=== PATIENT | female | born 1960 | race Two or more races ===

== ENCOUNTER → 2021-07-11 09:32 | Outpatient (BNVA) | payer MEDICARE, MEDICAID, SELFPAY | PROVIDERS: Visit Provider Obstetrics & Gynecology | DX: Z01.419 Encounter for gynecological examination (general) (routine) without abnormal findings (principal) | CPT/HCPCS: 99212 ==

== ENCOUNTER 2022-09-26 08:51 | Outpatient (REF) | payer OTHER, SELFPAY ==
[2022-09-27 10:01] LABS: BV Int Neg Control Negative (Negative); BV Int Pos Control Positive (Positive)
== END 2022-09-26 08:52 | disposition home or self-care (01) ==
LOC: HO.LNP 08:51
PROVIDERS: Visit Provider Obstetrics & Gynecology
DX: N90.89 Other specified noninflammatory disorders of vulva and perineum (principal)
CPT/HCPCS: 87480; 87510; 87660; 99212

== ENCOUNTER 2022-10-17 08:07 | Outpatient (REF) | payer MEDICARE, SELFPAY ==
[2022-10-17 09:28] LABS: Syphilis Screen Nonreactive (Nonreactive)
[2022-10-18 05:09] LABS: HBsAGNum1 0.28 S/CO (0.00-0.99); HIV AB/AG Nonreactive (Nonreactive); HIV Num 1 0.06 S/CO (0.00-0.99); Hepatitis B Surface Antigen Negative (Negative); ~Hepatitis C Antibody Nonreactive (Nonreactive)
== END 2022-10-17 08:08 | disposition home or self-care (01) ==
LOC: HO.LAB 08:07
PROVIDERS: Visit Provider Obstetrics & Gynecology
DX: N76.0 Acute vaginitis (principal); B96.89 Other specified bacterial agents as the cause of diseases classified elsewhere; L30.9 Dermatitis, unspecified
CPT/HCPCS: 36415; 86780; 86803; 87340; 87389; 99212

== ENCOUNTER → 2022-11-02 08:52 | Outpatient (BNVA) | payer MEDICARE, MEDICAID, SELFPAY | PROVIDERS: Visit Provider Obstetrics & Gynecology | DX: Z13.89 Encounter for screening for other disorder (principal) ==

== ENCOUNTER 2022-11-22 12:11 | Outpatient (REF) | payer OTHER, SELFPAY | END 2022-11-22 12:12 | disposition home or self-care (01) | LOC: HO.LNP 12:11 | PROVIDERS: Visit Provider Obstetrics & Gynecology | DX: N90.89 Other specified noninflammatory disorders of vulva and perineum (principal) | CPT/HCPCS: 56605; 56606; 88305; 88312; 88341; 88342 ==

== ENCOUNTER 2022-12-01 13:46 | Outpatient (REF) | payer OTHER, SELFPAY ==
[2022-12-02 12:55] LABS: BV Int Neg Control Negative (Negative); BV Int Pos Control Positive (Positive)
== END 2022-12-01 13:47 | disposition home or self-care (01) ==
LOC: HO.LNP 13:46
PROVIDERS: Visit Provider Advanced Practice Midwife
DX: N89.8 Other specified noninflammatory disorders of vagina (principal)
CPT/HCPCS: 87480; 87510; 87660; 99212

== ENCOUNTER → 2022-12-13 09:47 | Outpatient (BNVA) | payer OTHER, SELFPAY | PROVIDERS: Visit Provider Obstetrics & Gynecology | DX: N90.89 Other specified noninflammatory disorders of vulva and perineum (principal); N76.0 Acute vaginitis; B96.89 Other specified bacterial agents as the cause of diseases classified elsewhere | CPT/HCPCS: 99212 ==

== ENCOUNTER 2023-01-17 12:56 | Outpatient (REF) | payer OTHER, SELFPAY ==
[2023-01-18 10:54] LABS: BV Int Neg Control Negative (Negative); BV Int Pos Control Positive (Positive)
== END 2023-01-17 12:57 | disposition home or self-care (01) ==
LOC: HO.LNP 12:56
PROVIDERS: Visit Provider Obstetrics & Gynecology
DX: B37.31 Acute candidiasis of vulva and vagina (principal)
CPT/HCPCS: 87480; 87510; 87660; 99212

== ENCOUNTER 2023-11-06 10:23 | Outpatient (AMB) | payer OTHER, SELFPAY ==
[2023-11-06 10:29] VITALS: BP 136/88; BMI 49.1
--- NOTE | 2023-11-06 10:29 | MHC.OFFVIS ---
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 Machine Operator Present (Annalise THOMPSON) Accompanied by: Self / Same As Patient Allergies JARRET Inhibitors [Jarret Inhibitors] Allergy (Severe, Verified 11/06/23 10:33) SWELLING guaifenesin [From Robitussin A-C] Allergy (Severe, Verified 11/06/23 10:33) SWELLING Iodinated Contrast Media [IV Dye, Iodine Containing] Allergy (Severe, Verified 11/06/23 10:33) SWELLING nifedipine [NIFEDIPINE] Allergy (Unknown, Verified 11/06/23 10:33) SWELLING pioglitazone Allergy (Unknown, Verified 11/06/23 10:33) Unknown diphenhydramine [From Benadryl] Allergy (Verified 11/06/23 10:33) Unknown Robitussin Chest Congestion Allergy (Unknown, Uncoded 11/06/23 10:33) Unknown Robitussin Cold/Congestion Allergy (Unknown, Uncoded 11/06/23 10:33) Unknown Post menopausal: Yes HPI HPI Comments History of Present Illness Details Presenting for annual exam with no complaints. Last Pap smear/HPV were both negative in 2015. No history of abnormal Pap smear last 25 years. Patient had total abdominal hysterectomy with bilateral salpingo oophorectomy for stage I A grade 1 uterine cancer in July 2017, and had 4 years of surveillance at [facility] at [facility] afterwards. Since then patient is doing well with no complaints. Last mammogram was done in [place] 01/07 was normal according the patient, no results available Last colonoscopy was many years ago, the patient is due for another screening colonoscopy [facility] Medical History Diabetes Endometrial cancer Fibromyalgia Hypertension Surgical History Hx of section S/P total abdominal hysterectomy and bilateral salpingo-oophorectomy Family History (Updated 11/06/23 @ 10:39 by Annalise Rutledge CMA) Mother Diabetes HTN (hypertension) Sister Diabetes Father Stroke HTN (hypertension) Social History Household Members: None Housing: Apartment Alcohol intake: current Alcohol intake frequency: holidays/special occasions only Patient Tobacco Use Status: Never used Tobacco Current occupational status: retired Sexual orientation: Straight/Heterosexual Gender identity: Female Female Reproductive History Menstrual Age of Menarche: 12 Menopause type: surgical Total pregnancies: 1 Full term: 1 Number of Living Children: 2 Multiple births: 1 Review of Systems Const All systems reviewed & are unremarkable except as noted in HPI and below Card Reports as per HPI and Reports no additional complaints Resp Reports as per HPI and Reports no additional complaints GI Reports as per HPI and Reports no additional complaints Reports as per HPI Physical Exam Vital Signs: BMI result Body Mass Index 49.1 Const General: cooperative, healthy appearing and comfortable General: Yes bladder normal to palpation External Female Exam: No lesion Speculum Exam - Vagina: normal appearance of the vagina, normal vaginal discharge and not erythematous Speculum Exam - Cervix: Cervix absent Bimanual exam- vagina & uterus: bladder normal to palpation and uterus absent Bimanual Exam- Adnexa, other: Other (No masses detected) Assessment & Plan Assessment & Plan (1) Well woman exam: Code(s): Z01.419 - Encounter for gynecological examination (general) (routine) without abnormal findings Plan: Co testing not indicated since the patient status post hysterectomy with no history of abnormal Pap smears last 25 years. Counseled the patient about the recommended dietary allowance of 1200 mg of Calcium & 800 IU of vitamin D. Instructions given the patient to schedule next screen Mammogram in 01/08. Referred her for screening colonoscopy done. The patient was instructed to perform monthly self-breast exams and to schedule an annual exam in a year; All questions answered and the patient verbalized understanding. Orders: Referrals Gastroenterology Referral Z12.11 - Encounter for screening for malignant neoplasm of colon Coding Level of Care Code Est Pt Prev Care 40-64y(32737) Diagnoses Well woman exam Z01.419
== END 2023-11-06 11:03 | disposition home or self-care (01) ==
PROVIDERS: Visit Provider Obstetrics & Gynecology
DX: Z01.419 Encounter for gynecological examination (general) (routine) without abnormal findings (principal)
CPT/HCPCS: 99396

== ENCOUNTER → 2023-11-06 10:23 | Outpatient (BNVA) | payer OTHER, SELFPAY | PROVIDERS: Visit Provider Obstetrics & Gynecology ==

== ENCOUNTER 2024-01-16 08:49 | Outpatient (AMB) | payer OTHER, SELFPAY ==
--- NOTE | 2024-01-16 08:52 | MHC.OFFVIS ---
Vital Signs 01/16/24 09:07 Height 5 ft 4 in Weight 290 lb BMI 49.8 BP 137/66 Blood Pressure Location Lt brachial Position Sitting Intake Visit Reasons: Colonoscopy Screening Intake Note: Patient is seen in office for colonoscopy screening. Pt c/o: prior colonoscopy over [address] Grimaldo, admits to nausea, denies diarrhea, constipation, vomit, blood in stool or other concerns Cloth Baler Required: No Allergies JARRET Inhibitors [Jarret Inhibitors] Allergy (Severe, Verified 01/16/24 10:10) SWELLING guaifenesin [From Robitussin A-C] Allergy (Severe, Verified 01/16/24 10:10) SWELLING Iodinated Contrast Media [IV Dye, Iodine Containing] Allergy (Severe, Verified 01/16/24 10:10) SWELLING nifedipine [NIFEDIPINE] Allergy (Unknown, Verified 01/16/24 10:10) SWELLING pioglitazone Allergy (Unknown, Verified 01/16/24 10:10) Unknown diphenhydramine [From Benadryl] Allergy (Verified 01/16/24 10:10) Unknown Robitussin Chest Congestion Allergy (Unknown, Uncoded 01/16/24 08:57) Unknown Robitussin Cold/Congestion Allergy (Unknown, Uncoded 01/16/24 08:57) Unknown HPI HPI Colonoscopy Screening: Details: 63 year old? female here today for pre colonoscopy screening.? Patient was seen Dr. Grimaldo in the past and was referred to his office. Patient called his office and unable to make an appointment. Appointment made here as patient wants to go for bariatric surgery. Has seen bariatric services in [facility] and would like to try to see our providers. Referral to [facility] bariatric services will be made. Last colonoscopy was done in 2019 and tubular adenoma found. Patient currently experiences constipation postprandial abdominal fullness and bloating. Postprandial epigastric pain. Patient feels epigastric burning all the time. Reports that during the night she has acid reflux as well. Patient reports that she does not eat past 19:00. Patient is diabetic and is on Trulicity. Currently is not taking Trulicity as medication is on back order. No Trulicity before denies 2 weeks. Patient reports that she is currently on pantoprazole 20 mg every morning, however patient states that sometimes she has to take 2nd dose in the evening because of severe acid reflux. Patient reports occasional dysphagia without odynophagia. [facility] Medical History (Updated 11/06/23 @ 10:52 by Andres Tavera MD) Endometrial cancer Fibromyalgia Hypertension Diabetes Surgical History (Updated 01/16/24 @ 08:59 by JAY Egan) Hx of colonoscopy Hx of section S/P total abdominal hysterectomy and bilateral salpingo-oophorectomy Family History Mother Diabetes HTN (hypertension) Sister Diabetes Father Stroke HTN (hypertension) Social History Household Members: None Housing: Apartment Alcohol intake: current Alcohol intake frequency: holidays/special occasions only Patient Tobacco Use Status: Never used Tobacco Current occupational status: retired Sexual orientation: Straight/Heterosexual Gender identity: Female Female Reproductive History Menstrual Age of Menarche: 12 Review of Systems Const Denies weight gain and Denies weight loss ENT Reports no additional complaints, Reports dysphagia (Occasional) and Denies odynophagia Card Reports no additional complaints Resp Reports no additional complaints GI Reports abdominal pain (Epigastric), Denies belching, Denies melena, Reports bloating, Reports constipation, Reports dysphagia (Occasional), Denies excessive flatus, Reports dyspepsia, Reports heartburn, Denies diarrhea, Denies loose stools, Denies nausea, Denies odynophagia and Denies vomiting Reports no additional complaints Musc Reports no additional complaints Neuro Reports no additional complaints Psych Reports no additional complaints Endo Reports no additional complaints Physical Exam Vital Signs: Last Vital Signs BP 137/66 01/16/24 09:07 BMI result Body Mass Index 49.8 Const General: healthy appearing and no acute distress Nutritional Appearance: obese Orientation/consciousness: patient oriented x3 Resp Effort & Inspection: normal respiratory effort, able to speak in complete sentences, no tracheal deviation and symmetric chest movement Auscultation: clear to auscultation bilaterally Cardio Rate: regular rate GI Inspection: Yes normal to inspection, No distended and Yes obesity Palpation (GI): Soft to palpation, not firm, nontender and No hepatosplenomegaly present Auscultation: normal bowel sounds General: Yes no CVA tenderness Back/Spine/Pelvis Back: no CVA tenderness Skin General skin exam: elasticity normal, turgor normal and dry skin Neuro General: patient oriented x3 Psych Appearance: grossly normal Mental Status: mental status grossly normal Assessment & Plan Assessment & Plan (1) Encounter for screening colonoscopy: Code(s): Z12.11 - Encounter for screening for malignant neoplasm of colon Category: Medical (2) Dyspepsia: Code(s): R10.13 - Epigastric pain (3) Dysphagia: Code(s): R13.10 - Dysphagia, unspecified Qualifiers: Dysphagia type: pharyngoesophageal phase Qualified Code(s): R13.14 - Dysphagia, pharyngoesophageal phase (4) GERD (gastroesophageal reflux disease): Code(s): K21.9 - Gastro-esophageal reflux disease without esophagitis Qualifiers: Esophagitis presence: esophagitis presence not specified Qualified Code(s): K21.9 - Gastro-esophageal reflux disease without esophagitis (5) Constipation: Code(s): K59.00 - Constipation, unspecified Qualifiers: Constipation type: slow transit constipation Qualified Code(s): K59.01 - Slow transit constipation Plan Continue taking pantoprazole daily. Will add famotidine at bedtime. Patient will start taking senna daily. Increase fluid intake and activity to promote better bowel motility. Patient will be sent for upper GI study to check for reflux, hernia patient reports to have dyspepsia with dysphagia frequent feeling of fullness postprandially. Gastric emptying study normal in 2020. Referral to bariatric services. I will see patient in 5-6 weeks to re-evaluate. Patient is agreeable to this plan and verbalizes understanding of instructions. She was given the opportunity to ask questions and all questions answered. Thank you for allowing me to participate in her care Orders: Orders FL upper GI small bowel Today K21.9 - Gastro-esophageal reflux disease without esophagitis Referrals Bariatric Surgery Referral E66.01 - Morbid (severe) obesity due to excess calories Medications: New sennosides (Natural Senna Laxative) 17.2 mg (2 x 8.6 mg) PO BEDTIME 60 tabs 3RF constipation K59.00 - Constipation, unspecified famotidine (Pepcid) 20 mg PO BEDTIME 30 tabs 3RF K21.9 - Gastro-esophageal reflux disease without esophagitis Coding Level of Care Code New Pt Level 4 (19515) Diagnoses Encounter for screening colonoscopy Z12.11 Dyspepsia R10.13 Pharyngoesophageal dysphagia R13.14 Dysphagia type: pharyngoesophageal phase Gastroesophageal reflux disease, unspecified whether esophagitis present K21.9 Esophagitis presence: esophagitis presence not specified Slow transit constipation K59.01 Constipation type: slow transit constipation Time Spent (min) 45 Comment 30 minutes spent with patient and additional 15 minutes spent reviewing her records
[2024-01-16 09:07] VITALS: BP 137/66; BMI 49.8
== END 2024-01-16 09:56 | disposition home or self-care (01) ==
PROVIDERS: Visit Provider Nurse Practitioner Family
DX: K21.9 Gastro-esophageal reflux disease without esophagitis (principal); K59.01 Slow transit constipation; R13.14 Dysphagia, pharyngoesophageal phase; Z12.11 Encounter for screening for malignant neoplasm of colon
CPT/HCPCS: 99204

== ENCOUNTER → 2024-01-16 08:49 | Outpatient (BNVA) | payer OTHER, SELFPAY | PROVIDERS: Visit Provider Nurse Practitioner Family | DX: Z12.11 Encounter for screening for malignant neoplasm of colon (principal); K21.9 Gastro-esophageal reflux disease without esophagitis; K59.01 Slow transit constipation; R10.13 Epigastric pain; R13.14 Dysphagia, pharyngoesophageal phase | CPT/HCPCS: 99202 ==

== ENCOUNTER 2024-03-13 08:06 | Outpatient (REF) | payer OTHER, SELFPAY ==
--- NOTE | ~2024-03-13 | FL_ITS ---
EXAMINATION: XR FLUOROSCOPY UPPER GI WITH AIR AND SMALL BOWEL SERIES CLINICAL INFORMATION: Reflux. Lower abdominal pain COMPARISON: None TECHNIQUE: Fluoroscopic air contrast upper GI examination was performed utilizing standard techniques with thin and thick barium and effervescent granules. Numerous spot images were obtained. This was followed by small bowel series utilizing overhead abdominal radiographs at certain intervals during the propagation of contrast through the small bowel to the ileocecal valve. Fluoroscopic spot radiographs were taken of any abnormal findings. FINDINGS: UPPER GI SERIES: Dual and single contrast images of the esophagus demonstrate normal caliber and contour. No masses or strictures are seen. Esophageal peristalsis was mildly disorganized. Small type I hiatal hernia is present. Gastroesophageal reflux is seen up to the level the aortic arch. Dual contrast and single contrast images of the stomach demonstrated normal contour and mucosal pattern without evidence of mass, ulceration, or other abnormality. Contrast freely passed into the gastric antrum and duodenal bulb without delay. Single and air-contrast images of the duodenal bulb demonstrate no abnormality. The duodenal sweep has a normal appearance, course, and mucosal fold appearance. 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 Moderate amount is retained stool within the colon. Degenerative facet changes are present at L5-S1. Mild degenerative changes in both hip joints. No organomegaly. No abnormal soft tissue calcification. The imaged small bowel has a normal fold pattern and caliber. There are no dilated segments or loops of jejunum or ileum. Contrast does not progress beyond the distal ileum in the right lower quadrant in the pelvis after 3 hours. This segment of bowel is not dilated, and overlies the right iliac wing. It is normal in caliber without dilatation. Spot radiographs performed demonstrate no definitive abnormality although a slightly more distal ileal stricture cannot be ruled out due to failure to progress into the ileocecal valve. This could also be from extensive constipation (RF 1-22, image 84 of 138). FLUOROSCOPY TIME: 8 minutes 36 seconds Number of Spot Images: 21 Number of Cine: 13 Flat plates: 10 DOSE AREA PRODUCT: [id number] uGy-m2 (microgray-meter squared) FL/FL upper GI small bowel IMPRESSION: 1. No laryngeal penetration or aspiration. 2. Mildly disorganized esophageal peristalsis. 3. Small type I hiatal hernia. 4. Moderate gaseous esophageal reflux. 5. Normal-appearing small bowel to the level of the terminal ileum. 6. Failure of contrast to progress beyond the distal ileum in the right lower quadrant, overlying the right iliac bone, after 3 hours. Uncertain etiology of the extended transit time and lack of transit beyond this region. Spot views demonstrated no abnormalities although more posterior loops were obscured. There are no dilated loops of small bowel present. Cannot exclude a nonvisualized stricture or adhesion. This could also be due to the underlying constipation. Recommend correlation with CT enterography to better assess, if felt warranted. This procedure was performed by Jung Way PA-C, and supervised by Dr. Thomas
== END 2024-03-13 08:07 | disposition home or self-care (01) ==
LOC: HO.XRAY 08:06
PROVIDERS: Visit Provider Nurse Practitioner Family
DX: K21.9 Gastro-esophageal reflux disease without esophagitis (principal)
CPT/HCPCS: 74240; 74248

== ENCOUNTER → 2024-03-13 08:07 | Outpatient (BNV) | payer OTHER, SELFPAY | PROVIDERS: Visit Provider Physician Assistant Surgical | DX: K21.9 Gastro-esophageal reflux disease without esophagitis (principal) | CPT/HCPCS: 74246; 74248 ==

== ENCOUNTER 2024-03-14 09:15 | Outpatient (AMB) | payer OTHER, SELFPAY ==
--- OUTSIDE RECORDS SUMMARY | 2024-03-14 09:20 | XMS_ITS | Continuity of Care Document ---
Author Organization [facility] Address [address] [place] [address]- Care Team Providers Care Editor News Name Role Phone Julienne SANDERSON, Gila [place] Primary Care Physician En[place] [facility] [place]): 12/28/23 - 02/22/[address] [address]- Attending Physician: Sung Barr PharmD Admitting Physician: Sung Barr PharmD Allergies, Adverse Reactions, Alerts Substance Reaction Severity Status amitriptyline 1 Active losartan 2 Active pregabalin swelling Moderate Active Jardiance yeast infection vaginal itching Active metFORMIN Stomach upset Active asparagine enzymes unknown Active JAKY inhibitors swell up Active Robitussin tongue swells Persistent Moderate Active Contrast Dye 3 swelling Active 1Reports caused breathing problems 2Tingling of lips 3pt allergic to IV contrast dye Immunizations Given and Recorded Vaccine Date Status Refusal Reason influenza virus vaccine, inactivated 06/21/23 Give n influenza virus vaccine, inactivated 07/06/22 Give n influenza virus vaccine, inactivated 07/11/21 Darrel rded influenza virus vaccine, inactivated 06/18/20 Give n influenza virus vaccine, inactivated 08/22/19 Give n influenza virus vaccine, inactivated 06/05/18 Darrel rded influenza virus vaccine, inactivated 06/17/17 Darrel rded [id number] 12y+ bivalent booster vax 07/06/22 Given SARS-CoV-2 (COVID-19) mRNA-1273 vaccine 11/02/21 G iven SARS-CoV-2 (COVID-19) mRNA-1273 vaccine 12/23/20 R ecorded SARS-CoV-2 (COVID-19) mRNA-1273 vaccine 12/23/20 R ecorded SARS-CoV-2 (COVID-19) mRNA-1273 vaccine 11/26/20 R ecorded zoster vaccine, inactivated 06/05/18 Recorded zoster vaccine, inactivated 03/13/18 Recorded pneumococcal 23-valent vaccine 02/04/18 Recorded pneumococcal 23-valent vaccine 10/20/17 Given tetanus/diphtheria/pertussis, acel(Tdap) 02/04/18 Recorded Hepatitis B Vaccine (old term) 05/04/11 Recorded Hepatitis B Vaccine (old term) 10/28/10 Recorded Hepatitis B Vaccine (old term) 09/21/10 Recorded Medications acetaminophen 500 mg oral tablet 2 tablet = 1,000 mg, By Mouth, 3 times a day, PRN Pain , Mild, for 30 days, # 180 tablet, 1 Refills, Acute 03/10/24 11:03:00 EDT, 01/10/24 11:03:00 EDT, Tablet, [facility], Partial fill upon patient request if the prescription is for a sched... Start Date: 01/10/24 Stop Date: 03/10/24 Status: Ordered Aerochamber See Instructions, # 1 units, Maintenance, Use with inhalers, 01/08/18 13:17:00 EDT, Compound Start Date: 01/08/18 Status: Ordered Albuterol (Eqv-ProAir HFA) 90 mcg/inh inhalation aerosol 1 puffs, Inhalation, Every 6 hours, # 54 Gm, 5 Refills, Maintenance, 09/22/22 12:27:00 EST, [facility], Partial fill upon patient request if the prescription is for a schedule II opioid drug., 1 puffs Inhalation Every 6 hours, 163, cm, 08/28... Start Date: 09/22/22 Status: Ordered albuterol CFC free 90 mcg/inh inhalation aerosol 1, puffs, Inhalation, 4 times a day, PRN, # 25 Gm, Refills 0, Tot. Refills 0, Maintenance, 08/01/2311:27:00 EST, Aerosol, Route to Pharmacy Electronically, [id number], [facility], 163, cm, 08/01/23 11:12:00 EST, Height, 163.5, kg, 03... Start Date: 08/01/23 Status: Ordered Alcohol Wipes See Instructions, # 100 each, Refills 11, Tot. Refills 11, Maintenance, use 3 times Daily as directed for Type 2 Diabetes Mellitus E11.65, 10/12/23 10:54:00 EST, Supply, 164, cm, 10/12/23 9:52:00 EST, Height, 134, kg, 08/31/23 16:55:00 EST, Dry Weight Start Date: 10/12/23 Status: Ordered Maya Allergy 60 mg oral tablet 1 tablet = 60 mg, By Mouth, 2 times a day, PRN Other, Please take as needed for allergies, # 90 tablet, 0 Refills, Maintenance, 01/10/24 10:59:00 EDT, Tablet, [facility], Partial fill upon patient request if the prescription is for a schedul... Start Date: 01/10/24 Stop Date: 04/09/24 Status: Ordered ascorbic acid 250 mg oral tablet, chewable 1 tablet = 250 mg, Chew, Daily, # 90 tablet, 2 Refills, Maintenance, 11/22/23 14:18:00 EST, Chew Tablet, [facility], Partial fill upon patient request if the prescription is for a schedule II opioid drug., 164, cm, 10/12/23 9:52:00 EST, [place]... Start Date: 11/22/23 Stop Date: 08/18/24 Status: Ordered Bladder control pads maximum Bladder control pads maximum, See Instructions, # 90 each, Refills 11, Tot. Refills 11, Maintenance, For urinary incontinence, use 3 times a day as needed for incontinence., 05/10/23 8:01:00 EDT, Supply Start Date: 05/10/23 Status: Ordered capsaicin 0.025% topical cream 1 application, Topically, 2 times a day, for 90 days, For bilateral foot neuropathy Please make sure you wash your hangs after applying., # 60 Gm, 0 Refills, Acute 04/09/24 11:00:00 EDT, 01/10/24 11:00:00 EDT, Cream, [facility], Partial eli... Start Date: 01/10/24 Stop Date: 04/09/24 Status: Ordered carvedilol 25 mg oral tablet 1, tablet, By Mouth, 2 times a day, # 180 tablet, Refills 0, Tot. Refills 0, Maintenance, 12/28/23 9:56:00 EDT, Route to Pharmacy Electronically, [facility], 164, cm, 12/28/23 9:39:00 EDT, Height, 131.1, kg, 12/03/23 9:28:00 EDT, Dry Weight Start Date: 12/28/23 Status: Ordered Cushion for Lift Chair Recliner Cushion for Lift Chair Recliner, See Instructions, # 1 Unknown, Refills 0, Tot. Refills 0, Maintenance, immobility, icd 10 M62. 3, 05/10/23 8:03:00 EDT, Supply Start Date: 05/10/23 Status: Ordered diclofenac 1% topical gel See Instructions, APPLY TOPICALLY 4 TIMES A DAY DIRECTED, # 100 Gm, 0 Refills, Maintenance, 02/08/24 15:02:00 EDT, [facility], 25, APPLY TOPICALLY 4 TIMES A DAY DIRECTED, 164, cm, 01/10/24 10:18:00 EDT, Height, 131.1, kg, 12/03/23 9:28... Start Date: 02/08/24 Status: Ordered Electric Recliner Electric Recliner, See Instructions, # 1 Unknown, Refills 0, Tot. Refills 0, Maintenance, OrthopneaICD 10 code R06. 01, 12/29/22 12:53:00 EDT, Supply Start Date: 12/29/22 Status: Ordered Eucerin Plus topical lotion 1 applicator, Topically, 2 times a day, Apply to affected area following application of steroid cream., # 480 mL, 0 Refills, Maintenance, 10/13/22 14:15:00 EST, [facility], Partial fill upon patient request if the prescription is for a sched... Start Date: 10/13/22 Status: Ordered ferrous sulfate 325 mg oral enteric coated tablet 325 mg, 1, tablet, By Mouth, Every other day, Iron supplement. Take once a day with food., # 90 tablet, Refills 1, Tot. Refills 1, Maintenance, 11/30/22 13:37:00 EDT, Route to Pharmacy Electronically, [facility], 163, cm, 11/24/22 7:42:00 E... Start Date: 11/30/22 Status: Ordered ferrous sulfate 325 mg oral enteric coated tablet See Instructions, Take one tablet By Mouth every other day. Take with vitamin C to help absorption,# 45 tablet, Refills 0, Tot. Refills 0, Maintenance, 11/21/23 14:11:00 EST, Instructions Replace Required Details, Route to Pharmacy Electronically, Sp... Start Date: 11/21/23 Status: Ordered fluticasone 50 mcg/inh nasal spray 1 sprays, Nares, Both, 2 times a day, # 16 Gm, 0 Refills, Maintenance, 01/10/24 10:57:00 EDT, [place], [facility], Partial fill upon patient request if the prescription is for a schedule II opioid drug., 1 sprays Nares, Both 2 times a day, 164... Start Date: 01/10/24 Status: Ordered Freestyle Lynsey 3 Brooks Freestyle Lynsey 3 Brooks, See Instructions, # 1 each, Refills 0, Tot. Refills 0, Maintenance, Use to check blood sugar daily as directed. Replace sensor every 14 days. Diagnosis E11.65, duration of use 365 days., 11/09/23 12:03:00 EST, Supply, 164, cm... Start Date: 11/09/23 Status: Ordered Freestyle Lynsey 3 sensor Freestyle Lynsey 3 sensor, See Instructions, # 2 each, Refills 11, Tot. Refills 11, Maintenance, Useto check blood sugar daily as directed. Replace sensor every 14 days. Diagnosis E11.65, duration ofuse 365 days., 11/09/23 12:03:00 EST, Supply, 164,... Start Date: 11/09/23 Status: Ordered Freestyle Lite Lancets See Instructions, # 1 box, Refills 11, Tot. Refills 11, Maintenance, use to check blood sugars 2x aday dx type 2 diabetes E11.68, 02/04/18 10:45:25 EDT, Compound Start Date: 02/04/18 Status: Ordered Freestyle Lite Monitor See Instructions, # 1 each, Refills 0, Tot. Refills 0, Maintenance, use to check blood sugars 3x a day dx type 2 diabetes E11.68s, 10/12/23 10:53:00 EST, Compound, 164, cm, 10/12/23 9:52:00 EST, Height, 134, kg, 08/31/23 16:55:00 EST, Dry Weight Start Date: 10/12/23 Stop Date: 11/11/23 Status: Ordered Freestyle Lite Test Strips See Instructions, # 100 each, Refills 11, Tot. Refills 11, Maintenance, use to check blood sugars 3x a day as back-up to Lynsey sensors dx type 2 diabetes E11.9, 10/12/23 10:53:00 EST, Compound, 164, cm, 10/12/23 9:52:00 EST, Height, 134, kg, 08/31/23... Start Date: 10/12/23 Status: Ordered grabber/choreography director tool grabber/choreography director tool, See Instructions, # 1 each, Refills 0, Tot. Refills 0, Maintenance, Dx: - Severe OA of knee M17. 9 - Fibromyalgia M79. 7 - Obesity E66 DME: Grabber/choreography director tool Duration: 99 Dispense: 1 each, 04/26/23 9:20:00 EDT, [facility]... Start Date: 04/26/23 Status: Ordered hydrochlorothiazide 25 mg oral tablet 1, tablet, By Mouth, Daily, X30 DAYS., # 30 tablet, Refills 3, Maintenance, 11/15/23 12:20:00 EST, Route to Pharmacy Electronically, [facility], 164, cm, 11/01/23 10:12:00 EST, Height, 134,kg, 08/31/23 16:55:00 EST, Dry Weight Start Date: 11/15/23 Status: Ordered avril needles for humolog kwik pens avril needles for humolog kwik pens, See Instructions, # 100 each, Refills 1, Tot. Refills 1, Maintenance, TID sliding scale, 08/15/22 9:54:00 EST, Supply, 163, cm, 08/11/22 13:04:00 EST, Height, 118.1, kg, 05/29/22 9:57:00 EDT, Dry Weight Start Date: 08/15/22 Status: Ordered nitroglycerin 0.4 mg sublingual tablet 1 tablet = 0.4 mg, Sublingual, Every 5 minutes, PRN as needed for chest pain, not to exceed 3 doses/15 min--if pain persists, seek medical attention, # 25 tablet, 0 Refills, Maintenance, 09/22/22 12:27:00 EST, Tablet, [facility], Partial eli... Start Date: 09/22/22 Status: Ordered NovoLOG FlexPen 100 units/mL injectable solution = 12 units, Subcutaneous Injection, 3 times a day before meals, # 15 mL, 2 Refills, Maintenance, 09/06/23 9:20:00 EST, [facility], 164, cm, 08/31/23 16:55:00 EST, Height, 134, kg, 08/31/23 16:55:00 EST, Dry Weight Start Date: 09/06/23 Status: Ordered ondansetron 4 mg oral tablet 1 tablet, By Mouth, Every 8 hours, PRN NEEDED FOR NAUSEA/VOMITING, # 40 tablet, 0 Refills, Maintenance, 12/31/23 13:20:00 EDT, [facility], 164, cm, 12/28/23 9:39:00 EDT, Height, 131.1, kg, 12/03/23 9:28:00 EDT, Dry Weight Start Date: 12/31/23 Status: Ordered Ozempic 8 mg/3 mL (2 mg dose) subcutaneous solution = 2 mg, Subcutaneous Injection, Every week, in the abdomen, thigh, or upper arm, # 3 mL, 3 Refills,Maintenance, 01/16/24 12:44:00 EDT, Solution, [facility], To replace Trulicity, 164, cm, 01/10/24 10:18:00 EDT, Height, 131.1, kg, 12/03/23 9... Start Date: 01/16/24 Status: Ordered pantoprazole 20 mg oral delayed release tablet 1 tablet, By Mouth, Daily, for 90 days, # 90 tablet, 2 Refills, Physician Stop 10/06/24 11:02:00 EST, 01/10/24 11:02:00 EDT, 164, cm, 01/10/24 10:18:00 EDT, Height, 131.1, kg, 12/03/23 9:28:00 EDT, Dry Weight Start Date: 01/10/24 Stop Date: 10/06/24 Status: Ordered Pen Max, 31 G x 5 mm BD Ultra Fine III See Instructions, # 100 each, Refills 5, Tot. Refills 5, Maintenance, use 4 times per day as directed for Diabetes Mellitus, 06/28/22 14:59:00 EDT, Supply, 163, cm, 06/07/22 10:06:00 EDT, Height, 118.1, kg, 05/29/22 9:57:00 EDT, Dry Weight Start Date: 06/28/22 Stop Date: 12/25/22 Status: Ordered Pen Max, 32 G x 4 mm BD Ultra Fine III See instructions, # 200 each, Refills 11, Tot. Refills 11, Maintenance, Use to inject insulin 5 times per day., 10/12/23 10:55:00 EST, Supply, 164, cm, 10/12/23 9:52:00 EST, Height, 134, kg, 08/31/2316:55:00 EST, Dry Weight Start Date: 10/12/23 Stop Date: 09/26/26 Status: Ordered rosuvastatin 10 mg oral tablet 1 tablet = 10 mg, By Mouth, Daily, # 30 tablet, 5 Refills, Maintenance, 09/06/23 9:20:00 EST, Tablet, [facility], Partial fill upon patient request if the prescription is for a schedule II opioid drug., 164, cm, 08/31/23 16:55:00 EST, Height... Start Date: 09/06/23 Stop Date: 03/04/24 Status: Ordered Shower chair Shower chair, See Instructions, # 1 Unknown, Refills 0, Tot. Refills 0, Maintenance, Mobility impairment. Z74. 09, 10/21/21 9:31:00 EST, Supply Start Date: 10/21/21 Status: Ordered Tresiba FlexTouch 200 units/mL subcutaneous solution = 48 units, Subcutaneous Injection, Daily, rotate injection sites, # 9 mL, 3 Refills, Maintenance, 12/28/23 9:51:00 EDT, Solution, [facility], To replace Lantus, 164, cm, 12/28/23 9:39:00 EDT, Height, 131.1, kg, 12/03/23 9:28:00 EDT, Dry Weight Start Date: 12/28/23 Status: Ordered triamcinolone 0.025% topical cream See Instructions, Apply to affected areas twice per day until symptoms resolve, for no longer than 14 days., # 60 Gm, 0 Refills, Maintenance, 10/13/22 14:15:00 EST, [facility], Partial fillupon patient request if the prescription is for a s... Start Date: 10/13/22 Status: Ordered VITAMIN D3 1000UNIT VITAMIN D3 1000UNIT, 1, capsule, By Mouth, Daily, # 30 capsule, 4 Refills, Maintenance, 08/28/23 14:01:00 EST, 163, cm, 08/20/23 9:33:00 EST, Height, 163.5, kg, 11/24/22 7:42:00 EST, Dry Weight Start Date: 08/28/23 Status: Ordered VITAMIN D3 1000UNIT VITAMIN D3 1000UNIT, See Instructions, # 30 capsule, 3 Refills, Maintenance, TAKE 1 CAPSULE BY MOUTH DAILY, 02/13/24 8:45:00 EDT, 164, cm, 01/10/24 10:18:00 EDT, Height, 131.1, kg, 12/03/23 9:28:00 EDT, Dry Weight Start Date: 02/13/24 Status: Ordered Problem List Condition Confirmation Course Effective Dates Status H ealth Status Informant CKD stage 3 secondary to diabetes Confirmed Active COVID-19 virus infection Confirmed 09/04/21 Active Depression Confirmed Active Diabetes with associated nephropathy Confirmed Active Diastolic dysfunction Confirmed Active Dry skin dermatitis Confirmed 11/11/20 Active Dyspnea on exertion Confirmed Active Fibromyalgia Confirmed Active GERD (gastroesophageal reflux disease) Confirmed Active HTN (hypertension) Confirmed Active Hypothyroid 1 Confirmed Active Endometrial ca Confirmed Active Morbid obesity Confirmed Active Diabetic neuropathy Confirmed Active Obesity Confirmed Active Obstructive sleep apnea: Confirmed Active Onychogryposis Confirmed 11/11/20 Active Osteoarthritis of knee Confirmed Active [facility] Care Management [facility], Winifred Ben [phone] Confirmed Active Restless leg syndrome Confirmed Active Severe obesity Confirmed Active Tubular adenoma of colon 2 Confirmed 03/24/19 Active Urinary incontinence Confirmed Active Uterine fibroid Confirmed Active 1Right thyroid lobectomy in 2009 for benign nodule. [facility] needed [facility] therapy subsequently[facility] Social History Social History Type Response Smoking Status Never smoker entered on: 08/03/17 Sex Patient Care team information Care Team Personnel Name: Gila Robins MD Position: [facility] Resident Member Role: PCP Address: Address: [address] [place] [address]- Name: Dilcia Lawrence RN Position: S RN Member Role: Primary Care Nurse Name: Molly Esteban RN Position: S RN Member Role: Primary Care Nurse Name: Anh Bardales RN Position: S RN Member Role: Primary Care Nurse Name: Jody Solano RN Position: [facility] RN Member Role: Primary Care Nurse Care Team Related Persons Name: ENEDINA SINGH Address: home [address] [place] [address] Name: DAT SINGH Address: [address] [place] [address] Name: TYLER DUNLAP Address: home [address] [place] [address]
--- OUTSIDE RECORDS SUMMARY | 2024-03-14 09:20 | XMS_ITS | Continuity of Care Document ---
Author Organization [facility] Address [address] [place] [address] [address] [place] [address]- Care Team Providers Care Fresh Meat Grader Name Role Phone Julienne SANDERSON, Gila Boston Primary Care Physician Encounter [facility] Date(s): 01/11/24 - 02/10/24 [facility] [address] [place] [address]- Allergies, Adverse Reactions, Alerts Substance Reaction Severity Status amitriptyline 1 Active losartan 2 Active asparagine enzymes unknown Active Robitussin tongue swells Persistent Moderate Active Contrast Dye 3 swelling Active pregabalin swelling Moderate Active JAKY inhibitors swell up Active metFORMIN Stomach upset Active Jardiance yeast infection vaginal itching Active 1Reports caused breathing problems 2Tingling of [...] influenza virus vaccine, inactivated 06/17/17 Darrel rded [id number] 12y+ bivalent booster vax 07/06/22 Given SARS-CoV-2 [...] 03/10/24 11:03:00 EDT, 01/10/24 11:03:00 EDT, Tablet, [facility], Partial fill upon patient request if the prescription is for a sched... Start Date: 01/10/24 Stop Date: 03/10/24 Status: Ordered Aerochamber See Instructions, # 1 units, Maintenance, Use with inhalers, 01/08/18 13:17:00 EDT, Compound Start Date: 01/08/18 Status: Ordered Albuterol (Eqv-ProAir HFA) 90 mcg/inh inhalation aerosol 1 puffs, Inhalation, Every 6 hours, # 54 Gm, 5 Refills, Maintenance, 09/22/22 12:27:00 EST, [facility], Partial fill upon patient request if the prescription is for a schedule II opioid drug., 1 puffs Inhalation Every 6 hours, 163, cm, 08/28... Start Date: 09/22/22 Status: Ordered albuterol CFC free 90 mcg/inh inhalation aerosol 1, puffs, Inhalation, 4 times a day, PRN, # 25 Gm, Refills 0, Tot. Refills 0, Maintenance, 08/01/2311:27:00 EST, Aerosol, Route to Pharmacy Electronically, NCPDP_[id number], [facility], 163, cm, 08/01/23 11:12:00 EST, Height, 163.5, kg, ... Start Date: 08/01/23 Status: Ordered Alcohol Wipes [...] 0 Refills, Maintenance, 01/10/24 10:59:00 EDT, Tablet, [facility], Partial fill upon patient request if the prescription is for a schedul... Start Date: 01/10/24 Stop Date: 04/09/24 Status: Ordered ascorbic acid 250 mg oral tablet, chewable 1 tablet = 250 mg, Chew, Daily, # 90 tablet, 2 Refills, Maintenance, 11/22/23 14:18:00 EST, Chew Tablet, [facility], Partial fill upon patient request if [...] 04/09/24 11:00:00 EDT, 01/10/24 11:00:00 EDT, Cream, [facility], Partial eli... Start Date: 01/10/24 Stop Date: 04/09/24 Status: Ordered carvedilol 25 mg oral tablet 1, tablet, By Mouth, 2 times a day, # 180 tablet, Refills 0, Tot. Refills 0, Maintenance, 12/28/23 9:56:00 EDT, Route to Pharmacy Electronically, [facility], 164, cm, 12/28/23 9:39:00 EDT, Height, [...] Gm, 0 Refills, Maintenance, 02/08/24 15:02:00 EDT, [facility], 25, APPLY TOPICALLY 4 TIMES A [...] mL, 0 Refills, Maintenance, 10/13/22 14:15:00 EST, [facility], Partial fill upon patient request if the prescription is for a sched... Start Date: 10/13/22 Status: Ordered ferrous sulfate 325 mg oral enteric coated tablet 325 mg, 1, tablet, By Mouth, Every other day, Iron supplement. Take once a day with food., # 90 tablet, Refills 1, Tot. Refills 1, Maintenance, 11/30/22 13:37:00 EDT, Route to Pharmacy Electronically, [facility], 163, cm, 11/24/22 7:42:00 E... Start [...] Gm, 0 Refills, Maintenance, 01/10/24 10:57:00 EDT, [place], [facility], Partial fill upon patient request if the prescription is for a schedule II opioid drug., 1 sprays Nares, Both 2 times a day, 164... Start Date: 01/10/24 Status: Ordered Freestyle Lynsey 3 [place] Freestyle Lynsey 3 [place], See Instructions, # 1 each, Refills 0, [...] cm, 10/12/23 9:52:00 EST, Height, 134, kg, 12/15/23 16:55:00 EST, Dry Weight Start Date: 10/12/23 Stop Date: 11/11/23 Status: Ordered Freestyle Lite Test Strips See Instructions, # 100 each, Refills 11, Tot. Refills 11, Maintenance, use to check blood sugars 3x a day as back-up to Lynsey sensors dx type 2 diabetes E11.9, 10/12/23 10:53:00 EST, Compound, 164, cm, 10/12/23 9:52:00 EST, Height, 134, kg, 08/31/23... Start Date: 10/12/23 Status: Ordered grabber/industrial hygiene manager tool grabber/industrial hygiene manager tool, See Instructions, # 1 each, Refills 0, Tot. Refills 0, Maintenance, Dx: - Severe OA of knee M17. 9 - Fibromyalgia M79. 7 - Obesity E66 DME: Grabber/industrial hygiene manager tool Duration: 99 Dispense: 1 each, 04/26/23 9:20:00 EDT, [place]... Start Date: 04/26/23 Status: Ordered hydrochlorothiazide 25 mg oral tablet 1, tablet, By Mouth, Daily, X30 DAYS., # 30 tablet, Refills 3, Maintenance, 11/15/23 12:20:00 EST, Route to Pharmacy Electronically, [facility], 164, cm, 11/01/23 10:12:00 EST, Height, [...] 0 Refills, Maintenance, 09/22/22 12:27:00 EST, Tablet, [facility], Partial eli... Start Date: 09/22/22 Status: Ordered NovoLOG FlexPen 100 units/mL injectable solution = 12 units, Subcutaneous Injection, 3 times a day before meals, # 15 mL, 2 Refills, Maintenance, 09/06/23 9:20:00 EST, [facility], 164, cm, 08/31/23 16:55:00 EST, Height, 134, kg, 08/31/23 16:55:00 EST, Dry Weight Start Date: 09/06/23 Status: Ordered ondansetron 4 mg oral tablet 1 tablet, By Mouth, Every 8 hours, PRN NEEDED FOR NAUSEA/VOMITING, # 40 tablet, 0 Refills, Maintenance, 12/31/23 13:20:00 EDT, [facility], 164, cm, 12/28/23 9:39:00 EDT, Height, 131.1, kg, 12/03/23 9:28:00 EDT, Dry Weight Start Date: 12/31/23 Status: Ordered Ozempic 8 mg/3 mL (2 mg dose) subcutaneous solution = 2 mg, Subcutaneous Injection, Every week, in the abdomen, thigh, or upper arm, # 3 mL, 3 Refills,Maintenance, 01/16/24 12:44:00 EDT, Solution, [facility], To replace Trulicity, 164, cm, 01/10/24 [...] 01/10/24 Stop Date: 10/06/24 Status: Ordered Pen [place], 31 G x 5 mm BD Ultra Fine III See Instructions, # 100 each, Refills 5, Tot. Refills 5, Maintenance, use 4 times per day as directed for Diabetes Mellitus, 06/28/22 14:59:00 EDT, Supply, 163, cm, 06/07/22 10:06:00 EDT, Height, 118.1, kg, 05/29/22 9:57:00 EDT, Dry Weight Start Date: 06/28/22 Stop Date: 12/25/22 Status: Ordered Pen [place], 32 G x 4 mm BD Ultra [...] 5 Refills, Maintenance, 09/06/23 9:20:00 EST, Tablet, [facility], Partial fill upon patient request if [...] 3 Refills, Maintenance, 12/28/23 9:51:00 EDT, Solution, [facility], To replace Lantus, 164, cm, 12/28/23 9:39:00 EDT, Height, 131.1, kg, 12/03/23 9:28:00 EDT, Dry Weight Start Date: 12/28/23 Status: Ordered triamcinolone 0.025% topical cream See Instructions, Apply to affected areas twice per day until symptoms resolve, for no longer than 14 days., # 60 Gm, 0 Refills, Maintenance, 10/13/22 14:15:00 EST, [facility], Partial fillupon patient request if the prescription is for a s... Start Date: 10/13/22 Status: Ordered VITAMIN D3 1000UNIT VITAMIN D3 1000UNIT, 1, capsule, By Mouth, Daily, # 30 capsule, 4 Refills, Maintenance, 08/28/23 14:01:00 EST, 163, cm, 08/20/23 9:33:00 EST, Height, 163.5, kg, 11/24/22 7:42:00 EST, Dry Weight Start Date: 08/28/23 Status: Ordered Problem List Condition Confirmation Course [...] 11/11/20 Active Osteoarthritis of knee Confirmed Active [facility] Care Management [facility] Care, Winifred Contreras [phone] Confirmed Active Restless leg syndrome Confirmed Active Severe obesity Confirmed Active Tubular adenoma of colon 2 Confirmed 03/24/19 Active Urinary incontinence Confirmed Active Uterine fibroid Confirmed Active 1Right thyroid lobectomy in 2009 for benign nodule. [facility] Social History Social History Type Response Smoking Status Never smoker entered on: 08/03/17 Sex Patient Care team information Care Team Personnel Name: Gila Robins MD Position: [facility] Resident Member Role: PCP Address: Address: [address] [place] [id number] Name: Dilcia Lawrence RN Position: S RN Member Role: Primary Care Nurse Name: Molly Esteban RN Position: S RN Member Role: Primary Care Nurse Name: Anh Bardales RN Position: S RN Member Role: Primary Care Nurse Name: Jody Solano RN Position: S RN Member Role: Primary Care Nurse Care Team Related Persons Name: ENEDINA SINGH Address: [address] [place] [address] Name: DAT SINGH Address: [address] [place] [address] Name: TYLER DUNLAP Address: [address] [address]
--- OUTSIDE RECORDS SUMMARY | 2024-03-14 09:21 | XMS_ITS | Continuity of Care Document ---
Author Organization [facility] Address [address] [place] [address]- Care Team Providers Care Construction Teacher Name Role Phone Julienne SANDERSON, Gila Boston Primary Care Physician [phone] Encounter [facility] Date(s): 01/11/24 - 02/10/[address] [address]- Allergies, Adverse Reactions, Alerts Substance Reaction Severity [...] influenza virus vaccine, inactivated 06/17/17 Darrel rded [id number] 12y+ bivalent booster vax 07/06/22 Given SARS-CoV-2 [...] 03/10/24 11:03:00 EDT, 01/10/24 11:03:00 EDT, Tablet, [facility], Partial fill upon patient request if the prescription is for a sched... Start Date: 01/10/24 Stop Date: 03/10/24 Status: Ordered Aerochamber See Instructions, # 1 units, Maintenance, Use with inhalers, 01/08/18 13:17:00 EDT, Compound Start Date: 01/08/18 Status: Ordered Albuterol (Eqv-ProAir HFA) 90 mcg/inh inhalation aerosol 1 puffs, Inhalation, Every 6 hours, # 54 Gm, 5 Refills, Maintenance, 09/22/22 12:27:00 EST, [facility], Partial fill upon patient request if the prescription is for a schedule II opioid drug., 1 puffs Inhalation Every 6 hours, 163, cm, 08/28... Start Date: 09/22/22 Status: Ordered albuterol CFC free 90 mcg/inh inhalation aerosol 1, puffs, Inhalation, 4 times a day, PRN, # 25 Gm, Refills 0, Tot. Refills 0, Maintenance, 08/01/2311:27:00 EST, Aerosol, Route to Pharmacy Electronically, NCPDP_[id number], [facility], 163, cm, 08/01/23 11:12:00 EST, Height, 163.5, kg, ... Start Date: 11/15/23 Status: Ordered Alcohol Wipes See Instructions, # [...] 0 Refills, Maintenance, 01/10/24 10:59:00 EDT, Tablet, [facility], Partial fill upon patient request if the prescription is for a schedul... Start Date: 01/10/24 Stop Date: 04/09/24 Status: Ordered ascorbic acid 250 mg oral tablet, chewable 1 tablet = 250 mg, Chew, Daily, # 90 tablet, 2 Refills, Maintenance, 11/22/23 14:18:00 EST, Chew Tablet, [facility], Partial fill upon patient request if [...] 04/09/24 11:00:00 EDT, 01/10/24 11:00:00 EDT, Cream, [facility], Partial eli... Start Date: 01/10/24 Stop Date: 04/09/24 Status: Ordered carvedilol 25 mg oral tablet 1, tablet, By Mouth, 2 times a day, # 180 tablet, Refills 0, Tot. Refills 0, Maintenance, 12/28/23 9:56:00 EDT, Route to Pharmacy Electronically, [facility], 164, cm, 12/28/23 9:39:00 EDT, Height, [...] Gm, 0 Refills, Maintenance, 02/08/24 15:02:00 EDT, [facility], 25, APPLY TOPICALLY 4 TIMES A [...] mL, 0 Refills, Maintenance, 10/13/22 14:15:00 EST, [facility], Partial fill upon patient request if the prescription is for a sched... Start Date: 10/13/22 Status: Ordered ferrous sulfate 325 mg oral enteric coated tablet 325 mg, 1, tablet, By Mouth, Every other day, Iron supplement. Take once a day with food., # 90 tablet, Refills 1, Tot. Refills 1, Maintenance, 11/30/22 13:37:00 EDT, Route to Pharmacy Electronically, [facility], 163, cm, 11/24/22 7:42:00 E... Start [...] Gm, 0 Refills, Maintenance, 01/10/24 10:57:00 EDT, [place], [facility], Partial fill upon patient request if the prescription is for a schedule II opioid drug., 1 sprays Nares, Both 2 times a day, 164... Start Date: 01/10/24 Status: Ordered Freestyle Lynsey 3 [place] Freestyle Lynsey 3 [place], See Instructions, # 1 each, Refills 0, [...] kg, 08/31/23... Start Date: 10/12/23 Status: Ordered grabber/paving contractor tool grabber/paving contractor tool, See Instructions, # 1 each, Refills 0, Tot. Refills 0, Maintenance, Dx: - Severe OA of knee M17. 9 - Fibromyalgia M79. 7 - Obesity E66 DME: Grabber/paving contractor tool Duration: 99 Dispense: 1 each, 04/26/23 9:20:00 EDT, [place]... Start Date: 04/26/23 Status: Ordered hydrochlorothiazide 25 mg oral tablet 1, tablet, By Mouth, Daily, X30 DAYS., # 30 tablet, Refills 3, Maintenance, 11/15/23 12:20:00 EST, Route to Pharmacy Electronically, [facility], 164, cm, 11/01/23 10:12:00 EST, Height, [...] 0 Refills, Maintenance, 09/22/22 12:27:00 EST, Tablet, [facility], Partial eli... Start Date: 09/22/22 Status: Ordered NovoLOG FlexPen 100 units/mL injectable solution = 12 units, Subcutaneous Injection, 3 times a day before meals, # 15 mL, 2 Refills, Maintenance, 09/06/23 9:20:00 EST, [facility], 164, cm, 08/31/23 16:55:00 EST, Height, 134, kg, 08/31/23 16:55:00 EST, Dry Weight Start Date: 09/06/23 Status: Ordered ondansetron 4 mg oral tablet 1 tablet, By Mouth, Every 8 hours, PRN NEEDED FOR NAUSEA/VOMITING, # 40 tablet, 0 Refills, Maintenance, 12/31/23 13:20:00 EDT, [facility], 164, cm, 12/28/23 9:39:00 EDT, Height, 131.1, kg, 12/03/23 9:28:00 EDT, Dry Weight Start Date: 12/31/23 Status: Ordered Ozempic 8 mg/3 mL (2 mg dose) subcutaneous solution = 2 mg, Subcutaneous Injection, Every week, in the abdomen, thigh, or upper arm, # 3 mL, 3 Refills,Maintenance, 01/16/24 12:44:00 EDT, Solution, [facility], To replace Trulicity, 164, cm, 01/10/24 [...] 01/10/24 Stop Date: 10/06/24 Status: Ordered Pen [place], 31 G x 5 mm BD Ultra Fine III See Instructions, # 100 each, Refills 5, Tot. Refills 5, Maintenance, use 4 times per day as directed for Diabetes Mellitus, 06/28/22 14:59:00 EDT, Supply, 163, cm, 06/07/22 10:06:00 EDT, Height, 118.1, kg, 05/29/22 9:57:00 EDT, Dry Weight Start Date: 06/28/22 Stop Date: 12/25/22 Status: Ordered Pen [place], 32 G x 4 mm BD Ultra [...] 5 Refills, Maintenance, 09/06/23 9:20:00 EST, Tablet, [facility], Partial fill upon patient request if [...] 3 Refills, Maintenance, 12/28/23 9:51:00 EDT, Solution, [facility], To replace Lantus, 164, cm, 12/28/23 9:39:00 EDT, Height, 131.1, kg, 12/03/23 9:28:00 EDT, Dry Weight Start Date: 12/28/23 Status: Ordered triamcinolone 0.025% topical cream See Instructions, Apply to affected areas twice per day until symptoms resolve, for no longer than 14 days., # 60 Gm, 0 Refills, Maintenance, 10/13/22 14:15:00 EST, [facility], Partial fillupon patient request if the [...] 11/11/20 Active Osteoarthritis of knee Confirmed Active [facility] Care Management [facility] Care, Winifred Contreras [phone] Confirmed Active Restless leg syndrome Confirmed Active Severe obesity Confirmed Active Tubular adenoma of colon 2 Confirmed 03/24/19 Active Urinary incontinence Confirmed Active Uterine fibroid Confirmed Active 1Right thyroid lobectomy in 2009 for benign nodule. [facility] not needed [facility] replacement therapy subsequently. [facility] Social History Social History Type Response Smoking Status Never smoker entered on: 08/03/17 Sex Patient Care team information Care Team Personnel Name: Gila Robins MD Position: S Resident Member Role: PCP Address: Address: [address] [place] [id number]- Name: Dilcia Lawrence RN Position: S RN Member Role: Primary Care Nurse Name: Molly Esteban RN Position: S RN Member Role: Primary Care Nurse Name: Anh Bardales RN Position: S RN Member Role: Primary Care Nurse Name: Jody Solano RN Position: S RN Member Role: Primary Care Nurse Care Team Related Persons Name: ENEDINA SINGH Address: [address] [place] [address] Name: DAT SINGH Address: [address] [place] [address] Name: TYLER DUNLAP Address: [address] [address]
--- OUTSIDE RECORDS SUMMARY | 2024-03-14 09:22 | XMS_ITS | Continuity of Care Document ---
Author Organization [facility] Address [address] [place] [address]- Care Team Providers Care Metal Grader Name Role Phone Julienne SANDERSON, Gila Boston Primary Care Physician Encounter [facility] Date(s): 01/15/24 - 02/14/[address] [address]- Allergies, Adverse Reactions, Alerts Substance Reaction Severity Status amitriptyline 1 Active losartan 2 Active pregabalin swelling Moderate Active Jardiance yeast infection vaginal itching Active asparagine enzymes unknown Active JAKY inhibitors swell up Active Robitussin tongue swells Persistent Moderate Active Contrast Dye 3 swelling Active metFORMIN Stomach upset Active 1Reports caused breathing problems 2Tingling of lips 3pt allergic to IV contrast dye Immunizations Given and Recorded Vaccine Date Status Refusal Reason influenza virus vaccine, inactivated 06/21/23 Give n influenza virus vaccine, inactivated 07/06/22 Give n influenza virus vaccine, inactivated 07/11/21 Darrle rded influenza virus vaccine, inactivated 06/18/20 Give n influenza virus vaccine, inactivated 08/22/19 Give n influenza virus vaccine, inactivated 06/05/18 Darrel rded influenza virus vaccine, inactivated 06/17/17 Darrel rded [id number] 12y+ bivalent booster vax 07/06/22 Given SARS-CoV-2 [...] 03/10/24 11:03:00 EDT, 01/10/24 11:03:00 EDT, Tablet, [facility], Partial fill upon patient request if the prescription is for a sched... Start Date: 01/10/24 Stop Date: 03/10/24 Status: Ordered Aerochamber See Instructions, # 1 units, Maintenance, Use with inhalers, 01/08/18 13:17:00 EDT, Compound Start Date: 01/08/18 Status: Ordered Albuterol (Eqv-ProAir HFA) 90 mcg/inh inhalation aerosol 1 puffs, Inhalation, Every 6 hours, # 54 Gm, 5 Refills, Maintenance, 09/22/22 12:27:00 EST, [facility], Partial fill upon patient request if the prescription is for a schedule II opioid drug., 1 puffs Inhalation Every 6 hours, 163, cm, 08/28... Start Date: 09/22/22 Status: Ordered albuterol CFC free 90 mcg/inh inhalation aerosol 1, puffs, Inhalation, 4 times a day, PRN, # 25 Gm, Refills 0, Tot. Refills 0, Maintenance, 08/01/2311:27:00 EST, Aerosol, Route to Pharmacy Electronically, NCPDP_[id number], [facility], 163, cm, 08/01/23 11:12:00 EST, Height, [...] 0 Refills, Maintenance, 01/10/24 10:59:00 EDT, Tablet, [facility], Partial fill upon patient request if the prescription is for a schedul... Start Date: 01/10/24 Stop Date: 04/09/24 Status: Ordered ascorbic acid 250 mg oral tablet, chewable 1 tablet = 250 mg, Chew, Daily, # 90 tablet, 2 Refills, Maintenance, 11/22/23 14:18:00 EST, Chew Tablet, [facility], Partial fill upon patient request if [...] 04/09/24 11:00:00 EDT, 01/10/24 11:00:00 EDT, Cream, [facility], Partial eli... Start Date: 01/10/24 Stop Date: 04/09/24 Status: Ordered carvedilol 25 mg oral tablet 1, tablet, By Mouth, 2 times a day, # 180 tablet, Refills 0, Tot. Refills 0, Maintenance, 12/28/23 9:56:00 EDT, Route to Pharmacy Electronically, [facility], 164, cm, 12/28/23 9:39:00 EDT, Height, [...] Gm, 0 Refills, Maintenance, 02/08/24 15:02:00 EDT, [facility], 25, APPLY TOPICALLY 4 TIMES A [...] mL, 0 Refills, Maintenance, 10/13/22 14:15:00 EST, [facility], Partial fill upon patient request if the prescription is for a sched... Start Date: 10/13/22 Status: Ordered ferrous sulfate 325 mg oral enteric coated tablet 325 mg, 1, tablet, By Mouth, Every other day, Iron supplement. Take once a day with food., # 90 tablet, Refills 1, Tot. Refills 1, Maintenance, 11/30/22 13:37:00 EDT, Route to Pharmacy Electronically, [facility], 163, cm, 11/24/22 7:42:00 E... Start [...] Gm, 0 Refills, Maintenance, 01/10/24 10:57:00 EDT, [place], [facility], Partial fill upon patient request if the prescription is for a schedule II opioid drug., 1 sprays Nares, Both 2 times a day, 164... Start Date: 01/10/24 Status: Ordered Freestyle [place] 3 [place] Freestyle [place] 3 [place], See Instructions, # 1 each, Refills 0, [...] kg, 08/31/23... Start Date: 10/12/23 Status: Ordered grabber/fence laborer tool grabber/fence laborer tool, See Instructions, # 1 each, Refills 0, Tot. Refills 0, Maintenance, Dx: - Severe OA of knee M17. 9 - Fibromyalgia M79. 7 - Obesity E66 DME: Grabber/fence laborer tool Duration: 99 Dispense: 1 each, 04/26/23 9:20:00 EDT, [place]... Start Date: 04/26/23 Status: Ordered hydrochlorothiazide 25 mg oral tablet 1, tablet, By Mouth, Daily, X30 DAYS., # 30 tablet, Refills 3, Maintenance, 11/15/23 12:20:00 EST, Route to Pharmacy Electronically, [facility], 164, cm, 11/01/23 10:12:00 EST, Height, [...] 0 Refills, Maintenance, 09/22/22 12:27:00 EST, Tablet, [facility], Partial eli... Start Date: 09/22/22 Status: Ordered NovoLOG FlexPen 100 units/mL injectable solution = 12 units, Subcutaneous Injection, 3 times a day before meals, # 15 mL, 2 Refills, Maintenance, 09/06/23 9:20:00 EST, [facility], 164, cm, 08/31/23 16:55:00 EST, Height, 134, kg, 08/31/23 16:55:00 EST, Dry Weight Start Date: 09/06/23 Status: Ordered ondansetron 4 mg oral tablet 1 tablet, By Mouth, Every 8 hours, PRN NEEDED FOR NAUSEA/VOMITING, # 40 tablet, 0 Refills, Maintenance, 12/31/23 13:20:00 EDT, [facility], 164, cm, 12/28/23 9:39:00 EDT, Height, 131.1, kg, 12/03/23 9:28:00 EDT, Dry Weight Start Date: 12/31/23 Status: Ordered Ozempic 8 mg/3 mL (2 mg dose) subcutaneous solution = 2 mg, Subcutaneous Injection, Every week, in the abdomen, thigh, or upper arm, # 3 mL, 3 Refills,Maintenance, 01/16/24 12:44:00 EDT, Solution, [facility], To replace Trulicity, 164, cm, 01/10/24 [...] 01/10/24 Stop Date: 10/06/24 Status: Ordered Pen [place], 31 G x 5 mm BD Ultra Fine III See Instructions, # 100 each, Refills 5, Tot. Refills 5, Maintenance, use 4 times per day as directed for Diabetes Mellitus, 06/28/22 14:59:00 EDT, Supply, 163, cm, 06/07/22 10:06:00 EDT, Height, 118.1, kg, 05/29/22 9:57:00 EDT, Dry Weight Start Date: 06/28/22 Stop Date: 12/25/22 Status: Ordered Pen [place], 32 G x 4 mm BD Ultra [...] 5 Refills, Maintenance, 09/06/23 9:20:00 EST, Tablet, [facility], Partial fill upon patient request if [...] 3 Refills, Maintenance, 12/28/23 9:51:00 EDT, Solution, [facility], To replace Lantus, 164, cm, 12/28/23 9:39:00 EDT, Height, 131.1, kg, 12/03/23 9:28:00 EDT, Dry Weight Start Date: 12/28/23 Status: Ordered triamcinolone 0.025% topical cream See Instructions, Apply to affected areas twice per day until symptoms resolve, for no longer than 14 days., # 60 Gm, 0 Refills, Maintenance, 10/13/22 14:15:00 EST, [facility], Partial fillupon patient request if the [...] 11/11/20 Active Osteoarthritis of knee Confirmed Active N Care Management [facility], Winifred Contreras [phone] Confirmed Active Restless leg syndrome Confirmed Active Severe obesity Confirmed Active Tubular adenoma of colon 2 Confirmed 03/24/19 Active Urinary incontinence Confirmed Active Uterine fibroid Confirmed Active 1Right thyroid lobectomy in 2009 for benign nodule. [facility] Social History Social History Type Response Smoking Status Never smoker entered on: 08/03/17 Sex Patient Care team information Care Team Personnel Name: Gila Robins MD Position: [facility] Resident Member Role: PCP Address: Address: [address] [place] [address]- [place] Name: Dilcia Lawrence RN Position: S RN Member Role: Primary Care Nurse Name: Molly Esteban RN Position: S RN Member Role: Primary Care Nurse Name: Anh Bardales RN Position: S RN Member Role: Primary Care Nurse Name: Jody Solano RN Position: S RN Member Role: Primary Care Nurse Care Team Related Persons Name: ENEDINA SINGH Address: [address] [place] [address] Name: DAT SINGH Address: [address] [place] [address] Name: TYLER DUNLAP Address: home [address] [place] [id number]
--- OUTSIDE RECORDS SUMMARY | 2024-03-14 09:23 | XMS_ITS | Continuity of Care Document ---
Author Organization [facility] Address [address] [place] [address]- Care Team Providers Care Court Deputy Name Role Phone Julienne SANDERSON, Gila Boston Primary Care Physician [phone] Encounter [facility] Date(s): 01/14/24 - 02/13/[address] [address]- Allergies, Adverse Reactions, Alerts Substance Reaction Severity [...] influenza virus vaccine, inactivated 06/17/17 Darrel rded [id number] 12y+ bivalent booster vax 07/06/22 Given SARS-CoV-2 [...] 03/10/24 11:03:00 EDT, 01/10/24 11:03:00 EDT, Tablet, [facility], Partial fill upon patient request if the prescription is for a sched... Start Date: 01/10/24 Stop Date: 03/10/24 Status: Ordered Aerochamber See Instructions, # 1 units, Maintenance, Use with inhalers, 01/08/18 13:17:00 EDT, Compound Start Date: 01/08/18 Status: Ordered Albuterol (Eqv-ProAir HFA) 90 mcg/inh inhalation aerosol 1 puffs, Inhalation, Every 6 hours, # 54 Gm, 5 Refills, Maintenance, 09/22/22 12:27:00 EST, [facility], Partial fill upon patient request if the prescription is for a schedule II opioid drug., 1 puffs Inhalation Every 6 hours, 163, cm, 08/28... Start Date: 09/22/22 Status: Ordered albuterol CFC free 90 mcg/inh inhalation aerosol 1, puffs, Inhalation, 4 times a day, PRN, # 25 Gm, Refills 0, Tot. Refills 0, Maintenance, 08/01/2311:27:00 EST, Aerosol, Route to Pharmacy Electronically, NCPDP_[id number], [facility], 163, cm, 08/01/23 11:12:00 EST, Height, [...] 0 Refills, Maintenance, 01/10/24 10:59:00 EDT, Tablet, [facility], Partial fill upon patient request if the prescription is for a schedul... Start Date: 01/10/24 Stop Date: 04/09/24 Status: Ordered ascorbic acid 250 mg oral tablet, chewable 1 tablet = 250 mg, Chew, Daily, # 90 tablet, 2 Refills, Maintenance, 11/22/23 14:18:00 EST, Chew Tablet, [facility], Partial fill upon patient request if [...] 04/09/24 11:00:00 EDT, 01/10/24 11:00:00 EDT, Cream, [facility], Partial eli... Start Date: 01/10/24 Stop Date: 04/09/24 Status: Ordered carvedilol 25 mg oral tablet 1, tablet, By Mouth, 2 times a day, # 180 tablet, Refills 0, Tot. Refills 0, Maintenance, 12/28/23 9:56:00 EDT, Route to Pharmacy Electronically, [facility], 164, cm, 12/28/23 9:39:00 EDT, Height, [...] Gm, 0 Refills, Maintenance, 02/08/24 15:02:00 EDT, [facility], 25, APPLY TOPICALLY 4 TIMES A [...] mL, 0 Refills, Maintenance, 10/13/22 14:15:00 EST, [facility], Partial fill upon patient request if the prescription is for a sched... Start Date: 10/13/22 Status: Ordered ferrous sulfate 325 mg oral enteric coated tablet 325 mg, 1, tablet, By Mouth, Every other day, Iron supplement. Take once a day with food., # 90 tablet, Refills 1, Tot. Refills 1, Maintenance, 11/30/22 13:37:00 EDT, Route to Pharmacy Electronically, [facility], 163, cm, 11/24/22 7:42:00 E... Start [...] Gm, 0 Refills, Maintenance, 01/10/24 10:57:00 EDT, [place], [facility], Partial fill upon patient request if the prescription is for a schedule II opioid drug., 1 sprays Nares, Both 2 times a day, 164... Start Date: 01/10/24 Status: Ordered Freestyle Lynsey 3 [place] Freestyle Lynsey 3 [place], See Instructions, # 1 each, Refills 0, [...] kg, 08/31/23... Start Date: 10/12/23 Status: Ordered grabber/director transportation tool grabber/director transportation tool, See Instructions, # 1 each, Refills 0, Tot. Refills 0, Maintenance, Dx: - Severe OA of knee M17. 9 - Fibromyalgia M79. 7 - Obesity E66 DME: Grabber/director transportation tool Duration: 99 Dispense: 1 each, 04/26/23 9:20:00 EDT, [place]... Start Date: 04/26/23 Status: Ordered hydrochlorothiazide 25 mg oral tablet 1, tablet, By Mouth, Daily, X30 DAYS., # 30 tablet, Refills 3, Maintenance, 11/15/23 12:20:00 EST, Route to Pharmacy Electronically, [facility], 164, cm, 11/01/23 10:12:00 EST, Height, [...] 0 Refills, Maintenance, 09/22/22 12:27:00 EST, Tablet, [facility], Partial eli... Start Date: 09/22/22 Status: Ordered NovoLOG FlexPen 100 units/mL injectable solution = 12 units, Subcutaneous Injection, 3 times a day before meals, # 15 mL, 2 Refills, Maintenance, 09/06/23 9:20:00 EST, [facility], 164, cm, 08/31/23 16:55:00 EST, Height, 134, kg, 08/31/23 16:55:00 EST, Dry Weight Start Date: 09/06/23 Status: Ordered ondansetron 4 mg oral tablet 1 tablet, By Mouth, Every 8 hours, PRN NEEDED FOR NAUSEA/VOMITING, # 40 tablet, 0 Refills, Maintenance, 12/31/23 13:20:00 EDT, [facility], 164, cm, 12/28/23 9:39:00 EDT, Height, 131.1, kg, 12/03/23 9:28:00 EDT, Dry Weight Start Date: 12/31/23 Status: Ordered Ozempic 8 mg/3 mL (2 mg dose) subcutaneous solution = 2 mg, Subcutaneous Injection, Every week, in the abdomen, thigh, or upper arm, # 3 mL, 3 Refills,Maintenance, 01/16/24 12:44:00 EDT, Solution, [facility], To replace Trulicity, 164, cm, 01/10/24 [...] 01/10/24 Stop Date: 10/06/24 Status: Ordered Pen [place], 31 G x 5 mm BD Ultra Fine III See Instructions, # 100 each, Refills 5, Tot. Refills 5, Maintenance, use 4 times per day as directed for Diabetes Mellitus, 06/28/22 14:59:00 EDT, Supply, 163, cm, 06/07/22 10:06:00 EDT, Height, 118.1, kg, 05/29/22 9:57:00 EDT, Dry Weight Start Date: 06/28/22 Stop Date: 12/25/22 Status: Ordered Pen [place], 32 G x 4 mm BD Ultra [...] 5 Refills, Maintenance, 09/06/23 9:20:00 EST, Tablet, [facility], Partial fill upon patient request if [...] 3 Refills, Maintenance, 12/28/23 9:51:00 EDT, Solution, [facility], To replace Lantus, 164, cm, 12/28/23 9:39:00 EDT, Height, 131.1, kg, 12/03/23 9:28:00 EDT, Dry Weight Start Date: 12/28/23 Status: Ordered triamcinolone 0.025% topical cream See Instructions, Apply to affected areas twice per day until symptoms resolve, for no longer than 14 days., # 60 Gm, 0 Refills, Maintenance, 10/13/22 14:15:00 EST, [facility], Partial fillupon patient request if the [...] of knee Confirmed Active N Care Management [facility], Winifred Contreras [phone] Confirmed Active Restless leg syndrome Confirmed Active [...] Team Personnel Name: Gila Robins MD Position: [facility] Resident Member Role: PCP Address: Address: [address] [place], [place] [address], [place] [address]- Name: Dilcia Lawrence RN Position: S RN Member Role: Primary Care Nurse Name: Molly Esteban RN Position: S RN Member Role: Primary Care Nurse Name: Anh Bardales RN Position: S RN Member Role: Primary Care Nurse Name: Jody Solano RN Position: S RN Member Role: Primary Care Nurse Care Team Related Persons Name: ENEDINA SINGH Address: [address] [place] [address] Name: DAT SINGH Address: [address] [place] [address] Name: TYLER DUNLAP Address: home [address] [place] [id number]
--- OUTSIDE RECORDS SUMMARY | 2024-03-14 09:25 | XMS_ITS | Patient Health Record ---
Author Organization [facility] Address [address] [place] [id number] Care Team Providers Care Rate And Cost Analyst Name Role Phone Gila Robins Primary Care Provider Unavailab Javier Landeros Unavailable [phone] RIANA AYALA Unavailable Unavailable ALLERGIES Allergen (clinical drug ingredient) Drug/Non Drug Allergy documented on EMR Reaction Allergy Type Onset Date Status nifedipine NIFEdipine Unknown Drug Allergy Activ e diphenhydramine Benadryl Unknown Drug Allergy A ctive angiotensin-converting enzyme inhibitor (FN) Jarret Inhibitors (uncoded) Unknown Allergy Active IVP dye (uncoded) Unknown Allergy Ac tive Robitussin Cold/Congestion Unknown Drug Allergy Active REASON FOR REFERRAL No Information MEDICATIONS Medication SIG (Take, Route, Frequency, Duration) Notes Start Date End Date Status Omeprazole 20 MG 2 capsules Orally On ce a day Not-Taking Pramipexole Dihydrochloride 0.125 MG 1 tablet Orally Once a day Active Rosuvastatin Calcium 20 MG 1 tablet Oral ly Once a day Active Vitamin D (Cholecalciferol) 1000 UNIT 1 capsule Orally Once a day for 30 day(s) Active Meclizine HCl 12.5 MG 1 tablet as needed Orally Once a day Active Cetirizine HCl 10 MG 1 tablet Orally Onc e a day for 30 day(s) Active amLODIPine Besylate 10 MG 1 tablet Orall y Once a day for 30 day(s) Active Carvedilol 6.25 MG 2 tablets Orally onc e a day Active metFORMIN HCl 1000 MG 1 tablet with a me al Orally twice a day Active Januvia 50 MG as directed Orally Once a day Active Lantus SoloStar 100 UNIT/ML 23 Subcutaneous qpm Active buPROPion HCl ER (SR) 150 MG 1 tablet in the morning Orally Once a day for 30 day(s) Active Tylenol PRN Active Ondansetron HCl 4 MG TAKE 1 TO 2 TABLETS BY MOUTH EVERY 6 HOURS NEEDED FOR NAUSEA for 5 Active IMMUNIZATIONS Vaccine Route Administration Date Status Comme nts Influenza Unknown 05/18/2018 Administered Influenza Unknown 08/17/2019 Administered Influenza Unknown 05/26/2020 Administered SOCIAL HISTORY Sex Assigned At : Social History Observation Description Sex Assigned At Unknown PROBLEMS Problem Type ICD Code Onset Dates Problem Status W/U Status Risk SNOMED Code Notes Problem Epigastric abdominal pain (R10.13) Active confirmed 28553129 Problem Encounter for screening for malignant neoplasm of colon (Z12.11) Active confirmed 293160572 Problem History of adenomatous polyp of colon (Z86.010) Active confirmed 587699503 Problem Abdominal bloating (R14.0) Active confirmed 603446066 Problem Nausea (R11.0) Active confirmed 2880047 07 Problem Gastroesophageal reflux disease without esophagitis (K21.9) Active confirmed 271952282 Problem Gastroenteritis (K52.9) Active confirmed 30173709 Problem Diarrhea, unspecified type (R19.7) Active confirmed 48559496 PLAN OF TREATMENT Pending Test Test Name Order Date LIVER PROFILE 10/30/2019 AMYLASE 10/30/2019 LIPASE 10/30/2019 CBC w DIFF 10/30/2019 Future Test Test Name Order Date UPPER GI ENDOSCOPY 11/05/2012 COLONOSCOPY 11/05/2012 COLONOSCOPY 12/06/2018 UPPER GI ENDOSCOPY 10/30/2019 UPPER GI ENDOSCOPY 04/21/2020 Insurance Providers Payer Name Payer Address Payer Phone Subscriber Number Group Number Insured Name Patient Relationship to Insured Coverage Start Date Coverage End Date [facility] [address] [place] [phone] [id number] NANCI SINGH Self - patient is the insured MEDICAL (GENERAL) HISTORY Medical History History ICD Code IDDM Hypertension Hyperlipidemia Arthritis Irregular menses-followed by COMPUTATIONAL PHYSICIST at [facility] Depression Denies ND,CVA,Lung disease,renal disease NIDDM Admitted to [facility] in early 2012 for an acute colitis-segmental area near the splenic flexure-? ischemic, ? infectious Urinary incontinence Colonoscopy in 08/2013-3 tub ular adenomas removed, diverticulosis, internal hemorrhoids EGD in 08/2013-WNL Sleep apnea--uses a CPAP Colonoscopy in 03/2019 with 2 small tubular adenomas and 1 tubulovillous adenoma removed EGD in 04/2020--small to mode rate sized hiatal hernia; no evidence of ulcer disease, significant gastritis, esophagitis, nor Fuller's esophagus; biopsies from the upper GI tract were negative for celiac disease and Giardia, negative for H. pylori, and negative for Fuller's esophagus Normal nuclear medicine gastric emptying study in 05/2020 Nausea with the above negati ve workup--no response to PPIs and only partial relief with Zofran. She was seen at [facility] for a 2nd opinion but reports no new recommendations. Surgical History Surgery Date(Month/Year) Parathyroidectomy Thumb surgery-pins [facility]-uterine cancer 10/2017
--- OUTSIDE RECORDS SUMMARY | 2024-03-14 09:25 | XMS_ITS | Continuity of Care Document ---
Author Organization [facility] Address [address] [place] [address]- Care Team Providers Care Judge Clerk Name Role Phone Julienne SANDERSON, Gila Boston Primary Care Physician Encounter [facility] Date(s): 01/22/24 - 02/21/[address] [address]- Allergies, Adverse Reactions, Alerts Substance Reaction Severity [...] influenza virus vaccine, inactivated 06/17/17 Darrel rded [id number] 12y+ bivalent booster vax 07/06/22 Given SARS-CoV-2 [...] 03/10/24 11:03:00 EDT, 01/10/24 11:03:00 EDT, Tablet, [facility], Partial fill upon patient request if the prescription is for a sched... Start Date: 01/10/24 Stop Date: 03/10/24 Status: Ordered Aerochamber See Instructions, # 1 units, Maintenance, Use with inhalers, 01/08/18 13:17:00 EDT, Compound Start Date: 01/08/18 Status: Ordered Albuterol (Eqv-ProAir HFA) 90 mcg/inh inhalation aerosol 1 puffs, Inhalation, Every 6 hours, # 54 Gm, 5 Refills, Maintenance, 09/22/22 12:27:00 EST, [facility], Partial fill upon patient request if the prescription is for a schedule II opioid drug., 1 puffs Inhalation Every 6 hours, 163, cm, 08/28... Start Date: 09/22/22 Status: Ordered albuterol CFC free 90 mcg/inh inhalation aerosol 1, puffs, Inhalation, 4 times a day, PRN, # 25 Gm, Refills 0, Tot. Refills 0, Maintenance, 08/01/2311:27:00 EST, Aerosol, Route to Pharmacy Electronically, [id number]_[id number], [facility], 163, cm, 08/01/23 11:12:00 EST, Height, [...] 0 Refills, Maintenance, 01/10/24 10:59:00 EDT, Tablet, [facility], Partial fill upon patient request if the prescription is for a schedul... Start Date: 01/10/24 Stop Date: 04/09/24 Status: Ordered ascorbic acid 250 mg oral tablet, chewable 1 tablet = 250 mg, Chew, Daily, # 90 tablet, 2 Refills, Maintenance, 11/22/23 14:18:00 EST, Chew Tablet, [facility], Partial fill upon patient request if [...] 04/09/24 11:00:00 EDT, 01/10/24 11:00:00 EDT, Cream, [facility], Partial eli... Start Date: 01/10/24 Stop Date: 04/09/24 Status: Ordered carvedilol 25 mg oral tablet 1, tablet, By Mouth, 2 times a day, # 180 tablet, Refills 0, Tot. Refills 0, Maintenance, 12/28/23 9:56:00 EDT, Route to Pharmacy Electronically, [facility], 164, cm, 12/28/23 9:39:00 EDT, Height, [...] Gm, 0 Refills, Maintenance, 02/08/24 15:02:00 EDT, [facility], 25, APPLY TOPICALLY 4 TIMES A [...] mL, 0 Refills, Maintenance, 10/13/22 14:15:00 EST, [facility], Partial fill upon patient request if the prescription is for a sched... Start Date: 10/13/22 Status: Ordered ferrous sulfate 325 mg oral enteric coated tablet 325 mg, 1, tablet, By Mouth, Every other day, Iron supplement. Take once a day with food., # 90 tablet, Refills 1, Tot. Refills 1, Maintenance, 11/30/22 13:37:00 EDT, Route to Pharmacy Electronically, [facility], 163, cm, 11/24/22 7:42:00 E... Start [...] Gm, 0 Refills, Maintenance, 01/10/24 10:57:00 EDT, [place], [facility], Partial fill upon patient request if the prescription is for a schedule II opioid drug., 1 sprays Nares, Both 2 times a day, 164... Start Date: 01/10/24 Status: Ordered Freestyle [place] 3 [place] Freestyle Lynsey 3 [place], See Instructions, # 1 each, Refills 0, [...] kg, 08/31/23... Start Date: 10/12/23 Status: Ordered grabber/cash posting clerk tool grabber/cash posting clerk tool, See Instructions, # 1 each, Refills 0, Tot. Refills 0, Maintenance, Dx: - Severe OA of knee M17. 9 - Fibromyalgia M79. 7 - Obesity E66 DME: Grabber/cash posting clerk tool Duration: 99 Dispense: 1 each, 04/26/23 9:20:00 EDT, [facility]... Start Date: 04/26/23 Status: Ordered hydrochlorothiazide 25 mg oral tablet 1, tablet, By Mouth, Daily, X30 DAYS., # 30 tablet, Refills 3, Maintenance, 11/15/23 12:20:00 EST, Route to Pharmacy Electronically, [facility], 164, cm, 11/01/23 10:12:00 EST, Height, [...] 0 Refills, Maintenance, 09/22/22 12:27:00 EST, Tablet, [facility], Partial eli... Start Date: 09/22/22 Status: Ordered NovoLOG FlexPen 100 units/mL injectable solution = 12 units, Subcutaneous Injection, 3 times a day before meals, # 15 mL, 2 Refills, Maintenance, 09/06/23 9:20:00 EST, [facility], 164, cm, 08/31/23 16:55:00 EST, Height, 134, kg, 08/31/23 16:55:00 EST, Dry Weight Start Date: 09/06/23 Status: Ordered ondansetron 4 mg oral tablet 1 tablet, By Mouth, Every 8 hours, PRN NEEDED FOR NAUSEA/VOMITING, # 40 tablet, 0 Refills, Maintenance, 12/31/23 13:20:00 EDT, [facility], 164, cm, 12/28/23 9:39:00 EDT, Height, 131.1, kg, 12/03/23 9:28:00 EDT, Dry Weight Start Date: 12/31/23 Status: Ordered Ozempic 8 mg/3 mL (2 mg dose) subcutaneous solution = 2 mg, Subcutaneous Injection, Every week, in the abdomen, thigh, or upper arm, # 3 mL, 3 Refills,Maintenance, 01/16/24 12:44:00 EDT, Solution, [facility], To replace Trulicity, 164, cm, 01/10/24 [...] 01/10/24 Stop Date: 10/06/24 Status: Ordered Pen [place], 31 G x 5 mm BD Ultra Fine III See Instructions, # 100 each, Refills 5, Tot. Refills 5, Maintenance, use 4 times per day as directed for Diabetes Mellitus, 06/28/22 14:59:00 EDT, Supply, 163, cm, 06/07/22 10:06:00 EDT, Height, 118.1, kg, 05/29/22 9:57:00 EDT, Dry Weight Start Date: 06/28/22 Stop Date: 12/25/22 Status: Ordered Pen [place], 32 G x 4 mm BD Ultra [...] 5 Refills, Maintenance, 09/06/23 9:20:00 EST, Tablet, [facility], Partial fill upon patient request if [...] 3 Refills, Maintenance, 12/28/23 9:51:00 EDT, Solution, [facility], To replace Lantus, 164, cm, 12/28/23 9:39:00 EDT, Height, 131.1, kg, 12/03/23 9:28:00 EDT, Dry Weight Start Date: 12/28/23 Status: Ordered triamcinolone 0.025% topical cream See Instructions, Apply to affected areas twice per day until symptoms resolve, for no longer than 14 days., # 60 Gm, 0 Refills, Maintenance, 10/13/22 14:15:00 EST, [facility], Partial fillupon patient request if the [...] of knee Confirmed Active N Care Management [facility], Winifred Contreras [phone] Confirmed Active Restless leg syndrome Confirmed Active Severe obesity Confirmed Active Tubular adenoma of colon 2 Confirmed 03/24/19 Active Urinary incontinence Confirmed Active Uterine fibroid Confirmed Active 1Right thyroid lobectomy in 2009 for benign nodule. [facility] Social History Social History Type Response Smoking Status Never smoker entered on: 08/03/17 Sex Patient Care team information Care Team Personnel Name: Gila Robins MD Position: [facility] Resident Member Role: PCP Address: Address: [address] [place] [address] [place], [place] [address] Name: Dilcia Lawrence RN Position: S RN Member Role: Primary Care Nurse Name: Molly Esteban RN Position: S RN Member Role: Primary Care Nurse Name: Anh Bardales RN Position: S RN Member Role: Primary Care Nurse Name: Jody Solano RN Position: S RN Member Role: Primary Care Nurse Care Team Related Persons Name: ENEDINA SINGH Address: [address] [address] Name: DAT SINGH Address: home [address] [place] [id number] Name: TYLER DUNLAP Address: [address] [address]
--- OUTSIDE RECORDS SUMMARY | 2024-03-14 09:25 | XMS_ITS | Continuity of Care Document ---
Author Organization [facility] Address [address] [place] [address]- Care Team Providers Care Tar Distributor Operator Name Role Phone Julienne SANDERSON, Gila Boston Primary Care Physician [phone] [place] [facility] [place] 02/07/24 - 03/08/[address] [address]- Allergies, Adverse Reactions, Alerts Substance Reaction Severity [...] influenza virus vaccine, inactivated 06/17/17 Darrel rded [id number] 12y+ bivalent booster vax 07/06/22 Given SARS-CoV-2 [...] 03/10/24 11:03:00 EDT, 01/10/24 11:03:00 EDT, Tablet, [facility], Partial fill upon patient request if the prescription is for a sched... Start Date: 01/10/24 Stop Date: 03/10/24 Status: Ordered Aerochamber See Instructions, # 1 units, Maintenance, Use with inhalers, 01/08/18 13:17:00 EDT, Compound Start Date: 01/08/18 Status: Ordered Albuterol (Eqv-ProAir HFA) 90 mcg/inh inhalation aerosol 1 puffs, Inhalation, Every 6 hours, # 54 Gm, 5 Refills, Maintenance, 09/22/22 12:27:00 EST, [facility], Partial fill upon patient request if the prescription is for a schedule II opioid drug., 1 puffs Inhalation Every 6 hours, 163, cm, 08/28... Start Date: 09/22/22 Status: Ordered albuterol CFC free 90 mcg/inh inhalation aerosol 1, puffs, Inhalation, 4 times a day, PRN, # 25 Gm, Refills 0, Tot. Refills 0, Maintenance, 08/01/2311:27:00 EST, Aerosol, Route to Pharmacy Electronically, NCPDP_[id number], [facility], 163, cm, 08/01/23 11:12:00 EST, Height, [...] 0 Refills, Maintenance, 01/10/24 10:59:00 EDT, Tablet, [facility], Partial fill upon patient request if the prescription is for a schedul... Start Date: 01/10/24 Stop Date: 04/09/24 Status: Ordered ascorbic acid 250 mg oral tablet, chewable 1 tablet = 250 mg, Chew, Daily, # 90 tablet, 2 Refills, Maintenance, 11/22/23 14:18:00 EST, Chew Tablet, [facility], Partial fill upon patient request if [...] 04/09/24 11:00:00 EDT, 01/10/24 11:00:00 EDT, Cream, [facility], Partial eli... Start Date: 01/10/24 Stop Date: 04/09/24 Status: Ordered carvedilol 25 mg oral tablet 1, tablet, By Mouth, 2 times a day, # 180 tablet, Refills 0, Tot. Refills 0, Maintenance, 12/28/23 9:56:00 EDT, Route to Pharmacy Electronically, [facility], 164, cm, 12/28/23 9:39:00 EDT, Height, [...] Gm, 0 Refills, Maintenance, 02/08/24 15:02:00 EDT, [facility], 25, APPLY TOPICALLY 4 TIMES A [...] mL, 0 Refills, Maintenance, 10/13/22 14:15:00 EST, [facility], Partial fill upon patient request if the prescription is for a sched... Start Date: 10/13/22 Status: Ordered ferrous sulfate 325 mg oral enteric coated tablet 325 mg, 1, tablet, By Mouth, Every other day, Iron supplement. Take once a day with food., # 90 tablet, Refills 1, Tot. Refills 1, Maintenance, 11/30/22 13:37:00 EDT, Route to Pharmacy Electronically, [facility], 163, cm, 11/24/22 7:42:00 E... Start [...] Gm, 0 Refills, Maintenance, 01/10/24 10:57:00 EDT, [place], [facility], Partial fill upon patient request if the prescription is for a schedule II opioid drug., 1 sprays Nares, Both 2 times a day, 164... Start Date: 01/10/24 Status: Ordered Freestyle Lynsey 3 [place] Freestyle [place]sey 3 [place], See Instructions, # 1 each, Refills 0, [...] kg, 08/31/23... Start Date: 10/12/23 Status: Ordered grabber/sofa cover inspector tool grabber/sofa cover inspector tool, See Instructions, # 1 each, Refills 0, Tot. Refills 0, Maintenance, Dx: - Severe OA of knee M17. 9 - Fibromyalgia M79. 7 - Obesity E66 DME: Grabber/sofa cover inspector tool Duration: 99 Dispense: 1 each, 04/26/23 9:20:00 EDT, [facility]... Start Date: 04/26/23 Status: Ordered hydrochlorothiazide 25 mg oral tablet 1, tablet, By Mouth, Daily, X30 DAYS., # 30 tablet, Refills 3, Maintenance, 11/15/23 12:20:00 EST, Route to Pharmacy Electronically, [facility], 164, cm, 11/01/23 10:12:00 EST, Height, [...] 0 Refills, Maintenance, 09/22/22 12:27:00 EST, Tablet, [facility], Partial eli... Start Date: 09/22/22 Status: Ordered NovoLOG FlexPen 100 units/mL injectable solution = 12 units, Subcutaneous Injection, 3 times a day before meals, # 15 mL, 2 Refills, Maintenance, 09/06/23 9:20:00 EST, [facility], 164, cm, 08/31/23 16:55:00 EST, Height, 134, kg, 08/31/23 16:55:00 EST, Dry Weight Start Date: 09/06/23 Status: Ordered ondansetron 4 mg oral tablet 1 tablet, By Mouth, Every 8 hours, PRN NEEDED FOR NAUSEA/VOMITING, # 40 tablet, 0 Refills, Maintenance, 12/31/23 13:20:00 EDT, [facility], 164, cm, 12/28/23 9:39:00 EDT, Height, 131.1, kg, 12/03/23 9:28:00 EDT, Dry Weight Start Date: 12/31/23 Status: Ordered Ozempic 8 mg/3 mL (2 mg dose) subcutaneous solution = 2 mg, Subcutaneous Injection, Every week, in the abdomen, thigh, or upper arm, # 3 mL, 3 Refills,Maintenance, 01/16/24 12:44:00 EDT, Solution, [facility], To replace Trulicity, 164, cm, 01/10/24 [...] Date: 01/10/24 Stop Date: 10/06/24 Status: Ordered pantoprazole 20 mg oral delayed release tablet 1 tablet, By Mouth, Daily, for 90 days, # 90 tablet, 2 Refills, Physician Stop 07/03/25 11:02:00 EDT, 10/06/24 11:02:00 EST, 164, cm, 02/25/24 9:59:00 EDT, Height, 131.1, kg, 12/03/23 9:28:00 EDT, Dry Weight Start Date: 10/06/24 Stop Date: 07/03/25 Status: Ordered Pen [place], 31 G x 5 mm BD Ultra Fine III See Instructions, # 100 each, Refills 5, Tot. Refills 5, Maintenance, use 4 times per day as directed for Diabetes Mellitus, 06/28/22 14:59:00 EDT, Supply, 163, cm, 06/07/22 10:06:00 EDT, Height, 118.1, kg, 05/29/22 9:57:00 EDT, Dry Weight Start Date: 06/28/22 Stop Date: 12/25/22 Status: Ordered Pen [place], 32 G x 4 mm BD Ultra Fine III See instructions, # 200 each, Refills 11, Tot. Refills 11, Maintenance, Use to inject insulin 5 times per day., 10/12/23 10:55:00 EST, Supply, 164, cm, 10/12/23 9:52:00 EST, Height, 134, kg, 08/31/2316:55:00 EST, Dry Weight Start Date: 10/12/23 Stop Date: 09/26/26 Status: Ordered rosuvastatin 10 mg oral tablet See Instructions, TAKE 1 TABLET BY MOUTH DAILY,X30 DAYS, # 30 tablet, 5 Refills, Maintenance, 02/26/24 11:40:00 EDT, [facility], 164, cm, 02/25/24 9:59:00 EDT, Height, 131.1, kg, 12/03/23 9:28:00 EDT, Dry Weight Start Date: 02/26/24 Status: Ordered Shower chair Shower chair, See Instructions, # 1 Unknown, Refills 0, Tot. Refills 0, Maintenance, Mobility impairment. Z74. 09, 10/21/21 9:31:00 EST, Supply Start Date: 10/21/21 Status: Ordered Tresiba FlexTouch 200 units/mL subcutaneous solution = 48 units, Subcutaneous Injection, Daily, rotate injection sites, # 9 mL, 3 Refills, Maintenance, 12/28/23 9:51:00 EDT, Solution, [facility], To replace Lantus, 164, cm, 12/28/23 9:39:00 EDT, Height, 131.1, kg, 12/03/23 9:28:00 EDT, Dry Weight Start Date: 12/28/23 Status: Ordered triamcinolone 0.025% topical cream See Instructions, Apply to affected areas twice per day until symptoms resolve, for no longer than 14 days., # 60 Gm, 0 Refills, Maintenance, 10/13/22 14:15:00 EST, [facility], Partial fillupon patient request if the [...] of knee Confirmed Active [facility] Care Management [facility] Winifred Cleary [phone] Confirmed Active Restless leg syndrome Confirmed Active Severe obesity Confirmed Active Tubular adenoma of colon 2 Confirmed 03/24/19 Active Urinary incontinence Confirmed Active Uterine fibroid Confirmed Active 1Right thyroid lobectomy in 2009 for benign nodule. [facility] Social History Social History Type Response Smoking Status Never smoker entered on: 08/03/17 Sex Patient Care team information Care Team Personnel Name: Gila Robins MD Position: [facility] Resident Member Role: PCP Address: Address: [address] [place] [id number] Name: Dilcia Lawrence RN Position: S RN Member Role: Primary Care Nurse Name: Molly Esteban RN Position: [facility] RN Member Role: Primary Care Nurse Name: Anh Bardales RN Position: [facility] RN Member Role: Primary Care Nurse Name: Jody Solano RN Position: [facility] RN Member Role: Primary Care Nurse Care Team Related Persons Name: ENEDINA SINGH Address: home [address] [place] [id number] Name: DAT SINGH Address: home [address] [place] [address] Name: TYLER DUNLAP Address: home [address] [place] [id number]
--- NOTE | 2024-03-14 12:56 | MHC.OFFVISWM ---
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 Allergies JARRET Inhibitors [Jarret Inhibitors] Allergy (Severe, Verified 03/14/24 12:57) SWELLING guaifenesin [From Robitussin A-C] Allergy (Severe, Verified 03/14/24 12:57) SWELLING Iodinated Contrast Media [IV Dye, Iodine Containing] Allergy (Severe, Verified 03/14/24 12:57) SWELLING nifedipine [NIFEDIPINE] Allergy (Unknown, Verified 03/14/24 12:57) SWELLING pioglitazone Allergy (Unknown, Verified 03/14/24 12:57) Unknown diphenhydramine [From Benadryl] Allergy (Verified 03/14/24 12:57) Unknown Robitussin Chest Congestion Allergy (Unknown, Uncoded 03/14/24 12:57) Unknown Robitussin Cold/Congestion Allergy (Unknown, Uncoded 03/14/24 12:57) Unknown Medication List - Last Reconciled 03/14/24 by Dallin Souza MD acetaminophen (Tylenol) 325 mg PO QID PRN carvedilol 25 mg PO BID cetirizine (All Day Allergy (cetirizine)) 10 mg PO DAILY PRN cholecalciferol (vitamin D3) (Vitamin D3) 25 mcg PO DAILY famotidine 20 mg PO DAILY hydrochlorothiazide 12.5 mg PO DAILY insulin aspart U-100 (Novolog FlexPen U-100 Insulin aspart) 12 units subcut TID insulin glargine U-300 conc (Toujeo Max U-300 SoloStar) 40 units subcut DAILY ondansetron HCl 4 mg PO Q8H PRN pantoprazole 20 mg PO DAILY rosuvastatin 20 mg PO BEDTIME semaglutide (Ozempic) 2 mg subcut QWEEK sennosides (Natural Senna Laxative) 17.2 mg (2 x 8.6 mg) PO BEDTIME HPI HPI 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: Details: Start time: 12.50pm, End time: 1.27pm ?I spent 32 minutes speaking with the patient on the phone plus an additional 5 minutes reviewing and updating records for a total of 37 minutes HPI Comments Details: Previous weight loss efforts: exercise, self diets Wakes up: 7am, Sleeps: 10pm Breakfast: skips Lunch: 11am-12pm (eggs with toast) Dinner: 6pm (rice, pasta, cereal) Fluids: coffee (1 cup/day with sugar and creamer) PFSH Medical History (Updated 03/14/24 @ 13:12 by Dallin Souza MD) Depression DJD (degenerative joint disease) Obstructive sleep apnea on CPAP Hyperlipidemia Insulin dependent type 2 diabetes mellitus Morbid obesity Endometrial cancer Fibromyalgia Hypertension Diabetes Surgical History (Updated 01/16/24 @ 08:59 by JAY Egan) Hx of colonoscopy Hx of section S/P total abdominal hysterectomy and bilateral salpingo-oophorectomy Family History Mother Diabetes HTN (hypertension) Sister Diabetes Father Stroke HTN (hypertension) Social History Household Members: None Housing: Apartment Alcohol intake: current Alcohol intake frequency: holidays/special occasions only Patient Tobacco Use Status: Never used Tobacco Current occupational status: retired Sexual orientation: Straight/Heterosexual Gender identity: Female Female Reproductive History Menstrual Age of Menarche: 12 Telehealth Telehealth Telehealth Platform: Telephone Location of provider rendering services: practice address Location of patient: address on file Patient Identification confirmed using: Name, : Yes Telehealth method: voice only Patient verbally consented to treatment: Yes Patient verbally consented to billing insurance company: Yes Patient informed of any privacy concerns related to visit: Yes Minutes spent on Phone/Video with Pt.: 37 Assessment & Plan Assessment & Plan (1) Morbid obesity: Code(s): E66.01 - Morbid (severe) obesity due to excess calories Category: Medical Plan: After I got her history and I pointed out to her that eating rice, pasta, cereal and oatmeals frequently are not compatible with weight loss and certainly appropriate for someone with insulin dependent diabetes and additionally I explained that if she wants to make progress in this program she needs to be willing to cut them down significantly, she told me that she does not want to continue the appointment and that she has other things going on in her life that she cannot make this commitment. I told her to call back when she feels more ready to take this step.
[2024-03-14 13:25] VITALS: BMI 49.5
== END 2024-03-14 13:28 | disposition home or self-care (01) ==
LOC: HO.HBS 09:15
PROVIDERS: Visit Provider Surgery
DX: E66.01 Morbid (severe) obesity due to excess calories (principal); Z68.42 Body mass index [BMI] 45.0-49.9, adult
CPT/HCPCS: 99443

== ENCOUNTER → 2024-03-14 09:15 | Outpatient (BNVA) | payer OTHER, SELFPAY | PROVIDERS: Visit Provider Surgery ==

== ENCOUNTER 2024-03-31 08:42 | Outpatient (AMB) | payer OTHER, SELFPAY ==
--- NOTE | 2024-03-31 09:07 | A.OFFVIS_ITS ---
Vital Signs 03/31/24 09:18 Height 5 ft 4 in Weight 285 lb 11.505 oz BMI 49.0 BP 132/72 Blood Pressure Location Lt brachial Position Sitting Pulse 72 Pulse Source Pulse Oximeter Pulse Oximetry (%) 96 Oxygen Delivery Method Room Air Intake Visit Reasons: f/u gi series Intake Note: Jasmyn presents in office today for a scheduled FUV CC; Jasmyn presents in office to discuss results of recent lab work that she had done. Jasmyn also had senna rx'd at their last visit. Pt reports that they are only taking the senna and famotidine PRN, approximately every other day. Pt reports that they notice it only helps a little bit and they do have some side effects while taking it, including but not limited to; bloating and diarrhea. Farmer General Required: No Allergies JARRET Inhibitors [Jarret Inhibitors] Allergy (Severe, Verified 03/31/24 09:23) SWELLING guaifenesin [From Robitussin A-C] Allergy (Severe, Verified 03/31/24 09:23) SWELLING Iodinated Contrast Media [IV Dye, Iodine Containing] Allergy (Severe, Verified 03/31/24 09:23) SWELLING nifedipine [NIFEDIPINE] Allergy (Unknown, Verified 03/31/24 09:23) SWELLING pioglitazone Allergy (Unknown, Verified 03/31/24 09:23) Unknown diphenhydramine [From Benadryl] Allergy (Verified 03/31/24 09:23) Unknown Robitussin Chest Congestion Allergy (Unknown, Uncoded 03/14/24 12:57) Unknown Robitussin Cold/Congestion Allergy (Unknown, Uncoded 03/14/24 12:57) Unknown HPI HPI f/u gi series: Details: LAST VISIT Encounter for screening colonoscopy Dyspepsia Dysphagia GERD (gastroesophageal reflux disease) Constipation Plan Continue taking pantoprazole daily. Will add famotidine at bedtime. Patient will start taking senna daily. Increase fluid intake and activity to promote better bowel motility. Patient will be sent for upper GI study to check for reflux, hernia patient reports to have dyspepsia with dysphagia frequent feeling of fullness postprandially. Gastric emptying study normal in 2020. Referral to bariatric services. I will see patient in 5-6 weeks to re-evaluate. Patient is agreeable to this plan and verbalizes understanding of instructions. She was given the opportunity to ask questions and all questions answered. ? Thank you for allowing me to participate in her care Orders Orders [place] upper GI small bowel Today K21.9 Referrals Bariatric Surgery Referral E66.01 Medications New sennosides (Natural Senna Laxative) 17.2 mg (2 x 8.6 mg) PO BEDTIME 60 tabs 3RF constipation K59.00 famotidine (Pepcid) 20 mg PO BEDTIME 30 tabs 3RF K21.9 TODAY'S VISIT Patient is here today for follow-up and to discuss upper GI series results. Significant reflux seen as well as inability of contrast to progressed distal ileum. Unsure if is due to a stricture or constipation. Patient states that she was taking Senokot and it was making her feel very gaseous but no bowel movement. Patient still feels constipated. Pepcid was not helping her with acid reflux when she was taking it at night time. She continues to have acid reflux and feeling very bloated postprandially. Feels like pantoprazole is not helping her. Patient reports dyspepsia with occasional dysphagia without odynophagia. Denies any nausea or vomiting. Patient denies any melena, hematochezia, unintentional weight loss or ribbon like stools. Colonoscopy over 10 years ago or so. She is due to go for 1 we will book colonoscopy and upper endoscopy for patient in near future. [facility] Medical History Depression DJD (degenerative joint disease) Obstructive sleep apnea on CPAP Hyperlipidemia Insulin dependent type 2 diabetes mellitus Morbid obesity Endometrial cancer Fibromyalgia Hypertension Diabetes Surgical History Hx of colonoscopy Hx of section S/P total abdominal hysterectomy and bilateral salpingo-oophorectomy Family History Mother Diabetes HTN (hypertension) Sister Diabetes Father Stroke HTN (hypertension) Social History Household Members: None Housing: Apartment Alcohol intake: current Alcohol intake frequency: holidays/special occasions only Patient Tobacco Use Status: Never used Tobacco Current occupational status: retired Sexual orientation: Straight/Heterosexual Gender identity: Female Female Reproductive History Menstrual Age of Menarche: 12 Review of Systems Const Denies weight gain and Denies weight loss ENT Reports no additional complaints, Reports dysphagia (Occasional) and Denies odynophagia Card Reports no additional complaints Resp Reports no additional complaints GI Reports abdominal pain (Epigastric), Denies belching, Denies melena, Reports bloating, Reports constipation, Reports dysphagia (Occasional), Denies excessive flatus, Reports dyspepsia, Reports heartburn, Denies diarrhea, Denies loose stools, Denies nausea, Denies odynophagia and Denies vomiting Reports no additional complaints Musc Reports no additional complaints Neuro Reports no additional complaints Psych Reports no additional complaints Endo Reports no additional complaints Physical Exam Vital Signs: Last Vital Signs Pulse 72 03/31/24 09:18 BP 132/72 03/31/24 09:18 Pulse Ox 96 03/31/24 09:18 Oxygen Delivery Method Room Air 03/31/24 09:18 BMI result Body Mass Index 49.0 Const General: healthy appearing and no acute distress Nutritional Appearance: obese Orientation/consciousness: patient oriented x3 Resp Effort & Inspection: normal respiratory effort, able to speak in complete sentences, no tracheal deviation and symmetric chest movement Auscultation: clear to auscultation bilaterally Cardio Rate: regular rate GI Inspection: Yes normal to inspection, No distended and Yes obesity Palpation (GI): Soft to palpation, not firm, nontender and No hepatosplenomegaly present Auscultation: normal bowel sounds General: Yes no CVA tenderness Back/Spine/Pelvis Back: no CVA tenderness Skin General skin exam: elasticity normal, turgor normal and dry skin Neuro General: patient oriented x3 Psych Appearance: grossly normal Mental Status: mental status grossly normal Results Reviewed Results Reviewed: UPPER GI SERIES IMPRESSION: 1. No laryngeal penetration or aspiration. 2. Mildly disorganized esophageal peristalsis. 3. Small type I hiatal hernia. 4. Moderate gaseous esophageal reflux. 5. Normal-appearing small bowel to the level of the terminal ileum. 6. Failure of contrast to progress beyond the distal ileum in the right lower quadrant, overlying the right iliac bone, after 3 hours. Uncertain etiology of the extended transit time and lack of transit beyond this region. Spot views demonstrated no abnormalities although more posterior loops were obscured. There are no dilated loops of small bowel present. Cannot exclude a nonvisualized stricture or adhesion. This could also be due to the underlying constipation. Recommend correlation with CT enterography to better assess, if felt warranted. Assessment & Plan Assessment & Plan (1) Encounter for screening colonoscopy: Code(s): Z12.11 - Encounter for screening for malignant neoplasm of colon Category: Medical (2) Dyspepsia: Code(s): R10.13 - Epigastric pain (3) Dysphagia: Code(s): R13.10 - Dysphagia, unspecified Qualifiers: Dysphagia type: other dysphagia Qualified Code(s): R13.19 - Other dysphagia (4) GERD (gastroesophageal reflux disease): Code(s): K21.9 - Gastro-esophageal reflux disease without esophagitis Qualifiers: Esophagitis presence: esophagitis presence not specified Qualified Code(s): K21.9 - Gastro-esophageal reflux disease without esophagitis (5) Constipation: Code(s): K59.00 - Constipation, unspecified Qualifiers: Constipation type: slow transit constipation Qualified Code(s): K59.01 - Slow transit constipation Plan CT enterography ordered and scheduled for April. Recommendation was made based on finding on upper GI series. Contrast not passing through distal ileum. Possible stricture, narrowing or due to constipation. Patient will stop senna and start taking Dulcolax. Increase fluid intake and activity to promote better bowel motility. I will see patient in 2 months to discuss prep before going for colonoscopy. Message sent to surgical schedulers to book upper endoscopy and colonoscopy for patient. Patient will stop taking pantoprazole and will start Nexium. Avoid dietary triggers and late night snacking. Staying upright for minimum 3 hours after meals discussed with patient. Patient is agreeable to this plan and verbalizes understanding of instructions. She was given the opportunity to ask questions and all questions answered. Thank you for allowing me to participate in her care Orders: Orders Blood Urea Nitrogen Today R10.11 - Right upper quadrant pain Creatinine Today R10.11 - Right upper quadrant pain Medications: New polyethylene glycol 3350 (Miralax) As directed by gastroenterology department at [facility] 238 grams PO ONCE 238 grams 0RF Z12.11 - Encounter for screening for malignant n eoplasm of colon esomeprazole magnesium (Nexium) 40 mg PO DAILY 30 caps 5RF K21.9 - Gastro- esophageal reflux disease without esophagitis bisacodyl (Dulcolax (bisacodyl)) 10 mg (2 x 5 mg) PO BEDTIME 180 tabs 4RF Discontinued sennosides (Natural Senna Laxative) Discontinued Reason: Doctor's Order 17.2 mg (2 x 8.6 mg) PO BEDTIME 60 tabs 3RF constipation K59.00 - Constipation, unspecified Coding Level of Care Code Est Pt Level 4 (39137) Diagnoses Encounter for screening colonoscopy Z12.11 Dyspepsia R10.13 Other dysphagia R13.19 Dysphagia type: other dysphagia Gastroesophageal reflux disease, unspecified whether esophagitis present K21.9 Esophagitis presence: esophagitis presence not specified Slow transit constipation K59.01 Constipation type: slow transit constipation Time Spent (min) 35 Comment 20 minutes spent with patient and additional 15 minutes spent reviewing her records
[2024-03-31 09:18] VITALS: BP 132/72; PULSE 72; O2SAT 96; BMI 49.0
== END 2024-03-31 10:06 | disposition home or self-care (01) ==
PROVIDERS: Visit Provider Nurse Practitioner Family
DX: R13.19 Other dysphagia (principal); K21.9 Gastro-esophageal reflux disease without esophagitis; K59.01 Slow transit constipation; Z12.11 Encounter for screening for malignant neoplasm of colon
CPT/HCPCS: 99214

== ENCOUNTER → 2024-03-31 08:42 | Outpatient (BNVA) | payer OTHER, SELFPAY | PROVIDERS: Visit Provider Nurse Practitioner Family | DX: Z12.11 Encounter for screening for malignant neoplasm of colon (principal); R10.13 Epigastric pain; R13.19 Other dysphagia; K21.9 Gastro-esophageal reflux disease without esophagitis; K59.01 Slow transit constipation | CPT/HCPCS: 99212 ==

== ENCOUNTER 2024-05-07 07:41 | Outpatient (REF) | payer OTHER, SELFPAY ==
--- NOTE | ~2024-05-07 | CT_ITS ---
EXAMINATION: CT ABDOMEN AND PELVIS WITHOUT IV CONTRAST CLINICAL INFORMATION: Sinus symptoms involving the digestive system COMPARISON: None TECHNIQUE: Multiple axial images were obtained from the superior aspect of the liver through the pubic symphysis without intravenous contrast. Images were evaluated on independent dedicated 3-D workstation and 3-D images were reconstructed with concurrent radiologist supervision and subsequently interpreted. Oral contrast for enterography was given. Intravenous contrast could not be given due to allergy. This CT examination was performed using dose optimization techniques as appropriate, variously including the following: *Automated exposure control *Adjustment of mA and/or kV according to patient size (this includes techniques or standardized protocols for targeted exams where dose is matched to indication/reason for exam; i.e. extremities or head) *Use of iterative reconstruction technique DLP: 2356 mGy-cm FINDINGS: LUNG BASES: The visualized lung bases are clear. CARDIOMEDIASTINUM: The visualized heart is normal in size without pericardial effusion. No coronary artery calcification. LIVER: Homogeneous in attenuation. Enlarged measuring 20 cm in the midclavicular line.. GALLBLADDER: Noninflamed. BILIARY SYSTEM: No intrahepatic or extrahepatic biliary dilation. PANCREAS: Homogeneous in attenuation. SPLEEN: Normal in size. GENITOURINARY: No contour deforming masses. No perinephric fluid collection. Nonobstructing right 2 mm renal calculus. No hydroureteronephrosis. ADRENAL GLANDS: Unremarkable. REPRODUCTIVE: Uterus absent. No solid adnexal masses. GASTROINTESTINAL: The visualized alimentary tract is normal in course. Sigmoid diverticular disease without diverticulitis. No evidence of obstruction. APPENDIX: The appendix is seen in its entirety and is unremarkable. PERITONEUM: No pneumoperitoneum. No intra-abdominal fluid collection. VASCULATURE: No abdominal aortic aneurysm. LYMPH NODES: No pathologically enlarged abdominal or pelvic lymph nodes. SOFT TISSUES/MUSCULOSKELETAL: Multilevel degenerative changes of the lumbar spine. Diffuse skeletal hyperostosis of the distal thoracic spine. No acute fracture or focal osseous lesions. CT/CT abdomen pelvis wo IV con IMPRESSION: 1. No acute pathology of the abdomen or pelvis on this noncontrast study. 2. Hepatomegaly measuring 20 cm in midclavicular line. 3. Nonobstructing 2 mm right renal calculus. Fleischner guidelines were followed. Electronically signed by: Roderick Elliott DO 05/19/2024 11:43 PM EDT RP
[2024-05-07] MEDS: Sorbitol/Mannit/Xanth Imaging 500 ML LIQUID 1500 ML PO (09:44)
== END 2024-05-07 07:42 | disposition home or self-care (01) ==
LOC: HO.CT 07:41
PROVIDERS: Visit Provider Nurse Practitioner Family
DX: R19.8 Other specified symptoms and signs involving the digestive system and abdomen (principal)
CPT/HCPCS: 74176

== ENCOUNTER 2024-06-16 13:06 | Outpatient (AMB) | payer OTHER, SELFPAY ==
--- NOTE | 2024-06-16 13:12 | A.OFFVIS_ITS ---
Vital Signs 06/16/24 13:14 Height 5 ft 4 in Weight 282 lb 3.067 oz BMI 48.4 BP 128/68 Blood Pressure Location Rt brachial Position Sitting Pulse 68 Pulse Source Pulse Oximeter Pulse Oximetry (%) 95 Oxygen Delivery Method Room Air Intake Visit Reasons: follow up Intake Note: Jasmyn presents in office today for a scheduled FUV. CC; Pt still has active lab orders for BUN and creatinine. Pt had CT scan done 05/07/2024. Pt was rx'd esomeprazole, dulcolax, and prep for colo at last visit. Pt reports that they have been taking the new Rxs as intended without any difficulty. Pt plans to go to the lab today to have their missed labs drawn. Pt does have concerns regarding ongoing, new general GI upset, pt denies any constipation or diarrhea. Yarn Spooler Required: No Allergies JARRET Inhibitors [Jarret Inhibitors] Allergy (Severe, Verified 06/16/24 13:16) SWELLING guaifenesin [From Robitussin A-C] Allergy (Severe, Verified 06/16/24 13:16) SWELLING Iodinated Contrast Media [IV Dye, Iodine Containing] Allergy (Severe, Verified 06/16/24 13:16) SWELLING nifedipine [NIFEDIPINE] Allergy (Unknown, Verified 06/16/24 13:16) SWELLING pioglitazone Allergy (Unknown, Verified 06/16/24 13:16) Unknown diphenhydramine [From Benadryl] Allergy (Verified 06/16/24 13:16) Unknown tramadol Adverse Reaction (Intermediate, Verified 06/16/24 13:22) Migraine Robitussin Chest Congestion Allergy (Unknown, Uncoded 03/14/24 12:57) Unknown Robitussin Cold/Congestion Allergy (Unknown, Uncoded 03/14/24 12:57) Unknown HPI HPI follow up: Details: LAST VISIT ncounter for screening colonoscopy Dyspepsia Dysphagia GERD (gastroesophageal reflux disease) Constipation Plan CT SCAN ordered and scheduled for April. Recommendation was made based on finding on upper GI series. Contrast not passing through distal ileum. Possible stricture, narrowing or due to constipation. Patient will stop senna and start taking Dulcolax. Increase fluid intake and activity to promote better bowel motility. I will see patient in 2 months to discuss prep before going for colonoscopy. Message sent to surgical schedulers to book upper endoscopy and colonoscopy for patient. Patient will stop taking pantoprazole and will start Nexium. Avoid dietary triggers and late night snacking. Staying upright for minimum 3 hours after meals discussed with patient. Patient is agreeable to this plan and verbalizes understanding of instructions. She was given the opportunity to ask questions and all questions answered. ? Thank you for allowing me to participate in her care Orders Orders Blood Urea Nitrogen Today R10.11 Creatinine Today R10.11 Medications New polyethylene glycol 3350 (Miralax) As directed by gastroenterology department at [facility] 238 grams PO ONCE 238 grams 0RF Z12.11 esomeprazole magnesium (Nexium) 40 mg PO DAILY 30 caps 5RF K21.9 bisacodyl (Dulcolax (bisacodyl)) 10 mg (2 x 5 mg) PO BEDTIME 180 tabs 4RF Discontinued sennosides (Natural Senna Laxative) Discontinued Reason: Doctor's Order 17.2 mg (2 x 8.6 mg) PO BEDTIME 60 tabs 3RF constipation K59.00 TODAY'S VISIT Patient is here today for follow-up and to discuss CT scan results. Patient continues to have epigastric pain postprandially. Takes Nexium in the morning and famotidine at bedtime. Patient is also taking Dulcolax states that she is moving her bowels better, however she will have occasional loose stools and then constipation. Patient was ask to see if she would agree to weight loss medication like Mounjaro or Wegovy, however due to her symptoms patient is unwilling to do so. She is scheduled to go for upper endoscopy and colonoscopy and we can decide then depending on results. Patient denies any nausea or vomiting. Reports dyspepsia without dysphagia or odynophagia. Patient denies melena, hematochezia. [facility] Medical History Depression DJD (degenerative joint disease) Obstructive sleep apnea on CPAP Hyperlipidemia Insulin dependent type 2 diabetes mellitus Morbid obesity Endometrial cancer Fibromyalgia Hypertension Diabetes Surgical History Hx of colonoscopy Hx of section S/P total abdominal hysterectomy and bilateral salpingo-oophorectomy Family History Mother Diabetes HTN (hypertension) Sister Diabetes Father Stroke HTN (hypertension) Social History Household Members: None Housing: Apartment Alcohol intake: current Alcohol intake frequency: holidays/special occasions only Patient Tobacco Use Status: Never used Tobacco Current occupational status: retired Sexual orientation: Straight/Heterosexual Gender identity: Female Female Reproductive History Menstrual Age of Menarche: 12 Review of Systems Const Denies weight gain and Denies weight loss ENT Reports no additional complaints, Denies dysphagia and Denies odynophagia Card Reports no additional complaints Resp Reports no additional complaints GI Reports abdominal pain (Epigastric), Denies belching, Denies melena, Reports bloating, Denies change in bowel habits, Denies dysphagia, Denies excessive flatus, Denies dyspepsia, Denies heartburn, Denies diarrhea, Denies loose stools, Denies nausea, Denies odynophagia and Denies vomiting Reports no additional complaints Musc Reports no additional complaints Neuro Reports no additional complaints Psych Reports no additional complaints Endo Reports no additional complaints Physical Exam Vital Signs: Last Vital Signs Pulse 68 06/16/24 13:14 BP 128/68 06/16/24 13:14 Pulse Ox 95 06/16/24 13:14 Oxygen Delivery Method Room Air 06/16/24 13:14 BMI result Body Mass Index 48.4 Const General: healthy appearing and no acute distress Nutritional Appearance: obese Orientation/consciousness: patient oriented x3 Resp Effort & Inspection: normal respiratory effort, able to speak in complete sentences, no tracheal deviation and symmetric chest movement Auscultation: clear to auscultation bilaterally Cardio Rate: regular rate GI Inspection: Yes normal to inspection, No distended and Yes obesity Palpation (GI): Soft to palpation, not firm, nontender and No hepatosplenomegaly present Auscultation: normal bowel sounds General: Yes no CVA tenderness Back/Spine/Pelvis Back: no CVA tenderness Skin General skin exam: elasticity normal, turgor normal and dry skin Neuro General: patient oriented x3 Psych Appearance: grossly normal Mental Status: mental status grossly normal Results Reviewed Results Reviewed: CT OF ABDOMEN AND PELVIS FINDINGS: LUNG BASES: The visualized lung bases are clear. CARDIOMEDIASTINUM: The visualized heart is normal in size without pericardial effusion. No coronary artery calcification. LIVER: Homogeneous in attenuation. Enlarged measuring 20 cm in the midclavicular line.. GALLBLADDER: Noninflamed. BILIARY SYSTEM: No intrahepatic or extrahepatic biliary dilation. PANCREAS: Homogeneous in attenuation. SPLEEN: Normal in size. GENITOURINARY: No contour deforming masses. No perinephric fluid collection. Nonobstructing right 2 mm renal calculus. No hydroureteronephrosis. ADRENAL GLANDS: Unremarkable. REPRODUCTIVE: Uterus absent. No solid adnexal masses. GASTROINTESTINAL: The visualized alimentary tract is normal in course. Sigmoid diverticular disease without diverticulitis. No evidence of obstruction. APPENDIX: The appendix is seen in its entirety and is unremarkable. PERITONEUM: No pneumoperitoneum. No intra-abdominal fluid collection. VASCULATURE: No abdominal aortic aneurysm. LYMPH NODES: No pathologically enlarged abdominal or pelvic lymph nodes. SOFT TISSUES/MUSCULOSKELETAL: Multilevel degenerative changes of the lumbar spine. Diffuse skeletal hyperostosis of the distal thoracic spine. No acute fracture or focal osseous lesions. CT/CT abdomen pelvis wo IV con IMPRESSION: 1. No acute pathology of the abdomen or pelvis on this noncontrast study. 2. Hepatomegaly measuring 20 cm in midclavicular line. 3. Nonobstructing 2 mm right renal calculus. Assessment & Plan Assessment & Plan (1) Obstructive sleep apnea on CPAP: Code(s): G47.33 - Obstructive sleep apnea (adult) (pediatric) Category: Medical (2) Encounter for screening colonoscopy: Code(s): Z12.11 - Encounter for screening for malignant neoplasm of colon Category: Medical (3) Dyspepsia: Code(s): R10.13 - Epigastric pain (4) Dysphagia: Code(s): R13.10 - Dysphagia, unspecified Qualifiers: Dysphagia type: pharyngoesophageal phase Qualified Code(s): R13.14 - Dysphagia, pharyngoesophageal phase (5) GERD (gastroesophageal reflux disease): Code(s): K21.9 - Gastro-esophageal reflux disease without esophagitis Qualifiers: Esophagitis presence: esophagitis presence not specified Qualified Code(s): K21.9 - Gastro-esophageal reflux disease without esophagitis (6) Constipation: Code(s): K59.00 - Constipation, unspecified Qualifiers: Constipation type: slow transit constipation Qualified Code(s): K59.01 - Slow transit constipation Plan Patient reports feeling tired will order CBC and CMP. History of anemia in the past. Colonoscopy and endoscopy already scheduled for August. What to expect before during and after procedure discussed with patient. Stressed the importance of good bowel prep with patient. Patient will follow-up on as needed basis. She is agreeable to this plan and verbalizes understanding of instructions. She was given the opportunity to ask questions and all questions answered. Thank you for allowing me to participate in her care Orders: Orders Complete Blood Count no Diff Today K21.9 - Gastro-esophageal reflux disease without esophagitis Comprehensive Met. Panel Today K21.9 - Gastro-esophageal reflux disease without esophagitis Coding Level of Care Code Est Pt Level 3 (05087) Diagnoses Obstructive sleep apnea on CPAP G47.33 Encounter for screening colonoscopy Z12.11 Dyspepsia R10.13 Pharyngoesophageal dysphagia R13.14 Dysphagia type: pharyngoesophageal phase Gastroesophageal reflux disease, unspecified whether esophagitis present K21.9 Esophagitis presence: esophagitis presence not specified Slow transit constipation K59.01 Constipation type: slow transit constipation Time Spent (min) 30 Comment 20 minutes spent with patient and additional 10 minutes spent reviewing her records
[2024-06-16 13:14] VITALS: BP 128/68; PULSE 68; O2SAT 95; BMI 48.4
== END 2024-06-16 14:19 | disposition home or self-care (01) ==
PROVIDERS: Visit Provider Nurse Practitioner Family
DX: G47.33 Obstructive sleep apnea (adult) (pediatric) (principal); Z12.11 Encounter for screening for malignant neoplasm of colon; R10.13 Epigastric pain; R13.14 Dysphagia, pharyngoesophageal phase; K21.9 Gastro-esophageal reflux disease without esophagitis; K59.01 Slow transit constipation
CPT/HCPCS: 99213

== ENCOUNTER 2024-06-16 13:06 | Outpatient (REF) | payer OTHER, SELFPAY ==
[2024-06-16 15:12] LABS: Hematocrit 41.3 % (37.0-47.0); Hemoglobin 13.6 g/dl (12.0-16.0); Mean Corpuscular HGB Conc 32.9 g/dl (31.0-35.0); Mean Corpuscular Volume 91.2 fL (80.0-98.0); Platelet Count 332 X10*3/uL (160-400); Red Blood Count 4.53 X10*6/uL (4.20-5.50); Red Cell Distribution Width 13.3 % (11.0-16.0)
[2024-06-16 15:26] LABS: Alanine Aminotransferase 34 U/L (0-31); Albumin Level 4.2 g/dL (3.5-5.0); Alkaline Phosphatase 146 U/L (39-117); Anion Gap 17 (12-20); Aspartate Amino Transferase 24 U/L (5-31); Bilirubin Total 0.4 mg/dL (0.0-1.0); Blood Urea Nitrogen 37 mg/dL (9-16); Calcium 9.8 mg/dL (8.4-10.2); Carbon Dioxide 31 mmol/L (22-29); Chloride 100 mmol/L (96-108); Estimated Glomerular Filt Rate 17; Glucose Random 153 mg/dL (60-115); Potassium 3.8 mmol/L (3.3-5.1); Sodium 144 mmol/L (135-145); Total Protein 7.8 g/dL (6.5-8.0)
== END 2024-06-16 13:07 | disposition home or self-care (01) ==
LOC: HO.LAB 13:06
PROVIDERS: Visit Provider Nurse Practitioner Family
DX: K21.9 Gastro-esophageal reflux disease without esophagitis (principal); G47.33 Obstructive sleep apnea (adult) (pediatric); Z12.11 Encounter for screening for malignant neoplasm of colon; R10.13 Epigastric pain; R13.14 Dysphagia, pharyngoesophageal phase; K59.01 Slow transit constipation
CPT/HCPCS: 36415; 80053; 85027; 99212

== ENCOUNTER 2024-09-12 07:48 | Day surgery (SDC) | payer OTHER, SELFPAY ==
[2024-09-09 12:50] VITALS: BMI 48.4
--- NOTE | 2024-09-11 10:19 | P.CONAN_ITS ---
HPI - Anesthesia Eval Consult details Narrative: 63yo F for Upper Endoscopy and Colonoscopy BMI 48 PMFSH Active Problems Active Problems: All Active Problems Depression (Acute) DJD (degenerative joint disease) (Acute) Fibromyalgia (Acute) Obstructive sleep apnea on CPAP (Acute) Hyperlipidemia (Acute) Hypertension (Acute) Insulin dependent type 2 diabetes mellitus (Acute) Morbid obesity (Acute) Encounter for screening colonoscopy (Acute) Vaginal itching (Acute) Candidiasis of genitalia in female (Acute) Diabetes (Acute) Eczema (Acute) Vulvar lesion (Acute) Bacterial vaginosis (Acute) Urine incontinence (Acute) Well woman exam (Acute) Past Medical History Medical History (Updated 09/11/24 @ 10:21 by Maru Pugh NP) CKD (chronic kidney disease) Depression DJD (degenerative joint disease) Obstructive sleep apnea on CPAP Hyperlipidemia Insulin dependent type 2 diabetes mellitus Morbid obesity Endometrial cancer Fibromyalgia Hypertension Diabetes Family History Family History Mother Diabetes HTN (hypertension) Sister Diabetes Father Stroke HTN (hypertension) Surgical History Surgical History Hx of colonoscopy Hx of section S/P total abdominal hysterectomy and bilateral salpingo-oophorectomy Social History Social History Household Members: None Housing: Apartment Alcohol intake: current Alcohol intake frequency: holidays/special occasions only Patient Tobacco Use Status: Never used Tobacco Current occupational status: retired Sexual orientation: Straight/Heterosexual Gender identity: Female Meds Allergies Allergy/AdvReac Type Severity Reaction Status Date / Time JAKY Inhibitors Allergy Severe SWELLING Verified 06/16/24 13:16 [Jaky Inhibitors] guaifenesin Allergy Severe SWELLING Verified 06/16/24 13:16 [From Robitussin A-C] Iodinated Contrast Media Allergy Severe SWELLING Verified 06/16/24 13:16 [IV Dye, Iodine Containing] nifedipine [NIFEDIPINE] Allergy Unknown SWELLING Verified 06/16/24 13:16 pioglitazone Allergy Unknown Unknown Verified 06/16/24 13:16 diphenhydramine Allergy Unknown Verified 06/16/24 13:16 [From Benadryl] tramadol AdvReac Intermediate Migraine Verified 06/16/24 13:22 Robitussin Chest Congestion Allergy Unknown Unknown Uncoded 03/14/24 12:57 Robitussin Cold/Congestion Allergy Unknown Unknown Uncoded 03/14/24 12:57 Home Medications ?Medication ?Instructions ?Recorded ?Confirmed ?Last Taken ?Type acetaminophen 325 mg capsule 325 mg PO QID PRN 07/11/21 03/14/24 Unknown History (Tylenol) carvedilol 25 mg tablet 25 mg PO BID 07/11/21 03/14/24 Unknown History cetirizine 10 mg capsule (All Day 10 mg PO DAILY PRN 07/11/21 03/14/24 Unknown History Allergy (cetirizine)) cholecalciferol (vitamin D3) 25 25 mcg PO DAILY 01/16/24 03/14/24 Unknown History mcg (1,000 unit) capsule (Vitamin D3) ondansetron HCl 4 mg tablet 4 mg PO Q8H PRN 01/16/24 03/14/24 Unknown History rosuvastatin 20 mg tablet 20 mg PO BEDTIME 01/16/24 03/14/24 Unknown History famotidine 20 mg tablet 20 mg PO DAILY 03/14/24 03/14/24 Unknown History insulin aspart U-100 100 unit/mL 12 unit subcut TID 03/14/24 03/14/24 Unknown History (3 mL) subcutaneous pen (Novolog FlexPen U-100 Insulin aspart) insulin glargine U-300 conc 300 40 unit subcut DAILY 03/14/24 03/14/24 Unknown History unit/mL (3 mL) subcutaneous pen (Toujeo Max U-300 SoloStar) amitriptyline 10 mg tablet 10 mg PO BEDTIME 03/31/24 Unknown History ascorbic acid (vitamin C) 250 mg PO 03/31/24 Unknown History chewable tablet blood-glucose sensor (FreeStyle #1 ea 03/31/24 Unknown History Lynsey 3 Sensor device) hydrochlorothiazide 25 mg tablet 25 mg PO DAILY 03/31/24 Unknown History pen needle, diabetic 33 gauge x #100 ea 03/31/24 Unknown History (Comfort EZ Pen [place]) Exam Height,Weight and Vital Signs: Height 5 ft 4 in Weight 127.913 kg Assessment and Plan Assessment Anesthesia Assessment: Chart Reviewed
--- OUTSIDE RECORDS SUMMARY | 2024-09-12 07:51 | XMS_ITS | Patient Health Record ---
Author Organization [facility] Address [address], [place] [id number] Care Team Providers [facility] Sales Consultant Name Role Phone No, PCP Primary Care Provider Norman Almanzar [phone] Allergies Allergen (clinical drug ingredient) Drug/Non Drug Allergy documented on EMR Reaction Allergy Type Onset Date Status metformin metFORMIN hives Drug Allergy Active nifedipine nifedipine Unknown Drug Allergy Activ e Robitussin Unknown Drug Allergy Active diphenhydramine Benadryl Unknown Drug Allergy I nactive Reason For Referral No Information Medications Medication SIG (Take, Route, Frequency, Duration) Notes Start Date End Date Status ferrous sulfate Acti ve meclizine Not-Taking DULoxetine Active Vitamin D with calcuim Active buPROPion Active ibuprofen Not-Taking omeprazole Not-Takin g Flovent Not-Taking Januvia Active Topiramate Not-Takin g metFORMIN Not-Taking carvedilol Active amLODIPine Active oxyBUTYnin Not-Takin g cetirizine Active glipiZIDE Not-Taking Plan Of Treatment No Information Insurance Providers Payer Name Payer Address Payer Phone Subscriber Number Group Number Insured Name Patient Relationship to Insured Coverage Start Date Coverage End Date [facility] [address] [place] [address] [id number] Jasmyn Mcbride Self - patient is the insured [address] [address] Jasmyn Mcbride Self - patient is the insured 0 [employer] [employer] [facility] [employer] [address] [place] [id number] Jasmyn Mcbride Self - patient is the insured 0 Medical (General) History Medical History History ICD Code asthma diabetes fainting/dizziness high blood pressure hx of uterine cancer (has had hysterecto my) engage in recreational drug use Allergic to Jarret Inhibitor, IV dye
[2024-09-12 08:52] VITALS: BMI 49.1
[2024-09-12 09:23] VITALS: BP 130/60; PULSE 61; RESP 16; TEMP 36.3; O2SAT 96
--- NOTE | 2024-09-12 09:29 | MHC.SHP ---
Pre-Procedural Eval Section A - 24 Hr Update-Section A only Date of Service: 09/12/24 The patient is an INPATIENT: No The patient has been examined within 24 hours of the surgical procedure. The History & Physical has been completed within 30 days and I have reviewed it.: No Section B - Complete if H&P > 30 days Chief Complaint: screening, GERD, dysphagia Relevant Family History (Specify if Yes): No Relevant Social History: None Present Medications: see Short Stay Collaborative assessment Medical History: Significant History (Depression DJD (degenerative joint disease) Obstructive sleep apnea on CPAP Hyperlipidemia Insulin dependent type 2 diabetes mellitus Morbid obesity Endometrial cancer Fibromyalgia Hypertension Diabetes) History of Previous Operations: Relevant previous surgery/procedure and date(s) (Hx of colonoscopy Hx of section S/P total abdominal hysterectomy and bilateral salpingo-oophorectomy) Allergies: Allergies Allergy/AdvReac Type Severity Reaction Status Date / Time JARRET Inhibitors Allergy Severe SWELLING Verified 09/12/24 09:00 [Jarret Inhibitors] guaifenesin Allergy Severe SWELLING Verified 09/12/24 09:00 [From Robitussin A-C] Iodinated Contrast Media Allergy Severe SWELLING Verified 09/12/24 09:00 [IV Dye, Iodine Containing] nifedipine [NIFEDIPINE] Allergy Unknown SWELLING Verified 09/12/24 09:00 pioglitazone Allergy Unknown Swelling Verified 09/12/24 09:00 amitriptyline Allergy Swelling Verified 09/12/24 09:09 empagliflozin Allergy Itching Verified 09/12/24 09:09 [From Jardiance] gabapentin Allergy Swelling Verified 09/12/24 09:08 metformin Allergy Swelling Verified 09/12/24 09:08 pregabalin [From Lyrica] Allergy Swelling Verified 09/12/24 09:08 semaglutide [From Ozempic] Allergy Swelling Verified 09/12/24 09:09 tramadol AdvReac Intermediate Migraine Verified 09/12/24 09:00 Robitussin Chest Congestion Allergy Unknown Unknown Uncoded 03/14/24 12:57 Robitussin Cold/Congestion Allergy Unknown Unknown Uncoded 03/14/24 12:57 Review of Systems Sugical H&P ROS: Negative: Constitution, Cardiovascular and Respiratory and Yes, Specify: Gastrointestinal (Epigastric pain) Exam Surgical H&P Exam: Normal: Heart, Normal: Lungs, Normal: Extremities and Normal: Abdomen Plan Diagnosis/Plan: Unchanged I have reviewed the history and physical and performed a pertinent physical examination on my patient. No changes have occurred unless specified. Time Spent With Patient Time: Total time managing care of this patient today ____ minutes.
[2024-09-12 09:30] LABS: Glucose, Whole Blood 130 mg/dL (60-115)
--- NOTE | 2024-09-12 09:58 | HO.ANESPROP2 ---
PMFSH Active Problems Active Problems: All Active Problems Encounter for screening colonoscopy (Acute) Vaginal itching (Acute) Candidiasis of genitalia in female (Acute) Eczema (Acute) Vulvar lesion (Acute) Bacterial vaginosis (Acute) Urine incontinence (Acute) Well woman exam (Acute) Depression (Acute) DJD (degenerative joint disease) (Acute) Fibromyalgia (Acute) Obstructive sleep apnea on CPAP (Acute) Hyperlipidemia (Acute) Hypertension (Acute) Insulin dependent type 2 diabetes mellitus (Acute) Morbid obesity (Acute) Diabetes (Acute) Past Medical History Medical History Anemia GERD (gastroesophageal reflux disease) CKD (chronic kidney disease) Depression DJD (degenerative joint disease) Obstructive sleep apnea on CPAP Hyperlipidemia Insulin dependent type 2 diabetes mellitus Morbid obesity Endometrial cancer Fibromyalgia Hypertension Diabetes Functional capacity: independent ambulation Patient : No Family History Family History Mother Diabetes HTN (hypertension) Sister Diabetes Father Stroke HTN (hypertension) Family history of problems with anesthesia: No Surgical History Surgical History Hx of hand surgery History of esophagogastroduodenoscopy (EGD) History of thyroid surgery Hx of colonoscopy Hx of section S/P total abdominal hysterectomy and bilateral salpingo-oophorectomy History of Problems with Anesthesia: No Social History Social History Household Members: None Housing: Apartment Alcohol intake: current Alcohol intake frequency: holidays/special occasions only Patient Tobacco Use Status: Never used Tobacco Use of substances other than those prescribed or required for medical reasons: No Are you DNR?: No Advance Directives: No Advance Directives Information Provided: Yes Current occupational status: retired Sexual orientation: Straight/Heterosexual Gender identity: Female Meds Allergies Allergy/AdvReac Type Severity Reaction Status Date / Time JARRET Inhibitors Allergy Severe SWELLING Verified 09/12/24 09:00 [Jarret Inhibitors] guaifenesin Allergy Severe SWELLING Verified 09/12/24 09:00 [From Robitussin A-C] Iodinated Contrast Media Allergy Severe SWELLING Verified 09/12/24 09:00 [IV Dye, Iodine Containing] nifedipine [NIFEDIPINE] Allergy Unknown SWELLING Verified 09/12/24 09:00 pioglitazone Allergy Unknown Swelling Verified 09/12/24 09:00 amitriptyline Allergy Swelling Verified 09/12/24 09:09 empagliflozin Allergy Itching Verified 09/12/24 09:09 [From Jardiance] gabapentin Allergy Swelling Verified 09/12/24 09:08 metformin Allergy Swelling Verified 09/12/24 09:08 pregabalin [From Lyrica] Allergy Swelling Verified 09/12/24 09:08 semaglutide [From Ozempic] Allergy Swelling Verified 09/12/24 09:09 tramadol AdvReac Intermediate Migraine Verified 09/12/24 09:00 Robitussin Chest Congestion Allergy Unknown Unknown Uncoded 03/14/24 12:57 Robitussin Cold/Congestion Allergy Unknown Unknown Uncoded 03/14/24 12:57 Active Medications: Current Medications Lactated Ringer's (Lr) 1,000 mls @ 100 mls/hr IVCONT .Q10H TAY Home Medications ?Medication ?Instructions ?Recorded ?Confirmed ?Last Taken ?Type acetaminophen 325 mg capsule 325 mg PO QID PRN Mild Pain (Scale 07/11/21 09/12/24 Unknown History (Tylenol) Score 1-4) carvedilol 25 mg tablet 25 mg PO BID 07/11/21 09/12/24 Unknown History cetirizine 10 mg capsule (All Day 10 mg PO DAILY PRN Allergy Symptoms 07/11/21 09/12/24 Unknown History Allergy (cetirizine)) cholecalciferol (vitamin D3) 25 25 mcg PO DAILY 01/16/24 09/12/24 Unknown History mcg (1,000 unit) capsule (Vitamin D3) ondansetron HCl 4 mg tablet 4 mg PO Q8H PRN Nausea 01/16/24 09/12/24 Unknown History rosuvastatin 20 mg tablet 20 mg PO BEDTIME 01/16/24 09/12/24 Unknown History famotidine 20 mg tablet 20 mg PO BEDTIME 03/14/24 09/12/24 Unknown History insulin aspart U-100 100 unit/mL 14 unit subcut TID 03/14/24 09/12/24 Unknown History (3 mL) subcutaneous pen (Novolog FlexPen U-100 Insulin aspart) ascorbic acid (vitamin C) 250 mg 250 mg PO DAILY 03/31/24 09/12/24 Unknown History chewable tablet blood-glucose sensor (FreeStyle #1 ea 03/31/24 09/12/24 Unknown History Lynsey 3 Sensor device) hydrochlorothiazide 25 mg tablet 25 mg PO DAILY 03/31/24 09/12/24 Unknown History pen needle, diabetic 33 gauge x #100 ea 03/31/24 09/12/24 Unknown History (Comfort EZ Pen [place]) insulin degludec 200 unit/mL (3 64 unit subcut DAILY 09/12/24 09/12/24 Unknown History mL) subcutaneous pen (Tresiba FlexTouch U-200 insulin) Exam Height,Weight and Vital Signs: Height 5 ft 4 in Weight 129.727 kg Last Vital Signs Temp 97.4 F 09/12/24 09:23 Pulse 61 09/12/24 09:23 Resp 16 09/12/24 09:23 BP 130/60 09/12/24 09:23 Pulse Ox 96 09/12/24 09:23 O2 Del Method Room Air 09/12/24 09:23 Pertinent Lab Results Pertinent Lab Results: Laboratory Tests 09/12/24 09:27 POC Glucose 130 H Airway Mallampati Class: III TM Dist: >3cm Neck ROM: Full Heart: RRR Lungs: CTA Assessment and Plan Assessment Anesthesia Assessment: Anesthesia Plan Discussed and Chart Reviewed Final Anesthetic Review Family History of Problems with Anesthesia: No History of Problems with Anesthesia: No NPO: Yes ASA Class: III Final Preanesthetic Review: Meds/Allgs Chart Reviewed, Consent Obtained/Reviewed and Anes Risks/Benef Reviewed Patient Risk: Intermediate Procedure Risk: Low Anesthetic Plan Anesthetic Plan: MAC: Disposition: Standard PACU
--- NOTE | 2024-09-12 10:04 | P.CONAN_ITS ---
PMFSH Active Problems Active Problems: All Active Problems Encounter for screening colonoscopy (Acute) Vaginal itching (Acute) Candidiasis of genitalia in female (Acute) Eczema (Acute) Vulvar lesion (Acute) Bacterial vaginosis (Acute) Urine incontinence (Acute) Well woman exam (Acute) Depression (Acute) DJD (degenerative joint disease) (Acute) Fibromyalgia (Acute) Obstructive sleep apnea on CPAP (Acute) Hyperlipidemia (Acute) Hypertension (Acute) Insulin dependent type 2 diabetes mellitus (Acute) Morbid obesity (Acute) Diabetes (Acute) Past Medical History Medical History Anemia GERD (gastroesophageal reflux disease) CKD (chronic kidney disease) Depression DJD (degenerative joint disease) Obstructive sleep apnea on CPAP Hyperlipidemia Insulin dependent type 2 diabetes mellitus Morbid obesity Endometrial cancer Fibromyalgia Hypertension Diabetes Functional capacity: independent ambulation Family History Family History Mother Diabetes HTN (hypertension) Sister Diabetes Father Stroke HTN (hypertension) Family history of problems with anesthesia: No Surgical History Surgical History Hx of hand surgery History of esophagogastroduodenoscopy (EGD) History of thyroid surgery Hx of colonoscopy Hx of section S/P total abdominal hysterectomy and bilateral salpingo-oophorectomy History of Problems with Anesthesia: No Social History Social History Household Members: None Housing: Apartment Alcohol intake: current Alcohol intake frequency: holidays/special occasions only Patient Tobacco Use Status: Never used Tobacco Use of substances other than those prescribed or required for medical reasons: No Are you DNR?: No Advance Directives: No Advance Directives Information Provided: Yes Patient : No Current occupational status: retired Sexual orientation: Straight/Heterosexual Gender identity: Female Meds Allergies Allergy/AdvReac Type Severity Reaction Status Date / Time JARRET Inhibitors Allergy Severe SWELLING Verified 09/12/24 09:00 [Jarret Inhibitors] guaifenesin Allergy Severe SWELLING Verified 09/12/24 09:00 [From Robitussin A-C] Iodinated Contrast Media Allergy Severe SWELLING Verified 09/12/24 09:00 [IV Dye, Iodine Containing] nifedipine [NIFEDIPINE] Allergy Unknown SWELLING Verified 09/12/24 09:00 pioglitazone Allergy Unknown Swelling Verified 09/12/24 09:00 amitriptyline Allergy Swelling Verified 09/12/24 09:09 empagliflozin Allergy Itching Verified 09/12/24 09:09 [From Jardiance] gabapentin Allergy Swelling Verified 09/12/24 09:08 metformin Allergy Swelling Verified 09/12/24 09:08 pregabalin [From Lyrica] Allergy Swelling Verified 09/12/24 09:08 semaglutide [From Ozempic] Allergy Swelling Verified 09/12/24 09:09 tramadol AdvReac Intermediate Migraine Verified 09/12/24 09:00 Robitussin Chest Congestion Allergy Unknown Unknown Uncoded 03/14/24 12:57 Robitussin Cold/Congestion Allergy Unknown Unknown Uncoded 03/14/24 12:57 Active Medications: Current Medications Lactated Ringer's (Lr) 1,000 mls @ 100 mls/hr IVCONT .Q10H TAY Naloxone HCl (Naloxone Hcl 0.4 Mg/Ml Vial) 0.04 mg IVPUSH Q5M PRN PRN Reason: Excessive sedation or RR < 8 Home Medications ?Medication ?Instructions ?Recorded ?Confirmed ?Last Taken ?Type acetaminophen 325 mg capsule 325 mg PO QID PRN Mild Pain (Scale 07/11/21 09/12/24 Unknown History (Tylenol) Score 1-4) carvedilol 25 mg tablet 25 mg PO BID 07/11/21 09/12/24 Unknown History cetirizine 10 mg capsule (All Day 10 mg PO DAILY PRN Allergy Symptoms 07/11/21 09/12/24 Unknown History Allergy (cetirizine)) cholecalciferol (vitamin D3) 25 25 mcg PO DAILY 01/16/24 09/12/24 Unknown History mcg (1,000 unit) capsule (Vitamin D3) ondansetron HCl 4 mg tablet 4 mg PO Q8H PRN Nausea 01/16/24 09/12/24 Unknown History rosuvastatin 20 mg tablet 20 mg PO BEDTIME 01/16/24 09/12/24 Unknown History famotidine 20 mg tablet 20 mg PO BEDTIME 03/14/24 09/12/24 Unknown History insulin aspart U-100 100 unit/mL 14 unit subcut TID 03/14/24 09/12/24 Unknown History (3 mL) subcutaneous pen (Novolog FlexPen U-100 Insulin aspart) ascorbic acid (vitamin C) 250 mg 250 mg PO DAILY 03/31/24 09/12/24 Unknown History chewable tablet blood-glucose sensor (FreeStyle #1 ea 03/31/24 09/12/24 Unknown History Lynsey 3 Sensor device) hydrochlorothiazide 25 mg tablet 25 mg PO DAILY 03/31/24 09/12/24 Unknown History pen needle, diabetic 33 gauge x #100 ea 03/31/24 09/12/24 Unknown History (Comfort EZ Pen [place]) insulin degludec 200 unit/mL (3 64 unit subcut DAILY 09/12/24 09/12/24 Unknown History mL) subcutaneous pen (Tresiba FlexTouch U-200 insulin) Exam Height,Weight and Vital Signs: Height 5 ft 4 in Weight 129.727 kg Last Vital Signs Temp 97.4 F 09/12/24 09:23 Pulse 61 09/12/24 09:23 Resp 16 09/12/24 09:23 BP 130/60 09/12/24 09:23 Pulse Ox 96 09/12/24 09:23 O2 Del Method Room Air 09/12/24 09:23 Pertinent Lab Results Pertinent Lab Results: Laboratory Tests 09/12/24 09:27 POC Glucose 130 H Assessment and Plan Final Anesthetic Review Family History of Problems with Anesthesia: No History of Problems with Anesthesia: No
--- NOTE | 2024-09-12 10:52 | P.OPN-COLO_ITS ---
Colonoscopy Operative Note Operative Note Date of Service: 09/12/24 Narrative: FLEXIBLE TRANSORAL UPPER GASTROINTESTINAL ENDOSCOPY WITH BIOPSIES AND COLONOSCOPY TILL CECUM WITH BIOPSIES AND SNARE POLYPECTOMY AND HEMOCLIP PLACMENT Pre-op diagnosis: Surveillance for colon polyps, GERD, dysphagia Post-op diagnosis: GERD, Gastritis, Colon Polyps, Diverticulosis, hemorrhoids Endoscopist:? Janet Marroquin MD Anesthesia:?MAC UPPER ENDOSCOPY Consent: Indications for the procedure and potential complications of bleeding, perforation, reaction to medications and missed diagnosis were discussed with the patient and informed consent was obtained. Instrument: Olympus GIF H 190 mid size upper endoscope Monitoring: Vital signs and clinical assessment, continuous EKG monitoring, Pulse oximetry, Carbon Dioxide monitoring and blood pressure monitoring were done throughout the procedure. Procedure: The patient was placed in the left lateral decubitis position and pre-procedure medications were administered and a bite block was placed. The endoscope was inserted into the mouth and advanced under direct vision to the third part of duodenum. A careful inspection was made as the upper endoscope was withdrawn including a retroflexed examination of the proximal stomach; Findings and interventions are described below. Findings: Larynx: Normal Esophagus: GE junction at 35 cms. Mildly tortuous esophagus without stricture or ring. No esophagitis or Fuller's. Stomach: Moderate diffuse gastric erythema - biopsies were obtained from the antrum. Grade 2 flap valve on retroflexed examination of the cardia. Duodenum: Normal bulb and descending duodenum Biopsies obtained during previous EGD were negative for celiac sprue Intervention: Biopsies as noted above COLONOSCOPY PROCEDURE NOTE Instrument: Olympus PCF H 190 L variable stiffness pediatric colonoscope Monitoring: Vital signs and clinical assessment, intermittent blood pressure monitoring, continuous EKG monitoring, Pulse oximetry and Carbon Dioxide monitoring were done throughout the procedure. Please see anesthesia flowsheet. Colon withdrawl time was 43 minutes. Procedure: The patient was placed in the left lateral decubitis position and pre-procedure medications were administered. After a digital rectal examination of the ano-rectum, the video colonoscope was inserted into the rectum and advanced through the colon to the cecum. The colonoscope was slowly withdrawn in a retrograde panoramic fashion and the colon mucosa was carefully examined including a retroflexed view of the rectum. Findings and interventions are described below. Procedure Difficulty: without difficulty Findings: Terminal Ileum: Not evaluated Cecum: A 3-4 mm sessile polyp - removed with a cold snare. ? sessile polyp at the appendicular orifice - unable to snare the polyp. Multiple biopsies were obtained with the cold biopsy forceps Ascending Colon: Normal Transverse Colon: Two 1.5 to 2 cms sessile polyps from 70 to 75 cms - removed with a hot snare. One polypectomy site was closed with a hemoclip. A 2 to 2.5 cms pedunculated polyp at 60 cms - removed with a hot snare. Polypectomy site was closed with 1 hemoclip Descending Colon: Moderate diverticulosis Sigmoid Colon: A 12-15 mm sessile polyp at 40 cms - removed with a hot snare. Polypectomy site was closed with 1 hemoclip. Moderate diverticulosis Rectum: Normal Ano-rectum: Normal Colon preparation: Good after some irrigation. [place] Bowel Preparation Scale Right colon; 2 Transverse colon: 2 Left colon; 2 (0 = Unprepared colon segment with mucosa not seen due to solid stool that cannot be cleared. 1 = Portion of mucosa of the colon segment seen, but other areas of the colon segment not well seen due to staining, residual stool and/or opaque liquid. 2 = Minor amount of residual staining, small fragments of stool and/or opaque liquid, but mucosa of colon segment seen well. 3 = Entire mucosa of colon segment seen well with no residual staining, small fragments of stool or opaque liquid) Impression and Post Procedure Diagnosis: Endoscopy Findings: ESOPHAGUS: Mildly tortuous esophagus without stricture or ring. No esophagitis or Fuller's. STOMACH: Diffuse gastritis DUODENUM: Normal Colonoscopy Findings: Four medium sized and one small polyps were removed Moderate diverticulosis seen in the left colon Plan: Pt has a FU appointment on 09/26/24 with Daija Brice NP Repeat Colonoscopy in 6 to 12 months if cecal polyps are adenomatous and for FU of multiple medium sized adenomatous colon polyps. Above findings were reviewed with the patient and relevant handouts were given and the discharge area. BIOPSIES SHOWED: A. Gastric antrum, biopsy: Gastric antral mucosa with mild reactive changes and minimal chronic inactive gastritis; negative for intestinal metaplasia and dysplasia. B. Colon, cecal polyps x2: Tubular adenoma; negative for high-grade dysplasia and carcinoma, and colonic mucosa with minimal hyperplastic changes. C. Colon, transverse, 2 polyps: Tubular adenomas, 4 pieces; negative for high- grade dysplasia and carcinoma. D. Colon, transverse, at 60 cm, polyp: Tubular adenoma, appears excised; negative for high-grade dysplasia and carcinoma. E. Colon, sigmoid, polyp: Tubular adenoma, completely excised; negative for high-grade dysplasia and carcinoma Letter sent advising repeat colonoscopy in 6 months to FU on cecal polyp
--- NOTE | 2024-09-12 11:07 | P.CONAN_ITS ---
PMFSH Active Problems Active Problems: All Active Problems Encounter for screening colonoscopy (Acute) Vaginal itching (Acute) Candidiasis of genitalia in female (Acute) Eczema (Acute) Vulvar lesion (Acute) Bacterial vaginosis (Acute) Urine incontinence (Acute) Well woman exam (Acute) Depression (Acute) DJD (degenerative joint disease) (Acute) Fibromyalgia (Acute) Obstructive sleep apnea on CPAP (Acute) Hyperlipidemia (Acute) Hypertension (Acute) Insulin dependent type 2 diabetes mellitus (Acute) Morbid obesity (Acute) Diabetes (Acute) Past Medical History Medical History Anemia GERD (gastroesophageal reflux disease) CKD (chronic kidney disease) Depression DJD (degenerative joint disease) Obstructive sleep apnea on CPAP Hyperlipidemia Insulin dependent type 2 diabetes mellitus Morbid obesity Endometrial cancer Fibromyalgia Hypertension Diabetes Functional capacity: independent ambulation Family History Family History Mother Diabetes HTN (hypertension) Sister Diabetes Father Stroke HTN (hypertension) Family history of problems with anesthesia: No Surgical History Surgical History Hx of hand surgery History of esophagogastroduodenoscopy (EGD) History of thyroid surgery Hx of colonoscopy Hx of section S/P total abdominal hysterectomy and bilateral salpingo-oophorectomy History of Problems with Anesthesia: No Social History Social History Household Members: None Housing: Apartment Alcohol intake: current Alcohol intake frequency: holidays/special occasions only Patient Tobacco Use Status: Never used Tobacco Use of substances other than those prescribed or required for medical reasons: No Are you DNR?: No Advance Directives: No Advance Directives Information Provided: Yes Patient : No Current occupational status: retired Sexual orientation: Straight/Heterosexual Gender identity: Female Meds Allergies Allergy/AdvReac Type Severity Reaction Status Date / Time JARRET Inhibitors Allergy Severe SWELLING Verified 09/12/24 09:00 [Jarret Inhibitors] guaifenesin Allergy Severe SWELLING Verified 09/12/24 09:00 [From Robitussin A-C] Iodinated Contrast Media Allergy Severe SWELLING Verified 09/12/24 09:00 [IV Dye, Iodine Containing] nifedipine [NIFEDIPINE] Allergy Unknown SWELLING Verified 09/12/24 09:00 pioglitazone Allergy Unknown Swelling Verified 09/12/24 09:00 amitriptyline Allergy Swelling Verified 09/12/24 09:09 empagliflozin Allergy Itching Verified 09/12/24 09:09 [From Jardiance] gabapentin Allergy Swelling Verified 09/12/24 09:08 metformin Allergy Swelling Verified 09/12/24 09:08 pregabalin [From Lyrica] Allergy Swelling Verified 09/12/24 09:08 semaglutide [From Ozempic] Allergy Swelling Verified 09/12/24 09:09 tramadol AdvReac Intermediate Migraine Verified 09/12/24 09:00 Robitussin Chest Congestion Allergy Unknown Unknown Uncoded 03/14/24 12:57 Robitussin Cold/Congestion Allergy Unknown Unknown Uncoded 03/14/24 12:57 Active Medications: Current Medications Lactated Ringer's (Lr) 1,000 mls @ 100 mls/hr IVCONT .Q10H TAY Naloxone HCl (Naloxone Hcl 0.4 Mg/Ml Vial) 0.04 mg IVPUSH Q5M PRN PRN Reason: Excessive sedation or RR < 8 Home Medications ?Medication ?Instructions ?Recorded ?Confirmed ?Last Taken ?Type acetaminophen 325 mg capsule 325 mg PO QID PRN Mild Pain (Scale 07/11/21 09/12/24 Unknown History (Tylenol) Score 1-4) carvedilol 25 mg tablet 25 mg PO BID 07/11/21 09/12/24 Unknown History cetirizine 10 mg capsule (All Day 10 mg PO DAILY PRN Allergy Symptoms 07/11/21 09/12/24 Unknown History Allergy (cetirizine)) cholecalciferol (vitamin D3) 25 25 mcg PO DAILY 01/16/24 09/12/24 Unknown History mcg (1,000 unit) capsule (Vitamin D3) ondansetron HCl 4 mg tablet 4 mg PO Q8H PRN Nausea 01/16/24 09/12/24 Unknown History rosuvastatin 20 mg tablet 20 mg PO BEDTIME 01/16/24 09/12/24 Unknown History famotidine 20 mg tablet 20 mg PO BEDTIME 03/14/24 09/12/24 Unknown History insulin aspart U-100 100 unit/mL 14 unit subcut TID 03/14/24 09/12/24 Unknown History (3 mL) subcutaneous pen (Novolog FlexPen U-100 Insulin aspart) ascorbic acid (vitamin C) 250 mg 250 mg PO DAILY 03/31/24 09/12/24 Unknown History chewable tablet blood-glucose sensor (FreeStyle #1 ea 03/31/24 09/12/24 Unknown History Lynsey 3 Sensor device) hydrochlorothiazide 25 mg tablet 25 mg PO DAILY 03/31/24 09/12/24 Unknown History pen needle, diabetic 33 gauge x #100 ea 03/31/24 09/12/24 Unknown History (Comfort EZ Pen [place]) insulin degludec 200 unit/mL (3 64 unit subcut DAILY 09/12/24 09/12/24 Unknown History mL) subcutaneous pen (Tresiba FlexTouch U-200 insulin) Exam Height,Weight and Vital Signs: Height 5 ft 4 in Weight 129.727 kg Last Vital Signs Temp 97.4 F 09/12/24 09:23 Pulse 61 09/12/24 09:23 Resp 16 09/12/24 09:23 BP 130/60 09/12/24 09:23 Pulse Ox 96 09/12/24 09:23 O2 Del Method Room Air 09/12/24 09:23 Pertinent Lab Results Pertinent Lab Results: Laboratory Tests 09/12/24 09:27 POC Glucose 130 H Airway Heart: RRR Lungs: CTA Assessment and Plan Assessment Anesthesia Assessment: Anesthesia Plan Discussed and Chart Reviewed Final Anesthetic Review Family History of Problems with Anesthesia: No History of Problems with Anesthesia: No NPO: Yes ASA Class: III Final Preanesthetic Review: Meds/Allgs Chart Reviewed, Consent Obtained/Reviewed and Anes Risks/Benef Reviewed Patient Risk: Intermediate Procedure Risk: Low Anesthetic Plan Anesthetic Plan: MAC:
[2024-09-12 11:42] VITALS: BP 131/69; PULSE 80; RESP 12; TEMP 36.6; O2SAT 98
[2024-09-12 11:58] VITALS: BP 163/82; PULSE 79; RESP 16; O2SAT 97
[2024-09-12 12:13] VITALS: BP 166/77; PULSE 69; RESP 16; TEMP 36.6; O2SAT 100
--- NOTE | 2024-09-12 12:14 | HO.POSTANES ---
Post Anesthesia Evaluation Post Anesthesia Evaluation Date of Service: 09/12/24 Vital Signs: Vital Signs Temp Pulse Resp BP Pulse Ox O2 Del Method 09/12/24 11:58 79 16 163/82 H 97 Room Air 09/12/24 11:42 98 F 80 12 131/69 98 Room Air 09/12/24 09:23 97.4 F 61 16 130/60 96 Room Air Anesthesia: Monitored Mental Status: Awake Pain Control: Satisfactory Nausea/Vomiting: None Hydration: Adequate Anesthesia-Related Issues: No Anes. Related Issues
== END 2024-09-12 12:36 | disposition home or self-care (01) ==
PROVIDERS: Visit Provider Internal Medicine Gastroenterology
PROC: (CPT 45385; principal; 2024-09-12 10:10)
DX: Z12.11 Encounter for screening for malignant neoplasm of colon (principal); D12.0 Benign neoplasm of cecum; D12.3 Benign neoplasm of transverse colon; D12.5 Benign neoplasm of sigmoid colon; K57.30 Diverticulosis of large intestine without perforation or abscess without bleeding; K64.8 Other hemorrhoids; Z86.0101 Personal history of adenomatous and serrated colon polyps; K29.70 Gastritis, unspecified, without bleeding; K22.89 Other specified disease of esophagus; K21.9 Gastro-esophageal reflux disease without esophagitis; R13.19 Other dysphagia; E11.9 Type 2 diabetes mellitus without complications; I10 Essential (primary) hypertension; E78.5 Hyperlipidemia, unspecified; G47.33 Obstructive sleep apnea (adult) (pediatric); Z99.89 Dependence on other enabling machines and devices; Z79.02 Long term (current) use of antithrombotics/antiplatelets; Z79.4 Long term (current) use of insulin; Z79.899 Other long term (current) drug therapy
CPT/HCPCS: 45385; 45380; 43239; 82947; 88305; 88342; J1596; J2003; J2704

== ENCOUNTER → 2024-09-12 07:48 | Outpatient (BNV) | payer OTHER, SELFPAY | PROVIDERS: Visit Provider Internal Medicine Gastroenterology | DX: Z12.11 Encounter for screening for malignant neoplasm of colon (principal); Z86.0100 Personal history of colon polyps, unspecified; D12.0 Benign neoplasm of cecum; D12.3 Benign neoplasm of transverse colon; D12.5 Benign neoplasm of sigmoid colon; K57.30 Diverticulosis of large intestine without perforation or abscess without bleeding; K21.9 Gastro-esophageal reflux disease without esophagitis; R13.10 Dysphagia, unspecified; K29.70 Gastritis, unspecified, without bleeding | CPT/HCPCS: 43239; 45380; 45385 ==

== ENCOUNTER → 2024-09-26 09:02 | Outpatient (AMB) | payer OTHER, SELFPAY ==
--- OUTSIDE RECORDS SUMMARY | 2024-09-26 09:05 | XMS_ITS | Patient Health Record ---
Author Organization [facility] Address [address] [place], [place] [id number] Care Team Providers Care Collections Associate Name Role Phone No, PCP Primary Care Provider Norman Almanzar [phone] Allergies Allergen (clinical drug ingredient) Drug/Non Drug [...] Insured Coverage Start Date Coverage End Date [facility] [address] [place] [address] [id number] Jasmyn Mcbride Self - patient is the insured [address] [address] Jasmyn Mcbride Self - patient is the insured 0 [facility] [employer] [employer] [address] [place] [address] [id number] Jasmyn Mcbride Self - patient is the insured 0 Medical (General) History Medical History History ICD Code asthma diabetes fainting/dizziness high blood pressure hx of uterine cancer (has had hysterecto my) engage in recreational drug use Allergic to Jarret Inhibitor, IV dye
--- NOTE | 2024-09-26 09:14 | A.OFFVIS_ITS ---
Vital Signs 09/26/24 09:15 Height 5 ft 4 in Weight 290 lb 9.108 oz BMI 49.9 BP 132/72 Blood Pressure Location Lt brachial Position Sitting Pulse 56 Pulse Source Pulse Oximeter Pulse Oximetry (%) 96 Oxygen Delivery Method Room Air Intake Visit Reasons: S/P double; Dr. Marroquin Intake Note: ESTABLISHED PATIENT Reason; s/p FUV duo w/ RM Changes/concerns? NO significant concerns per pt. Allergies JARRET Inhibitors [Jarret Inhibitors] Allergy (Severe, Verified 09/26/24 09:22) SWELLING guaifenesin [From Robitussin A-C] Allergy (Severe, Verified 09/26/24 09:22) SWELLING Iodinated Contrast Media [IV Dye, Iodine Containing] Allergy (Severe, Verified 09/26/24 09:22) SWELLING nifedipine [NIFEDIPINE] Allergy (Unknown, Verified 09/26/24 09:22) SWELLING pioglitazone Allergy (Unknown, Verified 09/26/24 09:22) Swelling amitriptyline Allergy (Verified 09/26/24 09:22) Swelling empagliflozin [From Jardiance] Allergy (Verified 09/26/24 09:22) Itching gabapentin Allergy (Verified 09/26/24 09:22) Swelling metformin Allergy (Verified 09/26/24 09:22) Swelling pregabalin [From Lyrica] Allergy (Verified 09/26/24 09:22) Swelling semaglutide [From Ozempic] Allergy (Verified 09/26/24 09:22) Swelling duloxetine Adverse Reaction (Intermediate, Verified 09/26/24 09:22) Migraine tramadol Adverse Reaction (Intermediate, Verified 09/26/24 09:22) Migraine Robitussin Chest Congestion Allergy (Unknown, Uncoded 03/14/24 12:57) Unknown Robitussin Cold/Congestion Allergy (Unknown, Uncoded 03/14/24 12:57) Unknown HPI HPI S/P double; Dr. Marroquin: Details: LAST VISIT: Obstructive sleep apnea on CPAP Encounter for screening colonoscopy Dyspepsia Dysphagia GERD (gastroesophageal reflux disease) Constipation Plan Patient reports feeling tired will order CBC and CMP. History of anemia in the past. Colonoscopy and endoscopy already scheduled for August. What to expect before during and after procedure discussed with patient. Stressed the importance of good bowel prep with patient. Patient will follow-up on as needed basis. She is agreeable to this plan and verbalizes understanding of instructions. She was given the opportunity to ask questions and all questions answered. ? Thank you for allowing me to participate in her care Orders Orders Complete Blood Count no Diff Today K21.9 Comprehensive Met. Panel Today K21.9 UPPER ENDOSCOPY AND COLONOSCOPY: Findings: Larynx: Normal Esophagus: GE junction at 35 cms. Mildly tortuous esophagus without stricture or ring. No esophagitis or Fuller's. Stomach: Moderate diffuse gastric erythema - biopsies were obtained from the antrum. Grade 2 flap valve on retroflexed examination of the cardia. Duodenum: Normal bulb and descending duodenum Biopsies obtained during previous EGD were negative for celiac sprue Intervention: Biopsies as noted above COLONOSCOPY PROCEDURE NOTE Instrument: Olympus PCF H 190 L variable stiffness pediatric colonoscope Monitoring: Vital signs and clinical assessment, intermittent blood pressure monitoring, continuous EKG monitoring, Pulse oximetry and Carbon Dioxide monitoring were done throughout the procedure. Please see anesthesia flowsheet. Colon withdrawl time was 43 minutes. Procedure: The patient was placed in the left lateral decubitis position and pre-procedure medications were administered. After a digital rectal examination of the ano-rectum, the video colonoscope was inserted into the rectum and advanced through the colon to the cecum. The colonoscope was slowly withdrawn in a retrograde panoramic fashion and the colon mucosa was carefully examined including a retroflexed view of the rectum. Findings and interventions are described below. Procedure Difficulty: without difficulty Findings: Terminal Ileum: Not evaluated Cecum: A 3-4 mm sessile polyp - removed with a cold snare. ? sessile polyp at the appendicular orifice - unable to snare the polyp. Multiple biopsies were obtained with the cold biopsy forceps Ascending Colon: Normal Transverse Colon: Two 1.5 to 2 cms sessile polyps from 70 to 75 cms - removed with a hot snare. One polypectomy site was closed with a hemoclip. A 2 to 2.5 cms pedunculated polyp at 60 cms - removed with a hot snare. Polypectomy site was closed with 1 hemoclip Descending Colon: Moderate diverticulosis Sigmoid Colon: A 12-15 mm sessile polyp at 40 cms - removed with a hot snare. Polypectomy site was closed with 1 hemoclip. Moderate diverticulosis Rectum: Normal Ano-rectum: Normal Colon preparation: Good after some irrigation. [place] Bowel Preparation Scale Right colon; 2 Transverse colon: 2 Left colon; 2 (0 = Unprepared colon segment with mucosa not seen due to solid stool that cannot be cleared. 1 = Portion of mucosa of the colon segment seen, but other areas of the colon segment not well seen due to staining, residual stool and/or opaque liquid. 2 = Minor amount of residual staining, small fragments of stool and/or opaque liquid, but mucosa of colon segment seen well. 3 = Entire mucosa of colon segment seen well with no residual staining, small fragments of stool or opaque liquid) Impression and Post Procedure Diagnosis: Endoscopy Findings: ESOPHAGUS: Mildly tortuous esophagus without stricture or ring. No esophagitis or Fuller's. STOMACH: Diffuse gastritis DUODENUM: Normal Colonoscopy Findings: Four medium sized and one small polyps were removed Moderate diverticulosis seen in the left colon Plan: Repeat Colonoscopy in 6 to 12 months if cecal polyps are adenomatous and for FU of multiple medium sized adenomatous colon polyps. Above findings were reviewed with the patient and relevant handouts were given and the discharge area. BIOPSIES SHOWED: A. Gastric antrum, biopsy: Gastric antral mucosa with mild reactive changes and minimal chronic inactive gastritis; negative for intestinal metaplasia and dysplasia. B. Colon, cecal polyps x2: Tubular adenoma; negative for high-grade dysplasia and carcinoma, and colonic mucosa with minimal hyperplastic changes. C. Colon, transverse, 2 polyps: Tubular adenomas, 4 pieces; negative for high- grade dysplasia and carcinoma. D. Colon, transverse, at 60 cm, polyp: Tubular adenoma, appears excised; negative for high-grade dysplasia and carcinoma. E. Colon, sigmoid, polyp: Tubular adenoma, completely excised; negative for h igh-grade dysplasia and carcinoma TODAY'S VISIT: Patient is here today for follow-up and to discuss upper endoscopy and colonoscopy results. Patient denies any ill effects from the prep, anesthesia or procedure itself. Patient reports that she has been feeling better, however occasionally she will still have acid reflux. Gastric mucosa with mild reactive changes seen. Tubular adenomas found largest almost 2 cm found in transverse colon 4 pieces negative for high-grade dysplasia or carcinoma. Recommendation was made for patient to return for colorectal screening in 6-12 months. Patient reports that she is moving her bowels well for the most part. Occasional constipation. Occasional blood after bowel movement when wiping. No actual melena, hematochezia. [facility] Medical History (Updated 09/30/24 @ 20:21 by Leatha Brice [facility]) Diverticulosis Tubular adenoma of colon Anemia GERD (gastroesophageal reflux disease) CKD (chronic kidney disease) Depression DJD (degenerative joint disease) Obstructive sleep apnea on CPAP Hyperlipidemia Insulin dependent type 2 diabetes mellitus Morbid obesity Endometrial cancer Fibromyalgia Hypertension Diabetes Surgical History Hx of hand surgery History of esophagogastroduodenoscopy (EGD) History of thyroid surgery Hx of colonoscopy Hx of section S/P total abdominal hysterectomy and bilateral salpingo-oophorectomy Family History Mother Diabetes HTN (hypertension) Sister Diabetes Father Stroke HTN (hypertension) Social History Household Members: None Housing: Apartment Alcohol intake: current Alcohol intake frequency: holidays/special occasions only Patient Tobacco Use Status: Never used Tobacco Current occupational status: retired Sexual orientation: Straight/Heterosexual Gender identity: Female Female Reproductive History Menstrual Age of Menarche: 12 Review of Systems Const Denies weight gain and Denies weight loss ENT Reports no additional complaints, Denies dysphagia and Denies odynophagia Card Reports no additional complaints Resp Reports no additional complaints GI Denies abdominal pain, Denies belching, Denies melena, Reports bloating, Denies change in bowel habits, Reports constipation (Occasional), Denies dysphagia, Denies excessive flatus, Denies dyspepsia, Reports heartburn (Occasional), Denies diarrhea, Denies loose stools, Denies nausea, Denies odynophagia and Denies vomiting Reports no additional complaints Musc Reports no additional complaints Neuro Reports no additional complaints Psych Reports no additional complaints Endo Reports no additional complaints Physical Exam Vital Signs: Last Vital Signs Pulse 56 09/26/24 09:15 BP 132/72 09/26/24 09:15 Pulse Ox 96 01/10/25 09:15 Oxygen Delivery Method Room Air 09/26/24 09:15 BMI result Body Mass Index 49.9 Const General: healthy appearing and no acute distress Nutritional Appearance: obese Orientation/consciousness: patient oriented x3 Resp Effort & Inspection: normal respiratory effort, able to speak in complete sentences, no tracheal deviation and symmetric chest movement Auscultation: clear to auscultation bilaterally Cardio Rate: regular rate GI Inspection: Yes normal to inspection, No distended and Yes obesity Palpation (GI): Soft to palpation, not firm, nontender and No hepatosplenomegaly present Auscultation: normal bowel sounds General: Yes no CVA tenderness Back/Spine/Pelvis Back: no CVA tenderness Skin General skin exam: elasticity normal, turgor normal and dry skin Neuro General: patient oriented x3 Psych Appearance: grossly normal Mental Status: mental status grossly normal Assessment & Plan Assessment & Plan (1) Tubular adenoma of colon: Code(s): D12.6 - Benign neoplasm of colon, unspecified Category: Medical (2) Diverticulosis: Code(s): K57.90 - Diverticulosis of intestine, part unspecified, without perforation or abscess without bleeding Category: Medical (3) Dyspepsia: Code(s): R10.13 - Epigastric pain (4) Dysphagia: Code(s): R13.10 - Dysphagia, unspecified Qualifiers: Dysphagia type: pharyngoesophageal phase Qualified Code(s): R13.14 - Dysphagia, pharyngoesophageal phase (5) GERD (gastroesophageal reflux disease): Code(s): K21.9 - Gastro-esophageal reflux disease without esophagitis Qualifiers: Esophagitis presence: without esophagitis Qualified Code(s): K21.9 - Gastro-esophageal reflux disease without esophagitis (6) Constipation: Code(s): K59.00 - Constipation, unspecified Qualifiers: Constipation type: slow transit constipation Qualified Code(s): K59.01 - Slow transit constipation Plan Patient will continue PPI. Avoid dietary triggers and late night snacking. Staying upright for minimum 3 hours after meals discussed with patient. Patient will start taking famotidine as needed at bedtime. Script for Proctosol send as patient reports occasional blood after bowel movement. Continue Dulcolax daily. Message sent to surgical schedulers to book procedure for patient. Two polyps from transverse colon received in pieces. Will need to go in recheck polypectomy site. What to expect before during and after procedure discussed with patient. Stressed the importance of good bowel prep and clear liquid diet day before procedure. Patient is agreeable to this plan and verbalizes u nderstanding of instructions. She was given the opportunity to ask questions and all questions answered. Thank you for allowing me to participate in her care Medications: New famotidine 20 mg PO BEDTIME 30 tabs 3RF hydrocortisone 2.5% (Proctosol HC) 1 appl [place] BID-QID PRN 30 grams 2RF hemorrhoids K64.9 - Unspecified hemorrhoids polyethylene glycol 3350 (Miralax) As directed by gastro[facility]ology [facility] at [facility] 238 grams PO ONCE 238 grams 0RF Z12.11 - Encounter for screening for malignant neoplasm of colon Refilled esomeprazole magnesium (Nexium) 40 mg PO DAILY 90 caps 2RF K21.9 - Gastro- esophageal reflux disease without esophagitis bisacodyl (Dulcolax (bisacodyl)) 10 mg (2 x 5 mg) PO BEDTIME 180 tabs 4RF Coding Level of Care Code Est Pt Level 4 (08178) Complex EM visit Add On G2211 Diagnoses Tubular adenoma of colon D12.6 Diverticulosis K57.90 Dyspepsia R10.13 Pharyngoesophageal dysphagia R13.14 Dysphagia type: pharyngoesophageal phase Gastroesophageal reflux disease without esophagitis K21.9 Esophagitis presence: without esophagitis Slow transit constipation K59.01 Constipation type: slow transit constipation Time Spent (min) 35 Comment 25 minutes spent with patient and additional 10 minutes spent reviewing her records
[2024-09-26 09:15] VITALS: BP 132/72; PULSE 56; O2SAT 96; BMI 49.9
== END ==
PROVIDERS: Visit Provider Nurse Practitioner Family
DX: D12.6 Benign neoplasm of colon, unspecified (principal); K57.90 Diverticulosis of intestine, part unspecified, without perforation or abscess without bleeding; R10.13 Epigastric pain; R13.14 Dysphagia, pharyngoesophageal phase; K21.9 Gastro-esophageal reflux disease without esophagitis; K59.01 Slow transit constipation
CPT/HCPCS: 99214; G2211

== ENCOUNTER → 2024-09-26 09:02 | Outpatient (BNVA) | payer OTHER, SELFPAY | PROVIDERS: Visit Provider Nurse Practitioner Family | DX: D12.6 Benign neoplasm of colon, unspecified (principal); K57.90 Diverticulosis of intestine, part unspecified, without perforation or abscess without bleeding; K59.01 Slow transit constipation; K21.9 Gastro-esophageal reflux disease without esophagitis; R10.13 Epigastric pain; R13.14 Dysphagia, pharyngoesophageal phase | CPT/HCPCS: 99212 ==

== ENCOUNTER 2025-04-03 08:57 | Day surgery (SDC) | payer OTHER, SELFPAY ==
--- OUTSIDE RECORDS SUMMARY | 2025-03-13 13:11 | XMS_ITS | Patient Health Record ---
Author Organization [facility] Address [address], [place] [id number] Care Team Providers Care Contact And Service Clerks Supervisor Name Role Phone NO, PCP Primary Care Provider Norman Roger [phone] Allergies Allergen (clinical drug ingredient) Drug/Non Drug [...] Insured Coverage Start Date Coverage End Date [place] [employer] [facility] [address] Attn Claims [facility] [email or web address] [address] [id number] McbrideJasmyn barros Self - patient is the insured 8 [facility] [address] [place] [phone] McbrideJasmyn barros Self - patient is the insured 0 [employer] [address] [place] [address] [id number] Jasmyn Mcbride Self - patient is the insured 0 Medical (General) History Medical History History ICD Code asthma diabetes fainting/dizziness high blood pressure hx of uterine cancer (has had hysterecto my) engage in recreational drug use Allergic to Jarret Inhibitor, IV dye
[2025-04-01 11:51] VITALS: BMI 49.8
--- NOTE | 2025-04-02 12:26 | HO.ANESPROP2 ---
Documented by User: Maru Pugh NP 04/02/25 13:16 HPI - Anesthesia Eval Consult details Narrative: 64yo F for Colonoscopy BMI 49.8 By chart review: Hx CKD (Last creat 2.86 05/2024) and CHF per PCP note. Not listed as dx in expanse - follows renal and cardiology. Called for last office eval notes CKD: Follows renal in [facility]. Last office visit 10/2024 states baseline creat 1.5 to 1.7, but continued NSAID use CHF: Follows [facility]. last office eval 12/2024 - stable and Euvolemic, maintained on Lasix 20mg daily. ECHO 2023 [place] PMFSH Active Problems Active Problems: All Active Problems Diverticulosis (Acute) Tubular adenoma of colon (Acute) Encounter for screening colonoscopy (Acute) Vaginal itching (Acute) Candidiasis of genitalia in female (Acute) Eczema (Acute) Vulvar lesion (Acute) Bacterial vaginosis (Acute) Urine incontinence (Acute) Well woman exam (Acute) Depression (Acute) DJD (degenerative joint disease) (Acute) Fibromyalgia (Acute) Obstructive sleep apnea on CPAP (Acute) Hyperlipidemia (Acute) Hypertension (Acute) Insulin dependent type 2 diabetes mellitus (Acute) Morbid obesity (Acute) Diabetes (Acute) Past Medical History Medical History (Updated 04/02/25 @ 12:32 by Maru Pugh NP) CHF (congestive heart failure) Diverticulosis Tubular adenoma of colon Anemia GERD (gastroesophageal reflux disease) CKD (chronic kidney disease) Depression DJD (degenerative joint disease) Obstructive sleep apnea on CPAP Hyperlipidemia Insulin dependent type 2 diabetes mellitus Morbid obesity Endometrial cancer Fibromyalgia Hypertension Diabetes Family History Family History Mother Diabetes HTN (hypertension) Sister Diabetes Father Stroke HTN (hypertension) Family history of problems with anesthesia: No Surgical History Surgical History Hx of hand surgery History of esophagogastroduodenoscopy (EGD) History of thyroid surgery Hx of colonoscopy Hx of section S/P total abdominal hysterectomy and bilateral salpingo-oophorectomy History of Problems with Anesthesia: No Social History Social History Household Members: None Housing: Apartment Alcohol intake: current Alcohol intake frequency: holidays/special occasions only Patient Tobacco Use Status: Never used Tobacco Use of substances other than those prescribed or required for medical reasons: No Are you DNR?: No Advance Directives: No Advance Directives Information Provided: Yes Patient : No : No Poor oral hygiene: No Current occupational status: retired Sexual orientation: Straight/Heterosexual Gender identity: Female Meds Allergies Allergy/AdvReac Type Severity Reaction Status Date / Time JAKY Inhibitors (Jaky Allergy Severe SWELLING Verified 09/26/24 09:22 Inhibitors) guaifenesin (From Robitussin Allergy Severe SWELLING Verified 09/26/24 09:22 A-C) Iodinated Contrast Media (IV Allergy Severe SWELLING Verified 09/26/24 09:22 Dye, Iodine Containing) amitriptyline Allergy Intermediate Swelling Verified 04/01/25 11:47 empagliflozin (From Allergy Intermediate Itching Verified 04/01/25 11:47 Jardiance) gabapentin Allergy Intermediate Swelling Verified 04/01/25 11:47 metformin Allergy Intermediate Swelling Verified 04/01/25 11:47 nifedipine (NIFEDIPINE) Allergy Intermediate SWELLING Verified 04/01/25 11:47 pioglitazone Allergy Intermediate Swelling Verified 04/01/25 11:47 pregabalin (From Lyrica) Allergy Intermediate Swelling Verified 04/01/25 11:47 semaglutide (From Ozempic) Allergy Intermediate Swelling Verified 04/01/25 11:47 duloxetine AdvReac Intermediate Migraine Verified 09/26/24 09:22 tramadol AdvReac Intermediate Migraine Verified 09/26/24 09:22 Robitussin Chest Congestion Allergy Intermediate Swelling Uncoded 04/01/25 11:47 Robitussin Cold/Congestion Allergy Intermediate Swelling Uncoded 04/01/25 11:47 Home Medications ?Medication ?Instructions ?Recorded ?Confirmed ?Last Taken ?Type acetaminophen 325 mg capsule 325 mg PO QID PRN Mild Pain (Scale 07/11/21 04/01/25 Unknown History (Tylenol) Score 1-4) carvedilol 25 mg tablet 25 mg PO BID 07/11/21 04/03/25 04/03/25 History cholecalciferol (vitamin D3) 25 25 mcg PO DAILY 01/16/24 04/01/25 Unknown History mcg (1,000 unit) capsule (Vitamin D3) ondansetron HCl 4 mg tablet 4 mg PO Q8H PRN Nausea 01/16/24 04/01/25 Unknown History insulin aspart U-100 100 unit/mL 14 unit subcut TID 03/14/24 04/01/25 Unknown History (3 mL) subcutaneous pen (Novolog FlexPen U-100 Insulin aspart) ascorbic acid (vitamin C) 250 mg 250 mg PO DAILY 03/31/24 04/01/25 Unknown History chewable tablet blood-glucose sensor (FreeStyle #1 ea 03/31/24 09/12/24 Unknown History Lynsey 3 Sensor device) insulin degludec 200 unit/mL (3 64 unit subcut DAILY 09/12/24 04/03/25 04/03/25 History mL) subcutaneous pen (Tresiba FlexTouch U-200 insulin) blood sugar diagnostic (FreeStyle #10 ea 09/26/24 Unknown History Lite Strips) calcium carbonate 200 mg PO DAILY 09/26/24 04/01/25 Unknown History cetirizine 10 mg tablet 10 mg PO DAILY 09/26/24 04/01/25 Unknown History fexofenadine 60 mg tablet 60 mg PO DAILY 09/26/24 04/01/25 Unknown History fluticasone propionate 50 1 spray intranasal DAILY 09/26/24 04/01/25 Unknown History mcg/actuation nasal spray,suspension furosemide 20 mg tablet 20 mg PO DAILY 09/26/24 04/01/25 Unknown History hydrochlorothiazide 12.5 mg tablet 12.5 mg PO DAILY 09/26/24 04/01/25 Unknown History pen needle, diabetic, safety 32 #100 ea 09/26/24 Unknown History gauge x 5/32 (True Comfort Safety Pen Needle) rosuvastatin 10 mg tablet 10 mg PO BEDTIME 09/26/24 04/01/25 Unknown History tirzepatide 7.5 mg/0.5 mL mg subcut 04/03/25 04/03/25 03/17/25 History subcutaneous pen injector (Rachel) Exam Height,Weight and Vital Signs: Height 5 ft 4 in Weight 131.542 kg Narrative Narrative: EKG 07/2024 Ventricular Rate: 61 BPM Atrial Rate: 61 BPM P-R Interval: 170 ms QRS Duration: 96 ms Q-T Interval: 464 ms QTC Calculation(Bazett): 467 ms P Hancock: 50 degrees R Hancock: -26 degrees T Hancock: 33 degrees Normal sinus rhythm Septal infarct (cited on or before 31-AUG-2023) Abnormal ECG When compared with ECG of 31-AUG-2023 11:36, No significant change was found Confirmed by Quentin Salazar ([id number]) on 07/18/2024 3:47:53 PM ECHO 07/2024 Summary The left ventricle is poorly visualized but improved with contrast enhancement. The left ventricular size is normal. The left ventricular wall thickness is mildly increased. There is mild concentric left ventricular hypertrophy. The LV systolic function is normal . The left ventricular ejection fraction is 55-60 %. There are no regional wall motion abnormalities. Left ventricular filling pressures are indeterminate. There is mild mitral annular calcification. The mitral valve opening is normal. There is no significant mitral regurgitation. The right ventricle is normal in size. Right ventricular systolic function appears preserved. The inferior vena cava is mildly dilated with poor inspiratory collapse consistent with elevated right atrial pressures. Assessment and Plan Final Anesthetic Review Family History of Problems with Anesthesia: No History of Problems with Anesthesia: No Documented by User: Lorie Shelton MD 04/03/25 10:05 [facility] Past Medical History Medical History (Updated 04/02/25 @ 12:32 by Maru Pugh NP) CHF (congestive heart failure) Diverticulosis Tubular adenoma of colon Anemia GERD (gastroesophageal reflux disease) CKD (chronic kidney disease) Depression DJD (degenerative joint disease) Obstructive sleep apnea on CPAP Hyperlipidemia Insulin dependent type 2 diabetes mellitus Morbid obesity Endometrial cancer Fibromyalgia Hypertension Diabetes Family History Family History Mother Diabetes HTN (hypertension) Sister Diabetes Father Stroke HTN (hypertension) Surgical History Surgical History Hx of hand surgery History of esophagogastroduodenoscopy (EGD) History of thyroid surgery Hx of colonoscopy Hx of section S/P total abdominal hysterectomy and bilateral salpingo-oophorectomy Social History Social History Household Members: None Housing: Apartment Alcohol intake: current Alcohol intake frequency: holidays/special occasions only Patient Tobacco Use Status: Never used Tobacco Use of substances other than those prescribed or required for medical reasons: No Are you DNR?: No Advance Directives: No Advance Directives Information Provided: Yes Patient : No : No Poor oral hygiene: No Current occupational status: retired Sexual orientation: Straight/Heterosexual Gender identity: Female Meds Allergies Allergy/AdvReac Type Severity Reaction Status Date / Time JAKY Inhibitors (Jaky Allergy Severe SWELLING Verified 09/26/24 09:22 Inhibitors) guaifenesin (From Robitussin Allergy Severe SWELLING Verified 09/26/24 09:22 A-C) Iodinated Contrast Media (IV Allergy Severe SWELLING Verified 09/26/24 09:22 Dye, Iodine Containing) amitriptyline Allergy Intermediate Swelling Verified 04/01/25 11:47 empagliflozin (From Allergy Intermediate Itching Verified 04/01/25 11:47 Jardiance) gabapentin Allergy Intermediate Swelling Verified 04/01/25 11:47 metformin Allergy Intermediate Swelling Verified 04/01/25 11:47 nifedipine (NIFEDIPINE) Allergy Intermediate SWELLING Verified 04/01/25 11:47 pioglitazone Allergy Intermediate Swelling Verified 04/01/25 11:47 pregabalin (From Lyrica) Allergy Intermediate Swelling Verified 04/01/25 11:47 semaglutide (From Ozempic) Allergy Intermediate Swelling Verified 04/01/25 11:47 duloxetine AdvReac Intermediate Migraine Verified 09/26/24 09:22 tramadol AdvReac Intermediate Migraine Verified 09/26/24 09:22 Robitussin Chest Congestion Allergy Intermediate Swelling Uncoded 04/01/25 11:47 Robitussin Cold/Congestion Allergy Intermediate Swelling Uncoded 04/01/25 11:47 Home Medications ?Medication ?Instructions ?Recorded ?Confirmed ?Last Taken ?Type acetaminophen 325 mg capsule 325 mg PO QID PRN Mild Pain (Scale 07/11/21 04/01/25 Unknown History (Tylenol) Score 1-4) carvedilol 25 mg tablet 25 mg PO BID 07/11/21 04/03/25 04/03/25 History cholecalciferol (vitamin D3) 25 25 mcg PO DAILY 01/16/24 04/01/25 Unknown History mcg (1,000 unit) capsule (Vitamin D3) ondansetron HCl 4 mg tablet 4 mg PO Q8H PRN Nausea 01/16/24 04/01/25 Unknown History insulin aspart U-100 100 unit/mL 14 unit subcut TID 03/14/24 04/01/25 Unknown History (3 mL) subcutaneous pen (Novolog FlexPen U-100 Insulin aspart) ascorbic acid (vitamin C) 250 mg 250 mg PO DAILY 03/31/24 04/01/25 Unknown History chewable tablet blood-glucose sensor (FreeStyle #1 ea 03/31/24 09/12/24 Unknown History Lynsey 3 Sensor device) insulin degludec 200 unit/mL (3 64 unit subcut DAILY 09/12/24 04/03/25 04/03/25 History mL) subcutaneous pen (Tresiba FlexTouch U-200 insulin) blood sugar diagnostic (FreeStyle #10 ea 09/26/24 Unknown History Lite Strips) calcium carbonate 200 mg PO DAILY 09/26/24 04/01/25 Unknown History cetirizine 10 mg tablet 10 mg PO DAILY 09/26/24 04/01/25 Unknown History fexofenadine 60 mg tablet 60 mg PO DAILY 09/26/24 04/01/25 Unknown History fluticasone propionate 50 1 spray intranasal DAILY 09/26/24 04/01/25 Unknown History mcg/actuation nasal spray,suspension furosemide 20 mg tablet 20 mg PO DAILY 09/26/24 04/01/25 Unknown History hydrochlorothiazide 12.5 mg tablet 12.5 mg PO DAILY 09/26/24 04/01/25 Unknown History pen needle, diabetic, safety 32 #100 ea 09/26/24 Unknown History gauge x 5/32 (True Comfort Safety Pen Needle) rosuvastatin 10 mg tablet 10 mg PO BEDTIME 09/26/24 04/01/25 Unknown History tirzepatide 7.5 mg/0.5 mL mg subcut 04/03/25 04/03/25 03/17/25 History subcutaneous pen injector (Mounjaro) Exam Airway Mallampati Class: III (thick neck) TM Dist: >3cm Neck ROM: Full Heart: rrr Lungs: cta Assessment and Plan Assessment Anesthesia Assessment: Anesthesia Plan Discussed, PAT Visit and Chart Reviewed Final Anesthetic Review NPO: Yes ASA Class: III Final Preanesthetic Review: No Changes in Pt Med Stat, Meds/Allgs Chart Reviewed and Consent Obtained/Reviewed Patient Risk: Intermediate Procedure Risk: Low Anesthetic Plan Anesthetic Plan: MAC: Disposition: Standard PACU
[2025-04-03 09:27] VITALS: BMI 49.9
[2025-04-03 09:33] LABS: Glucose, Whole Blood 126 mg/dL (60-115)
[2025-04-03 09:44] VITALS: BP 143/63; PULSE 68; RESP 16; TEMP 36.6; O2SAT 96
[2025-04-03] MEDS: Lactated Ringers 1,000 ML 50 ML IVCONT (09:55)
--- NOTE | 2025-04-03 09:58 | MHC.SHP ---
Pre-Procedural Eval Section A - 24 Hr Update-Section A only Date of Service: 04/03/25 The patient is an INPATIENT: No The patient has been examined within 24 hours of the surgical procedure. The History & Physical has been completed within 30 days and I have reviewed it.: No Section B - Complete if H&P > 30 days Chief Complaint: Surveillance of colon polyps Relevant Family History (Specify if Yes): No Relevant Social History: None Present Medications: see Short Stay Collaborative assessment Medical History: Significant History (Depression DJD (degenerative joint disease) Obstructive sleep apnea on CPAP Hyperlipidemia Insulin dependent type 2 diabetes mellitus Morbid obesity Endometrial cancer Fibromyalgia Hypertension Diabetes) History of Previous Operations: Relevant previous surgery/procedure and date(s) (Hx of colonoscopy Hx of section S/P total abdominal hysterectomy and bilateral salpingo-oophorectomy) Allergies: Allergies Allergy/AdvReac Type Severity Reaction Status Date / Time JARRET Inhibitors (Jarret Allergy Severe SWELLING Verified 09/26/24 09:22 Inhibitors) guaifenesin (From Robitussin Allergy Severe SWELLING Verified 09/26/24 09:22 A-C) Iodinated Contrast Media (IV Allergy Severe SWELLING Verified 09/26/24 09:22 Dye, Iodine Containing) amitriptyline Allergy Intermediate Swelling Verified 04/01/25 11:47 empagliflozin (From Allergy Intermediate Itching Verified 04/01/25 11:47 Jardiance) gabapentin Allergy Intermediate Swelling Verified 04/01/25 11:47 metformin Allergy Intermediate Swelling Verified 04/01/25 11:47 nifedipine (NIFEDIPINE) Allergy Intermediate SWELLING Verified 04/01/25 11:47 pioglitazone Allergy Intermediate Swelling Verified 04/01/25 11:47 pregabalin (From Lyrica) Allergy Intermediate Swelling Verified 04/01/25 11:47 semaglutide (From Ozempic) Allergy Intermediate Swelling Verified 04/01/25 11:47 duloxetine AdvReac Intermediate Migraine Verified 09/26/24 09:22 tramadol AdvReac Intermediate Migraine Verified 09/26/24 09:22 Robitussin Chest Congestion Allergy Intermediate Swelling Uncoded 04/01/25 11:47 Robitussin Cold/Congestion Allergy Intermediate Swelling Uncoded 04/01/25 11:47 Review of Systems Sugical H&P ROS: Negative: Constitution, Cardiovascular and Respiratory and Yes, Specify: Gastrointestinal (Epigastric pain) Exam Surgical H&P Exam: Normal: Heart, Normal: Lungs, Normal: Extremities and Normal: Abdomen Plan Diagnosis/Plan: Change (proceed with colonoscopy) I have reviewed the history and physical and performed a pertinent physical examination on my patient. No changes have occurred unless specified. Time Spent With Patient Time: Total time managing care of this patient today ____ minutes.
[2025-04-03 11:17] VITALS: BP 111/56; PULSE 73; RESP 16; TEMP 36.1; O2SAT 96
--- NOTE | 2025-04-03 11:17 | P.OPN-COLO_ITS ---
Colonoscopy Operative Note Operative Note Date of Service: 04/03/25 Narrative: COLONOSCOPY TILL CECUM WITH BIOPSIES, SNARE POLYPECTOMY AND SUBMUCOSAL INJECTION Pre-op diagnosis: Surveillance for colon polyps. Post-op diagnosis:? Colon polyps, Diverticulosis, hemorrhoids Endoscopist:? Janet Marroquin MD Anesthesia:?MAC Consent: Indications for the procedure and potential complications of bleeding, perforation, reaction to medications and missed diagnosis were discussed with the patient and informed consent was obtained. Instrument: Olympus PCF H 190 L variable stiffness pediatric colonoscope Monitoring: Vital signs and clinical assessment, intermittent blood pressure monitoring, continuous EKG monitoring, Pulse oximetry and Carbon Dioxide monitoring were done throughout the procedure. Please see anesthesia flowsheet. Colon withdrawl time was 37 minutes. Procedure: The patient was placed in the left lateral decubitis position and pre-procedure medications were administered. After a digital rectal examination of the ano-rectum, the video colonoscope was inserted into the rectum and advanced through the colon to the cecum. The colonoscope was slowly withdrawn in a retrograde panoramic fashion and the colon mucosa was carefully examined including a retroflexed view of the rectum. Findings and interventions are described below. Procedure Difficulty: without difficulty Findings: Terminal Ileum: Not evaluated Cecum: A 12-15 mm flat polyp just adjacent to the appendicular orifice. Polyp was raised with 2 cc of [place] and removed piecemeal with a stiff hot snare and a cold snare. Residual polyp was removed with cold biopsies and polypectomy site was ablated with cautery using the snare tip. Ascending Colon: Normal Transverse Colon: Past polypectomy site seen at 80 cms with a hemoclip in place with surrounding residual polyp. Polyp was removed with a stiff hot snare and ablated with cautery using the snare tip Descending Colon: Normal Sigmoid Colon: Moderate diverticulosis Rectum: Normal Ano-rectum: Moderate internal hemorrhoids Colon preparation: Good after copious irrigation. [place] Bowel Preparation Scale Right colon; 2 Transverse colon: 2 Left colon; 2 (0 = Unprepared colon segment with mucosa not seen due to solid stool that cannot be cleared. 1 = Portion of mucosa of the colon segment seen, but other areas of the colon segment not well seen due to staining, residual stool and/or opaque liquid. 2 = Minor amount of residual staining, small fragments of stool and/or opaque liquid, but mucosa of colon segment seen well. 3 = Entire mucosa of colon segment seen well with no residual staining, small fragments of stool or opaque liquid) Impression and Post Procedure Diagnosis: Colonoscopy Findings: Two polyps were removed Moderate diverticulosis seen in the left colon Moderate hemorrhoids on retroflexed exam. Plan: I will send a letter with biopsy results. Repeat Colonoscopy in 6 to 12 months if polyps are adnomatous and 3 years if polyps are hyperplastic. Above findings were reviewed with the patient and relevant handouts were given and the discharge area. BIOPSIES SHOWED: A. Colon, cecal polyp: Hyperplastic colonic mucosa with thermal artifact, consistent with hyperplastic polyp; no adenomatous dysplasia seen. B. Colon, transverse, polyp: Polypoid granulation tissue with hyperplastic mucosa; no adenomatous dysplasia seen. Letter sent to the patient with biopsy results. Patient was placed on the colonoscopy recall list for repeat colonoscopy in 3 years.
[2025-04-03 11:32] VITALS: BP 117/62; PULSE 68; RESP 16; TEMP 36.4; O2SAT 96
== END 2025-04-03 12:10 | disposition home or self-care (01) ==
PROVIDERS: PCP Student in an Organized Health Care Education/Training Program; Visit Provider Internal Medicine Gastroenterology
PROC: 0DJD8ZZ Inspection of Lower Intestinal Tract, Via Natural or Artificial Opening Endoscopic (ICD-10-PCS; CPT 45378; principal; 2025-04-03 10:30)
DX: Z12.11 Encounter for screening for malignant neoplasm of colon (principal); Z86.0101 Personal history of adenomatous and serrated colon polyps; K63.5 Polyp of colon; K57.30 Diverticulosis of large intestine without perforation or abscess without bleeding; K64.8 Other hemorrhoids; K59.01 Slow transit constipation; K21.9 Gastro-esophageal reflux disease without esophagitis; D64.9 Anemia, unspecified; E11.22 Type 2 diabetes mellitus with diabetic chronic kidney disease; I12.9 Hypertensive chronic kidney disease with stage 1 through stage 4 chronic kidney disease, or unspecified chronic kidney disease; N18.9 Chronic kidney disease, unspecified; E78.5 Hyperlipidemia, unspecified; M79.7 Fibromyalgia; G47.33 Obstructive sleep apnea (adult) (pediatric); F32.A Depression, unspecified; M19.90 Unspecified osteoarthritis, unspecified site; E66.01 Morbid (severe) obesity due to excess calories; Z68.42 Body mass index [BMI] 45.0-49.9, adult; Z85.42 Personal history of malignant neoplasm of other parts of uterus; Z79.4 Long term (current) use of insulin; Z79.85 Long-term (current) use of injectable non-insulin antidiabetic drugs; Z79.51 Long term (current) use of inhaled steroids; Z99.89 Dependence on other enabling machines and devices; Z88.8 Allergy status to other drugs, medicaments and biological substances; Z91.041 Radiographic dye allergy status
CPT/HCPCS: 45385; 45380; 45381; 82947; 88305; J2003; J2250; J2704

== ENCOUNTER → 2025-04-03 08:57 | Outpatient (BNV) | payer OTHER, SELFPAY | PROVIDERS: PCP Student in an Organized Health Care Education/Training Program; Visit Provider Internal Medicine Gastroenterology | DX: Z12.11 Encounter for screening for malignant neoplasm of colon (principal); D12.0 Benign neoplasm of cecum; D12.3 Benign neoplasm of transverse colon; K57.30 Diverticulosis of large intestine without perforation or abscess without bleeding; K64.8 Other hemorrhoids | CPT/HCPCS: 45381; 45385 ==